=== PATIENT | female | born 1955 | race Caucasian/White ===

== ENCOUNTER → 2016-11-07 | Outpatient (CLI) | payer MEDICARE ==
[~2016-11-07] MED LIST: B/P; BARIUM SUSPENSION 2.1% (VANILLA SILQ) 450 ML PO ONE; CIPRO; FURO20TA4 PO; IOHEXOL 350 MG/ML 100 ML (OMNIPAQUE 350) VIAL IV ONE; LISI40TA PO; NAPR500T8 PO; NS 100 ML (IVPB) BAG IV ONE; PHEN-640 PO
--- NOTE | 2016-11-07 10:55 | Diagnostic Imaging Report ---
PROCEDURE: CT abdomen with contrast only. TECHNIQUE: Multiple contiguous axial images were obtained through the abdomen after the administration of intravenous contrast. INDICATION: Colitis and rectal bleeding. COMPARISON: No priors. TECHNIQUE: Post-IV contrast-enhanced CT abdomen performed with coronal reconstructions. FINDINGS: There is circumferential wall thickening of the visualized portions of the left colon. The transverse colon and the partially visualized ascending colon showed no wall thickening. No visualized pneumatosis or free air. The abdominal small and large bowel showed no evidence for obstruction. There is no visualized extravasation of the enteric contrast media, no pneumatosis or free gas. There is a moderate-sized retrocardiac gastric hernia, the lung bases nonacute. The abdominal aorta and the visualized proximal mesenteric branches appeared unremarkable. The liver, spleen, adrenals, pancreas unremarkable. The gallbladder partially contracted with no visualized stone. IMPRESSION: Abdominal CT reveals thickening of the doyle of the incompletely visualized descending colon without appreciable obstruction, perforation or abscess. This could reflect inflammatory large bowel disease, infectious colitis or other etiology and in a female patient of this age, nonocclusive ischemic left colitis would be a consideration. Inflammatory changes extend below the [id number] and the distal descending colon, the sigmoid and rectum are not included in the study. No visualized vascular abnormality. Moderate hiatal hernia. Remaining abdominal solid and hollow viscera normal. Dictated by: Dictated on workstation # [id number]
== END ==
LOC: RAD 07:45
PROVIDERS: ATTEND Nurse Practitioner Family
DX: K63.9 Disease of intestine, unspecified; K44.9 Diaphragmatic hernia without obstruction or gangrene
CPT/HCPCS: 74160

== ENCOUNTER 2016-11-15 05:34 | Outpatient (CLI) | payer MEDICARE ==
[~2016-11-15] VITALS: Ht 157.5 cm; Wt 114.8 kg
[~2016-11-15 05:34] MED LIST changes: -BARIUM SUSPENSION 2.1% (VANILLA SILQ) 450 ML PO ONE; -FURO20TA4 PO; -IOHEXOL 350 MG/ML 100 ML (OMNIPAQUE 350) VIAL IV ONE; -LISI40TA PO; -NAPR500T8 PO; -NS 100 ML (IVPB) BAG IV ONE
[2016-11-15] MEDS ORDERED: NAPR500T8 PO (09:44)
[2016-11-15] MEDS ORDERED: FURO20TA4 PO (09:44)
[2016-11-15] MEDS ORDERED: LISI40TA PO (09:44)
== END 2016-11-15 09:45 ==
LOC: PREOP 05:34
PROVIDERS: ATTEND Surgery
DX: Z01.818 Encounter for other preprocedural examination (principal); K21.9 Gastro-esophageal reflux disease without esophagitis; K62.5 Hemorrhage of anus and rectum

== ENCOUNTER 2016-11-19 11:29 | Day surgery (SDC) | payer MEDICARE ==
[~2016-11-19] VITALS: Ht 157.5 cm; Wt 114.8 kg
[~2016-11-19 11:29] MED LIST changes: +FURO20TA4 PO; +LISI40TA PO; +NAPR500T8 PO
[2016-11-19] MEDS ORDERED: LACTATED RINGERS 1,000 ML IV STA (11:36)
[2016-11-19 11:40] VITALS: BP 158/78
[2016-11-19] MEDS ORDERED: HURRICAINE EXT TUBE (BENZOCAINE) XX PRN (11:45)
--- NOTE | 2016-11-19 12:00 | Progress Note-Pre Operative ---
Pre-Operative Progress Note H&P Reviewed The H&P was reviewed, patient examined and no changes noted. Time Seen by Provider: 11:59 Date H&P Reviewed: Nov 19, 2016 Time H&P Reviewed: 12:00 Pre-Operative Diagnosis: Rectal bleed, Gastritis JEANNIE PULLIAM DO Nov 19, 2016 12:00
[2016-11-19] MEDS ORDERED: PROPOFOL INJECTION 0 ML IV ONE (12:09)
[2016-11-19] MEDS ORDERED: MIDAZOLAM 5 MG/5 ML (VERSED) VIAL ONE (12:10)
[2016-11-19] MEDS ORDERED: PROPOFOL INJECTION 50 ML IV ONE (12:48)
--- NOTE | 2016-11-19 13:25 | Progress Note-Post Operative ---
Post-Operative Progess Note Surgeon (s)/Mining Detail Draftsperson (s) Surgeon JEANNIE PULLIAM DO Mining Detail Draftsperson: none Pre-Operative Diagnosis Rectal bleed, Gastritis Post-Operative Diagnosis Gastritis Colon ulcer Diverticula Internal hemorrhoids Procedure & Operative Findings Date of Procedure 11/19/16 Procedure Performed/Findings EGD with bx Colon with cold bx Anesthesia Type IV sedation by ACTUARIAL SCIENCE TEACHER Estimated Blood Loss Estimated blood loss (mL): scant Specimens/Packing Specimens Removed Antral Bx Asc. Colon bx JEANNIE PULLIAM DO Nov 19, 2016 13:25
--- NOTE | 2016-11-19 13:27 | Endoscopy Discharge Instruct ---
Endo Procedure/Findings Findings 1.: Gastritis 2.: Other Findings (colonic ulcer) 3.: Diverticulosis 4.: Internal Hemorrhoids Discharge Instructions - Activity: You might feel a little sleepy until tomorrow. This is due to the medicine you received to relax you. Until tomorrow, you should: NOT drive a car, operate machinery or power tools. NOT drink any alcoholic beverages. NOT make any important decisions or sign importortant papers. Do not return to work until tomorrow, unless otherwise instructed. Resume previous activities tomorrow. Diet: Start by taking liquids. If you tolerate liquids, advance to solid food. Make an appointment for one week. Instructions: 1.: Colonscopy in 5 years Notify Physician - If you experience excessive bleeding, unusual abdominal pain, fever, or chest pain, contact your doctor immediately. [phone] Follow-Up: - I have received and understand the above instructions and will call my doctor if I have any further questions. Patient Signature Date Nurse Signature Other (Relationship) JEANNIE PULLIAM DO Nov 19, 2016 13:27
[2016-11-19 13:45] VITALS: BP 155/69
[2016-11-19 14:15] VITALS: BP 158/75
[2016-11-19 14:25] VITALS: BP 158/75
[2016-11-19] MEDS ORDERED: HURRICAINE EXT TUBE (BENZOCAINE) ONE (14:33)
--- NOTE | 2016-11-19 14:58 | OPERATIVE REPORT ---
DATE OF SERVICE: PREOPERATIVE DIAGNOSES: Abdominal pain, gastritis and rectal bleed with recent history of hematemesis. POSTOPERATIVE DIAGNOSES: Gastritis, blood in the esophagus and stomach, colon ulcer, diverticula, internal hemorrhage. PROCEDURE: 1. EGD with biopsy. 2. Colonoscopy with cold biopsy. SURGEON: Davion Varghese DO. LEAD MECHANICAL ENGINEER: None. ANESTHESIA: IV sedation by PAPER CONE MAKER. BLOOD LOSS: Scant. SPECIMENS: One biopsy from the antrum and one biopsy of an ulcer from the ascending colon. INDICATION FOR PROCEDURE: The patient is a 61-year-old female, who has been having gastritis and GERD-type symptoms according to her for a long period of time. When I was talking to her today, she threw up last night and there was blood in it. She also has a history of possible rectal bleeding and she has had abdominal pain. FINDINGS: The patient did have some blood in the esophagus and looked like it was into the stomach, but did not see any obvious cause for this bleeding. She has a little bit of gastritis, but no varices, no ulcers. In the colon, I saw what looked like to be an ulcer that was bleeding. She had some diverticula and internal hemorrhage, but no other polyps or masses. PROCEDURE NOTE: After informed consent was obtained, the patient was brought to the endoscopy suite, placed in the bed in left lateral decubitus position. She was administered IV sedation by the PAPER CONE MAKER, who monitored her vitals the entire time. I started with the EGD, pushed the scope down the mouth into the esophagus and down in the distal portion of the esophagus, saw some blood. Pushed into the stomach, again saw a little bit of blood up in the cardia and then pushed down towards the antrum. Very minimal erythema and gastritis. Pushed into the duodenum. Did not see any ulcers. Did not see any bleeding. Took a picture in here and took a picture of the antrum, then did a biopsy of the antrum. Retroflexed, again saw a little bit of blood, but did not see any hiatal hernia. Did not see any masses. Did not see any ulcers. Pulled back and looked at the GE junction. It looked good. Again, I did not see any ulcers. Did not see any varices. Pulled up through the esophagus, took another picture. Again did not see anything in the upper portion and then slowly pulled the scope out up into the hard palate and oropharynx. Again, did not see any obvious to cause any type of bleeding. The scope was then removed. I then switched the gloves and switched scopes and went to do colonoscopy. I inserted the coloscopy, pushed into about 110 cm, able to get all the way to the cecum. Took pictures of the appendiceal orifice, then able to get into the terminal ileum, took a picture. No bleeding, no signs of anything on the way in and in the ascending colon saw what looked like possibly some bleeding and an ulcer. Took a biopsy of this, but did not see any other ulcerations or inflammation in the intestine. I slowly withdrew the scope, insufflated, looking circumferentially at the doyle, looking at the cecum, up the ascending colon to the hepatic flexure and then down the transverse colon to the splenic flexure and then into the descending colon. In the sigmoid, saw some diverticula through here and then down into the rectum, retroflexed in the rectal vault, saw some internal hemorrhoids, took a picture of this, and then removed the scope. The patient tolerated the procedure and she was recovered in the endoscopy suite. Job ID: [id number] DocumentID: [id number] Dictated Date: 11/19/2016 13:32:39 Cyber Systems Administrator Date: 11/19/2016 14:03:59 Dictated By: DAVION VARGHESE DO
== END 2016-11-19 14:20 | disposition home or self-care (01) ==
LOC: ENDO 11:29
PROVIDERS: ATTEND Surgery
DX: K29.70 Gastritis, unspecified, without bleeding (principal); K63.3 Ulcer of intestine; K57.30 Diverticulosis of large intestine without perforation or abscess without bleeding; I10 Essential (primary) hypertension; E66.01 Morbid (severe) obesity due to excess calories; Z68.42 Body mass index [BMI] 45.0-49.9, adult

== ENCOUNTER 2017-01-31 15:34 | Emergency (ER) | payer MEDICARE ==
[~2017-01-31] VITALS: Ht 157.5 cm; Wt 108.9 kg
--- OUTSIDE RECORDS SUMMARY | 2017-01-31 15:39 | XMS REPORT ---
Author Author JOSSELINE MARTINEZ [facility] [place] eClinicalWorks Address Unknown Phone Unavailable Care Team Providers Care Periodicals Library Assistant Name Role Phone JOSSELINE MARTINEZ CP Unavailable Allergies, Adverse Reactions, Alerts Substance Reaction Event Type N.K.D.A. 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.27 Active Problem Dermatophytosis of nail 110.1 Active Problem HTN (hypertension) 401.9 Active Problem Acute bronchitis 466.0 Active Problem Chest pain 786.50 Active Problem Need for prophylactic vaccination and inoculation, Influenza V04.81 Active Problem Hallux valgus (acquired) 735.0 Active Problem Pain in joint, ankle and foot 719.47 Active Problem Pain in joint, pelvic region and thigh 719.45 Active Assessment Dyspepsia and other specified disorders of function of stomach 536.8 Active Assessment Depressive disorder, not elsewhere classified 311 Active Assessment Thoracic or lumbosacral neuritis or radiculitis, unspecified 724.4 Active Problem Diarrhea 787.91 Active Problem Thoracic or lumbosacral neuritis or radiculitis, unspecified 724.4 Active Assessment Chest pain 786.50 Active Problem Dyspepsia and other specified disorders of function of stomach 536.8 Active Problem Anxiety state, unspecified 300.00 Active Problem Depressive disorder, not elsewhere classified 311 Active Medications Medication Code System Code Instructions Start Date End Date Status Dosage Omeprazole [facility] [address]-18 20 MG Oct 22, 2013 take 1 capsule by Oral route before a meal 2 times per day Ibuprofen NDC [address]-82 800 MG Orally Three times a day w food Oct 1 [place] [address]-89 40 mg Orally Once a day Feb 25, 2014 1 Capsule dicyclomine NDC 0 20 mg Nov 26, 2013 1 tablet by Oral route 4 times per day PRN take 30 m before meals a dn at hs Lisinopril [facility] [address]-72 20 MG Orally Once a day Jan 21, 2014 take 1 tablet Furosemide [facility] [address]-13 20 MG Orally Once a day September 16, 2014 1 tablet Aspir-81 [facility] [address]-40 81 MG Orally Once a day 1 tablet Potassium [facility] [address]-88 99 mg September 14, 2013 1 Tablet by Oral route 1 time per day Procedures Procedure Coding System Code Date Office Visit, Est Pt., Level 4 CPT-4 86873 Nov 03, 2014 ASSAY OF TROPONIN, QUANT CPT-4 79970 Nov 03, 2014 ELECTROCARDIOGRAM, TRACING CPT-4 21809 Nov 03, 2014 VENIPUNCT, ROUTINE* CPT-4 10808 Nov 03, 2014 ASSAY OF CK (CPK) CPT-4 53898 Nov 03, 2014 COMPLETE CBC W/AUTO DIFF WBC CPT-4 59767 Nov 03, 2014 COMPREHEN METABOLIC PANEL CPT-4 09717 Nov 03, 2014 NATRIURETIC PEPTIDE CPT-4 73573 Nov 03, 2014 LACTATE (LD) (LDH) ENZYME CPT-4 84131 Nov 03, 2014 Vital Signs Date/Time: Nov 03, 2014 Temperature 99.2 F Weight 250.2 lbs Height 59.5 in BMI 49.68 Index Blood Pressure Diastolic 80 mmHg Blood Pressure Systolic 140 mmHg Cardiac Monitoring Heart Rate 74 bpm Results Name Result Date Reference Range Unit Abnormality Flag LDH Summary Purpose eClinicalWorks Submission
--- OUTSIDE RECORDS SUMMARY | 2017-01-31 15:40 | XMS REPORT | Continuity of Care Document ---
Author Author [facility] Address Unknown Phone Unavailable Allergies There is no data. Medications There is no data. Problems Date Dx Coded Attending Type Code Diagnosis Diagnosed By 09/14/2013 STEPHANE CHAMPION CLEO K 300.00 ANXIETY UNSPEC 09/14/2013 CALDERÓN DO CLEO K 311 DEPRESSIVE DISORDER NOS 09/14/2013 CALDERÓN DO CLEO K 536.8 DYSPEPSIA 09/14/2013 CALDERÓN DO CLOE K 724.4 BACK PAIN WITH RADIATION 09/14/2013 CALDERÓN DO CLEO K 780.79 FATIGUE 09/14/2013 CALDERÓN DO CLEO K 787.91 DIARRHEA 09/14/2013 CALDERÓN DO CLEO K 300.00 ANXIETY UNSPEC 09/14/2013 CALDERÓN DO CLEO K 311 DEPRESSIVE DISORDER NOS 09/14/2013 CALDERÓN DO CLEO K 536.8 DYSPEPSIA 09/14/2013 CALDERÓN DO CLEO K 724.4 BACK PAIN WITH RADIATION 09/14/2013 STEPHANE CHAMPION CLEO K 780.79 FATIGUE 09/14/2013 CALDERÓN DO CLEO K 787.91 DIARRHEA 09/14/2013 MARTINEZJOSSELINE CARTY APRN R 300.00 ANXIETY UNSPEC 09/14/2013 MARTINEZJOSSELINE CARTY APRN R 311 DEPRESSIVE DISORDER NOS 09/14/2013 MARTINEZJOSSELINE CARTY APRN R 536.8 DYSPEPSIA 09/14/2013 MARTINEZ JOSSELINE SHELTON R 724.4 BACK PAIN WITH RADIATION 09/14/2013 MARTINEZ JOSSELINE SHELTON R 780.79 FATIGUE 09/14/2013 MARTINEZ JOSSELINE SHELTON R 787.91 DIARRHEA 09/14/2013 CALDERÓN DO CLEO K 300.00 ANXIETY UNSPEC 09/14/2013 CALDERÓN DO CLEO K 311 DEPRESSIVE DISORDER NOS 09/14/2013 CALDERÓN DO CLEO K 536.8 DYSPEPSIA 09/14/2013 CALDERÓN DO CLEO K 724.4 BACK PAIN WITH RADIATION 09/14/2013 CALDERÓN DO, CLEO K 780.79 FATIGUE 09/14/2013 CALDERÓN DO, CLEO K 787.91 DIARRHEA 09/14/2013 CALDERÓN DO, CLEO K 300.00 ANXIETY UNSPEC 09/14/2013 CALDERÓN DO, CLEO K 311 DEPRESSIVE DISORDER NOS 09/14/2013 CALDERÓN DO, CLEO K 536.8 DYSPEPSIA 09/14/2013 CALDERÓN DO, CLEO K 724.4 BACK PAIN WITH RADIATION 09/14/2013 CALDERÓN DO, CLEO K 780.79 FATIGUE 09/14/2013 CALDERÓN DO, CLEO K 787.91 DIARRHEA 09/14/2013 CALDERÓN DO, CLEO K 300.00 ANXIETY UNSPEC 09/14/2013 CALDERÓN DO, CLEO K 311 DEPRESSIVE DISORDER NOS 09/14/2013 CALDERÓN DO, CLEO K 536.8 DYSPEPSIA 09/14/2013 CALDERÓN DO, CLEO K 724.4 BACK PAIN WITH RADIATION 09/14/2013 CALDERÓN DO, CLEO K 780.79 FATIGUE 09/14/2013 CALDERÓN DO, CLEO K 787.91 DIARRHEA 09/14/2013 MARTINEZ DIRECTOR OF DONOR RELATIONSJOSSELINE R 300.00 ANXIETY UNSPEC 09/14/2013 MARTINEZ DIRECTOR OF DONOR RELATIONS, JOSSELINE R 311 DEPRESSIVE DISORDER NOS 09/14/2013 MARTINEZ DIRECTOR OF DONOR RELATIONS, JOSSELINE R 536.8 DYSPEPSIA 09/14/2013 MARTINEZ DIRECTOR OF DONOR RELATIONS, JOSSELINE R 724.4 BACK PAIN WITH RADIATION 09/14/2013 MARTINEZ DIRECTOR OF DONOR RELATIONS, JOSSELINE R 780.79 FATIGUE 09/14/2013 MARTINEZ DIRECTOR OF DONOR RELATIONS, JOSSELINE R 787.91 DIARRHEA 09/14/2013 MARTINEZ DIRECTOR OF DONOR RELATIONS, JOSSELINE R 300.00 ANXIETY UNSPEC 09/14/2013 MARTINEZ DIRECTOR OF DONOR RELATIONS, JOSSELINE R 311 DEPRESSIVE DISORDER NOS 09/14/2013 MARTINEZ DIRECTOR OF DONOR RELATIONS, JOSSELINE R 536.8 DYSPEPSIA 09/14/2013 MARTINEZ DIRECTOR OF DONOR RELATIONS, JOSSELINE R 724.4 BACK PAIN WITH RADIATION 09/14/2013 MARTINEZ DIRECTOR OF DONOR RELATIONS, JOSSELINE R 780.79 FATIGUE 09/14/2013 MARTINEZ DIRECTOR OF DONOR RELATIONS, JOSSELINE R 787.91 DIARRHEA 09/14/2013 CALDERÓN DO, CLEO K 300.00 ANXIETY UNSPEC 09/14/2013 CALDERÓN DO, CLEO K 311 DEPRESSIVE DISORDER NOS 09/14/2013 CALDERÓN DO, CLEO K 536.8 DYSPEPSIA 09/14/2013 CALDERÓN DO, CLEO K 724.4 BACK PAIN WITH RADIATION 09/14/2013 CALDERÓN DO, CLEO K 780.79 FATIGUE 09/14/2013 CALDERÓN DO, CLEO K 787.91 DIARRHEA 09/14/2013 CALDERÓN DO, CLEO K 300.00 ANXIETY UNSPEC 09/14/2013 CALDERÓN DO, CLEO K 311 DEPRESSIVE DISORDER NOS 09/14/2013 CALDERÓN DO, CLEO K 536.8 DYSPEPSIA 09/14/2013 CALDERÓN DO, CLEO K 724.4 BACK PAIN WITH RADIATION 09/14/2013 CALDERÓN DO, CLEO K 780.79 FATIGUE 09/14/2013 CALDERÓN DO, CLEO K 787.91 DIARRHEA 09/24/2013 CALDERÓN DO, CLEO K 719.47 PAIN- FOOT 09/24/2013 JOSSELINE MARTINEZ APRN 719.47 PAIN- FOOT 09/24/2013 CALDERÓN DO, CLEO K 719.47 PAIN- FOOT 09/24/2013 CALDERÓN DO, CLEO K 719.47 PAIN- FOOT 09/24/2013 CALDERÓN DO, CLEO K 719.47 PAIN- FOOT 09/24/2013 MARTINEZ JOSSELINE SHELTON 719.47 PAIN- FOOT 09/24/2013 MARTINEZ JOSSELINE SHELTON 719.47 PAIN- FOOT 09/24/2013 CALDERÓN DO, CLEO K 719.47 PAIN- FOOT 09/24/2013 CALDERÓN DO, CLEO K 719.47 PAIN- FOOT 11/26/2013 CALDERÓN DO, CLEO K 719.45 PAIN- HIP 11/26/2013 CALDERÓN DO, CLEO K V04.81 FLU SHOT 11/26/2013 CALDERÓN DO, CLEO K 719.45 PAIN- HIP 11/26/2013 CALDERÓN DO, CLEO K V04.81 FLU SHOT 11/26/2013 CALDERÓN DO, CLEO K 719.45 PAIN- HIP 11/26/2013 CALDERÓN DO, CLEO K V04.81 FLU SHOT 11/26/2013 MARTINEZ JOSSELINE SHELTON 719.45 PAIN- HIP 11/26/2013 MARTINEZ JOSSELINE SHELTON V04.81 FLU SHOT 11/26/2013 MARTINEZ JOSSELINE SHELTON 719.45 PAIN- HIP 11/26/2013 MARTINEZ JOSSELINE SHELTON V04.81 FLU SHOT 11/26/2013 CALDERÓN DO, CLEO K 719.45 PAIN- HIP 11/26/2013 CALDERÓN DO, CLEO K V04.81 FLU SHOT 11/26/2013 CALDERÓN DO, CLEO K 719.45 PAIN- HIP 11/26/2013 CALDERÓN DO, CLEO K V04.81 FLU SHOT 12/11/2013 CALDERÓN DO, CLEO K 110.1 ONYCHOMYCOSIS 12/11/2013 CALDERÓN DO, CLEO K 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 12/11/2013 CALDERÓN DO, CLEO K 735.0 HALLUX VALGUS (ACQUIRED) 12/11/2013 CALDERÓN DO, CLEO K 110.1 ONYCHOMYCOSIS 12/11/2013 CALDERÓN DO, CLEO K 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 12/11/2013 CALDERÓN DO, CLEO K 735.0 HALLUX VALGUS (ACQUIRED) 12/11/2013 JOSSELINE MARTINEZ APRN 110.1 ONYCHOMYCOSIS 12/11/2013 JOSSELINE MARTINEZ APRN 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 12/11/2013 JOSSELINE MARTINEZ APRN 735.0 HALLUX VALGUS (ACQUIRED) 12/11/2013 JOSSELINE MARTINEZ APRN 110.1 ONYCHOMYCOSIS 12/11/2013 JOSSELINE MARTINEZ APRN 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 12/11/2013 JOSSELINE MARTINEZ APRN 735.0 HALLUX VALGUS (ACQUIRED) 12/11/2013 STEPHANE CHAMPION CLEO K 110.1 ONYCHOMYCOSIS 12/11/2013 CALDERÓN DO CLEO K 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 12/11/2013 CALDERÓN DO CLEO K 735.0 HALLUX VALGUS (ACQUIRED) 12/11/2013 CALDERÓN DO, CLEO K 110.1 ONYCHOMYCOSIS 12/11/2013 CALDERÓN DO, CLEO K 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 12/11/2013 CALDERÓN DO, CLEO K 735.0 HALLUX VALGUS (ACQUIRED) 03/22/2014 CALDERÓN DO, CLEO K 466.0 BRONCHITIS, ACUTE 03/22/2014 CALDERÓN DO, CLEO K 466.0 BRONCHITIS, ACUTE Procedures Code Description [place] [address] ROUTINE VENIPUNCTURE 09/14/2013 32937 H PYLORI (IN-HOUSE) 09/14/2013 77679 MAGNESIUM 09/15/2013 69698 CBC 09/15/2013 29665 CMP 09/15/2013 [id number] GFR CALC (RESULT ONLY) 09/15/2013 26567 TSH 09/15/2013 16754 RA FACTOR 09/16/2013 ANAANA ALLEN ANALYZER (SCREEN) 09/16/2013 76633 XRAY FEET, PHILIPPE 09/29/2013 Podiatry Malik, Nunu 10/22/2013 92384 XRAY LUMBAR SPINE 2 OR 3 VIEWS 11/26/2013 51304 XRAY HIPS BILATERAL 11/26/2013 14387 DEBRIDE NAIL >6 12/11/2013 72236 XRAY LUMBAR SPINE 2 OR 3 VIEWS 12/15/2013 18914 XRAY HIPS BILATERAL 12/15/2013 88484 OXIMETRY 03/22/2014 62791 INFLUENZA A & B (IN-HOUSE) 03/22/2014 Results There is no data. Encounters ACCT No. Visit Date/Time Discharge Status Pt. Type Provider Facility Loc./Unit Complaint [id number] 06/03/2014 09:08:00 06/03/2014 23:59:59 CLS Outpatient CLEO CALDERÓN DO [id number] 03/22/2014 09:09:00 03/22/2014 23:59:59 CLS Outpatient CLEO CALDERÓN DO [id number] 02/17/2014 00:00:00 02/17/2014 23:59:59 CLS Outpatient JOSSELINE MARTINEZ APRN [id number] 01/21/2014 13:47:00 01/21/2014 23:59:59 CLS Outpatient JOSSELINE MARTINEZ APRN [id number] 12/24/2013 14:09:00 12/24/2013 23:59:59 CLS Outpatient CLEO CALDERÓN DO [id number] 12/11/2013 08:11:00 12/11/2013 23:59:59 CLS Outpatient CLEO CALDERÓN DO [id number] 11/26/2013 14:52:00 11/26/2013 23:59:59 CLS Outpatient CLEO CALDERÓN DO [id number] 10/22/2013 15:21:00 10/22/2013 23:59:59 CLS Outpatient JOSSELINE MARTINEZ APRN [id number] 09/28/2013 09:53:00 09/28/2013 23:59:59 CLS Outpatient CLEO CALDERÓN DO [id number] 09/14/2013 14:59:00 09/14/2013 23:59:59 [facility] Outpatient CLEO CALDERÓN DO
--- OUTSIDE RECORDS SUMMARY | 2017-01-31 15:40 | XMS REPORT ---
Author Author JOSSELINE MARTINEZ Organization eClinicalWorks Address Unknown Phone Unavailable Care Team Providers Care Sheet Music Salesperson Name Role Phone JOSSELINE MARTINEZ CP Unavailable Allergies No Known Allergies Problems Problem Type Condition ICD-9 Code Onset Dates Condition Status Problem Depressive disorder, not elsewhere classified 311 Active Problem Dermatophytosis of nail 110.1 Active Problem Other malaise and fatigue 780.79 Active Problem Acute bronchitis 466.0 Active Problem Pain in joint, ankle and foot 719.47 Active Problem HTN (hypertension) 401.9 Active Problem Hallux valgus (acquired) 735.0 Active Problem Secondary localized osteoarthrosis, 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.27 Active Problem Pain in joint, pelvic region and thigh 719.45 Active Problem Need for prophylactic vaccination and inoculation, Influenza V04.81 Active Problem Anxiety state, unspecified 300.00 Active Problem Diarrhea 787.91 Active Problem Thoracic or lumbosacral neuritis or radiculitis, unspecified 724.4 Active Assessment HTN (hypertension) 401.9 Active Problem Dyspepsia and other specified disorders of function of stomach 536.8 Active Medications Medication Code System Code Instructions Start Date End Date Status Dosage Furosemide [facility] [address]-85 20 MG Orally Once a day September 16, 2014 1 tablet Lisinopril [facility] [address]-84 20 MG Orally Once a day Jan 21, 2014 take 1 tablet Results No Known Results Summary Purpose eClinicalWorks Submission
--- OUTSIDE RECORDS SUMMARY | 2017-01-31 15:40 | XMS REPORT ---
Author Author JOSSELINE MARTINEZ [facility] eClinicalWorks Address Unknown Phone Unavailable Care Team Providers Care Financial Sales Representative Name Role Phone JOSSELINE MARTINEZ CP Unavailable Allergies, Adverse Reactions, Alerts Substance Reaction Event Type N.K.D.A. 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.27 Active Problem Chest pain 786.50 Active Problem HTN (hypertension) 401.9 Active Problem Strep pharyngitis J02.0 Active Problem Pain in joint, pelvic region and thigh 719.45 Active Problem Need for prophylactic vaccination and inoculation, Influenza V04.81 Active Problem Acute bronchitis 466.0 Active Problem Pain in joint, ankle and foot 719.47 Active Assessment Strep pharyngitis J02.0 Active Problem Thoracic or lumbosacral neuritis or radiculitis, unspecified 724.4 Active Problem Dyspepsia and other specified disorders of function of stomach 536.8 Active Problem Anxiety state, unspecified 300.00 Active Problem Depressive disorder, not elsewhere classified 311 Active Problem Diarrhea 787.91 Active Problem Other malaise and fatigue 780.79 Active Medications Medication Code System Code Instructions Start Date End Date Status Dosage Furosemide [facility] [address]-58 20 MG Orally Once a day September 16, 2014 1 tablet Amoxicillin [facility] [address]-61 500 MG Orally 3 times a day Jan 18, 2015 Jan 28, 2015 1tablet Aspir-81 [facility] [address]-07 81 MG Orally Once a day 1 tablet Fluoxetine [facility] [address]-21 40 mg Orally Once a day Feb 25, 2014 1 Capsule Omeprazole [facility] [address]-01 20 MG Oct 22, 2013 take 1 capsule by Oral route before a meal 2 times per day Ibuprofen [facility] [address]-82 800 MG Orally Three times a day w food Oct 1 tablet Lisinopril [facility] [address]-87 20 MG Orally Once a day Jan 21, 2014 take 1 tablet Potassium [facility] [address]-21 99 mg September 14, 2013 1 Tablet by Oral route 1 time per day dicyclomine NDC 0 20 mg Nov 26, 2013 1 tablet by Oral route 4 times per day PRN take 30 m before meals a dn at Procedures Procedure Coding System Code Date STREP A ASSAY W/OPTIC CPT-4 61868 Jan 18, 2015 Office Visit, Est Pt., Level 3 CPT-4 89136 Jan 18, 2015 Vital Signs Date/Time: Jan 18, 2015 Temperature 100.5 F Weight 255 lbs Height 59.5 in BMI 50.64 Index Blood Pressure Diastolic 78 mmHg Blood Pressure Systolic 128 mmHg Cardiac Monitoring Heart Rate 84 bpm Results Name Result Date Reference Range Unit Abnormality Flag STREP A (IN HOUSE) ----STREP A Positive [id number] ----Control + [id number] ----Lot # [id number] ----Exp date [id number] Summary Purpose eClinicalWorks Submission
--- OUTSIDE RECORDS SUMMARY | 2017-01-31 15:40 | XMS REPORT ---
Author Author JOSSELINE MARTINEZ [facility] Address [address] [place] [address] Care Team Providers Care Diesel Engineer Name Role Phone MARTINEZ, JOSSELINE Unavailable PROBLEMS Type Condition ICD9-CM Code [id number] Code Onset Dates Condition Status SNOMED Code Problem Dermatophytosis of nail 110.1 Active 717380888 Problem Chest pain 786.50 Active 62742719 Problem HTN (hypertension) 401.9 Active 72308136 Problem Functional diarrhea K59.1 Active 75146099 Problem Diarrhea 787.91 Active 97533365 Problem Essential hypertension I10 Active 06206540 Problem Need for prophylactic vaccination and inoculation, Influenza V04.81 Active 966798880 Problem Acute pain of left knee M25.562 Active 37788824 Problem Strep pharyngitis J02.0 Active 01482550 Problem Arthritis M19.90 Active 2843551 Problem Depression, unspecified depression type F32.9 Active 30018192 Problem Pain in joint, ankle and foot 719.47 Active 689917390 Problem Pain in joint, pelvic region and thigh 719.45 Active 604102517 Problem Other malaise and fatigue 780.79 Active 063709264 Problem Hallux valgus (acquired) 735.0 Active 66501475 Problem Dyspepsia and other specified disorders of function of stomach 536.8 Active 650110013 Problem Acute bronchitis 466.0 Active 95323920 Problem Secondary localized osteoarthrosis, 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 Unknown Non Drug Allergy Jan, Unknown SOCIAL HISTORY No smoking Hx information available PLAN OF CARE Activity Details Follow Up 3 Months Reason:depresion/arthritis VITAL SIGNS Height 59.5 in 2016-01-30 Weight 251 lbs 2016-01-30 Temperature 98.5 degrees Fahrenheit 2016-01-30 Heart Rate 69 bpm 2016-01-30 Respiratory Rate 16 2016-01-30 BMI 49.84 kg/m2 2016-01-30 Blood pressure systolic 130 mmHg 2016-01-30 Blood pressure diastolic 80 mmHg 2016-01-30 MEDICATIONS Medication Instructions Dosage Frequency Start Date End Date Duration Status Ibuprofen 800 MG Orally Three times a day w food 1 tablet Oct, Active Aspir-81 81 MG Orally Once a day 1 tablet 24h Active Hydrocodone-Acetaminophen 325-5 MG Orally every 6 hrs 1 tablet as needed 6h June, Active Furosemide 20 MG Orally Once a day 1 tablet 24h Aug, Active Potassium 99 mg 1 Tablet by Oral route 1 time per day Aug, Active Omeprazole 20 mg take 1 capsule by Oral route before a meal 2 times per day 12h Oct, Active dicyclomine 10 mg by oral route 4 times a day 1-2 tablet 30 m before meals 6h Nov, Active Fluoxetine 40 mg Orally Once a day 1 Capsule 24h Feb, Active Ondansetron 4 MG Orally every 8 hrs 1 tablet on the tongue and allow to dissolve 8h Dec, 07 days Active Lisinopril 40 mg Orally Once a day take 1/2 tablet 24h Jan, Active RESULTS Name Result Date Reference Range UA LONG DIP (IN HOUSE) 2016-01-30 Lot # [id number] Exp date 01/04 Clarity clear Color yellow Odor no GLU neg PHILIPPE neg KET neg SG 1.020 BLO neg pH 6.0 Protein neg URO 0.2 NIT neg ELVIA neg Lot # Exp PROCEDURES Procedure Date Ordered Related Diagnosis Body Site [facility] VISIT ESTABLISHED PATIENT Jan 30, 2016 Office Visit, Est Pt., Level 3 Jan 30, 2016 URINALYSIS, AUTO, W/O SCOPE Jan 30, 2016 IMMUNIZATIONS No Known Immunizations
--- OUTSIDE RECORDS SUMMARY | 2017-01-31 15:40 | XMS REPORT ---
Author Author JOSSELINE MARTINEZ [facility] Address [address] [place] [address] Care Team Providers Care Technology Sales Consultant Name Role Phone MARTINEZ, JOSSELINE Unavailable PROBLEMS Type Condition ICD9-CM Code [id number] Code Onset Dates Condition Status SNOMED Code Problem Acute bronchitis 466.0 Active 45066107 Problem Chest pain 786.50 Active 20427723 Problem HTN (hypertension) 401.9 Active 37402906 Problem Essential hypertension I10 Active 91658028 Problem Diarrhea 787.91 Active 71324385 Problem Arthritis M19.90 Active 1033522 Problem Anxiety state, unspecified 300.00 Active 617203389 Assessment Essential hypertension I10 Oct, Active 81096034 Problem Acute pain of left knee M25.562 Active 68448118 Problem Strep pharyngitis J02.0 Active 84876138 Problem Functional diarrhea K59.1 Active 05780511 Problem Depression, unspecified depression type F32.9 Active 74664680 Problem Depressive disorder, not elsewhere classified 311 Active 76635865 Problem Other malaise and fatigue 780.79 Active 318453768 Problem Thoracic or lumbosacral neuritis or radiculitis, unspecified 724.4 Active 055334447 Problem Dyspepsia and other specified disorders of function of stomach 536.8 Active 523153322 Problem Hallux valgus (acquired) 735.0 Active 56074597 Problem Need for prophylactic vaccination and inoculation, Influenza V04.81 Active 862788604 Problem Dermatophytosis of nail 110.1 Active 896186414 Problem Pain in joint, pelvic region and thigh 719.45 Active 525630581 Problem Secondary localized osteoarthrosis, 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 Unknown Non Drug Allergy Oct, Unknown SOCIAL HISTORY No smoking Hx information available PLAN OF CARE VITAL SIGNS Height 59.5 in 2015-11-03 Weight 255 lbs 2015-11-03 Heart Rate 65 bpm 2015-11-03 Respiratory Rate 16 2015-11-03 BMI 50.64 kg/m2 2015-11-03 Blood pressure systolic 120 mmHg 2015-11-03 Blood pressure diastolic 72 mmHg 2015-11-03 MEDICATIONS Medication Instructions Dosage Frequency Start Date End Date Duration Status Fluoxetine 40 mg Orally Once a day 1 Capsule 24h Feb, Active dicyclomine 10 mg by oral route 4 times a day 1-2 tablet 30 m before meals 6h Nov, Active Furosemide 20 MG Orally Once a day 1 tablet 24h Aug, Active Lisinopril 40 mg Orally Once a day take 1/2 tablet 24h Jan, Active Omeprazole 20 mg take 1 capsule by Oral route before a meal 2 times per day 12h Oct, Active Potassium 99 mg 1 Tablet by Oral route 1 time per day Aug, Active Aspir-81 81 MG Orally Once a day 1 tablet 24h Active Hydrocodone-Acetaminophen 325-5 MG Orally every 6 hrs 1 tablet as needed 6h June, Active Ibuprofen 800 MG Orally Three times a day w food 1 tablet Oct, Active RESULTS No Results PROCEDURES Procedure Date Ordered Related Diagnosis Body Site [facility] VISIT ESTABLISHED PATIENT Nov 03, 2015 Office Visit, Est Pt., Level 3 Nov 03, 2015 IMMUNIZATIONS No Known Immunizations
--- OUTSIDE RECORDS SUMMARY | 2017-01-31 15:40 | XMS REPORT ---
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 Active Problem Need for prophylactic vaccination and inoculation, Influenza V04.81 Active Problem Hallux valgus (acquired) 735.0 Active Problem Strep pharyngitis J02.0 Active Problem Chest pain 786.50 Active Problem Acute pain of left knee M25.562 Active Problem Pain in joint, ankle and foot 719.47 Active Problem Pain in joint, pelvic region and thigh 719.45 Active Problem HTN (hypertension) 401.9 Active Problem Acute bronchitis 466.0 Active Problem Anxiety state, unspecified 300.00 Active Problem Dyspepsia and other specified disorders of function of stomach 536.8 Active Problem Depressive disorder, not elsewhere classified 311 Active Problem Diarrhea 787.91 Active Problem Other malaise and fatigue 780.79 Active Problem Thoracic or lumbosacral neuritis or radiculitis, unspecified 724.4 Active Problem Dermatophytosis of nail 110.1 Active Medications Medication Code System Code Instructions Start Date End Date Status Dosage Lisinopril [facility] [address]-26 40 mg Orally Once a day Jan 21, 2014 take 1/2 tablet Results No Known Results Summary Purpose [employer] Submission
--- NOTE | 2017-01-31 16:30 | ED Lower Extremity ---
General Chief Complaint: Lower Extremity Stated Complaint: LT KNEE PAIN Nursing Triage Note: pt reports she went to answer her phone and felt a pop/pain in l knee when standing from her chair. pt reports she has an old injury to her l knee that occasionally she has trouble with. Nursing Sepsis Screen: No Definite Risk Source: patient Exam Limitations: no limitations History of Present Illness Time seen by provider: 15:39 Initial Comments This 61-year-old woman presents to the emergency room with complaints of left knee pain. She was unable to get into her primary care provider and therefore came to the ER. She reports old injury to the left knee and arthroscopic be remotely. About one month ago the knee began hurting again area today she had sudden onset of more severe pain when she stood up. The pain is located on the lateral aspect of the knee and around toward the posterior. She was able to ambulate into the exam room with some difficulty. She denies any blunt injury to the knee. Allergies and Home Medications Allergies Coded Allergies: No Known Drug Allergies (Unverified , 01/17/16) Home Medications Furosemide 20 Mg Tablet, 20 MG PO DAILY, (Reported) Hydrocodone/Acetaminophen 1 Each Tablet, 1 EACH PO Q4H PRN for PAIN-MODERATE TO SEVERE, #15 Prescribed by: ABI OLIVERA on 01/31/17 6908 Lisinopril 40 Mg Tablet, 20 MG PO DAILY, (Reported) take 1/2 of 40mg tab Naproxen 500 Mg Tablet.dr, 500 MG PO BID PRN for joint pain, (Reported) Constitutional: no symptoms reported EENTM: no symptoms reported Respiratory: no symptoms reported Cardiovascular: no symptoms reported Gastrointestinal: no symptoms reported Genitourinary: no symptoms reported Musculoskeletal: see HPI Skin: no symptoms reported Psychiatric/Neurological: No Symptoms Reported Past Tyqwxgl-Execlv-Bhxxtg Hx Patient Social History Alcohol Use: Denies Use Recreational Drug Use: No Smoking Status: Never a Smoker Recent Foreign Travel: No Contact w/Someone Who Travel: No Recent Infectious Disease Expo: No Recent Hopitalizations: No Physical Abuse: No Sexual Abuse: No Mistreated: No Fear: No Seasonal Allergies Seasonal Allergies: No Surgeries History of Surgeries: Yes (RIGHT FOOT, RIGHT WRIST, l knee scope, ) Surgeries: Orthopedic Respiratory History of Respiratory Disorde: No Cardiovascular History of Cardiac Disorders: Yes Cardiac Disorders: Hypertension Neurological History of Neurological Disord: No Reproductive System : No Genitourinary History of Genitourinary Disor: No Gastrointestinal History of Gastrointestinal Di: Yes (rectal bleeding) Gastrointestinal Disorders: Gastroesophageal Reflux, Chronic Diarrhea Musculoskeletal History of Musculoskeletal Dis: Yes Musculoskeletal Disorders: Arthritis Endocrine History of Endocrine Disorders: No HEENT History of HEENT Disorders: No Cancer History of Cancer: No Psychosocial History of Psychiatric Problem: Yes Behavioral Health Disorders: Sleep Difficulties, Anxiety Suicide Risk Score: 0 Integumentary History of Skin or Integumenta: No Blood Transfusions History of Blood Disorders: No Physical Exam Vital Signs Vital Sign - Last 12Hours 01/31/17 16:03 Temp 98.1 Pulse 70 Resp 18 B/P (MAP) 140/63 (88) Pulse Ox 97 Capillary Refill : Less Than 3 Seconds General Appearance: WD/WN, mild distress HEENT: PERRL/EOMI, normal ENT inspection, pharynx normal Neck: normal inspection Cardiovascular: regular rate, rhythm, no edema, no murmur Respiratory: lungs clear, normal breath sounds, no respiratory distress, no accessory muscle use Legs: left leg non-tender, left leg normal inspection, left leg normal range of motion, left leg other (no calf tenderness, negative Leobardo) Knees: left knee normal inspection, left knee pain, left knee other ( tenderness over the lateral joint line and over the posterior knee. No significant pain with range of motion) Ankles: left ankle non-tender, left ankle normal inspection, left ankle no evidence of injury Feet: left foot non-tender, left foot normal range of motion, left foot no evidence of injury, left foot other (significant bunion deformity) Neurologic/Tendon: normal sensation, normal motor functions Neurologic/Psychiatric: economic analysis director II-XII nml as tested, no motor/sensory deficits, alert, normal mood/affect, oriented x 3 Skin: normal color, warm/dry Progress/Results/Core Measures Results/Orders My Orders Orders - ABI WATERS MD Knee, Left, 3 Views (01/31/17 15:52) Us Venous Lower Ext Lt (01/31/17 16:35) Ketorolac Injection (Toradol Injection) (01/31/17 17:45) Medications Given in ED Current Medications Medications Dose Ordered Sig/Moe Route Start Time Stop Time Status Last Admin Dose Admin Ketorolac Tromethamine 60 mg ONCE ONCE IM 01/31/17 17:45 01/31/17 17:46 DC 01/31/17 18:07 60 MG Vital Signs/I&O Vital Sign - Last 12Hours 01/31/17 16:03 Temp 98.1 Pulse 70 Resp 18 B/P (MAP) 140/63 (88) Pulse Ox 97 Blood Pressure Mean: 88 Progress Note : Progress Note Moreau cyst was identified on ultrasound. Toradol was administered for pain management. Diagnostic Imaging Diagonstic Imaging: Xray Plain Films/CT/US/NM/MRI: knee Comments Left knee x-ray viewed by me and report reviewed. See report below: NAME: [facility] REC#: [id number] PT STATUS: REG ER : 1955 PHYSICIAN: ABI WATERS MD ADMIT DATE: 01/31/17/ER Draft Date of Exam:01/31/17 KNEE, LEFT, 3 VIEWS INDICATION: Left knee pain. EXAMINATION: AP, oblique, and lateral views of the left knee are obtained. FINDINGS: There is mild marginal spurring throughout the knee joint. No fracture is identified. There is no abnormal lytic or sclerotic focus. Note is made of chondrocalcinosis involving the menisci. No definite joint effusion is seen. IMPRESSION: Mild degenerative changes in the left knee without acute abnormality identified. Dictated on workstation # [id number] Dict: 01/31/17 1638 Trans: 01/31/17 1642 [id number] Interpreted by: ARIEL HUMPHREYS MD Diagonstic Imaging: Ultrasound Plain Films/CT/US/NM/MRI: leg Comments Left lower extremity ultrasound report reviewed. See report below: NAME: [facility] REC#: [id number] PT STATUS: REG ER : 1955 PHYSICIAN: ABI WATERS MD ADMIT DATE: 01/31/17/ER Draft Date of Exam:01/31/17 US VENOUS LOWER EXT LT PROCEDURE: US left lower extremity venous. TECHNIQUE: Multiple real-time grayscale images were obtained over the left lower extremity in various projections. Additional duplex Doppler and color Doppler images were also obtained. INDICATION: Pain FINDINGS: Cystic mass popliteal fossa 3.7 x 2.8 cm consistent with a Moreau's cyst. Femoropopliteal deep venous system widely patent. No deep or visualized superficial thrombus. IMPRESSION: Negative for DVT, however, 3.7 cm popliteal fossa Moreau's cyst noted. Dictated on workstation # [id number] Dict: 01/31/17 1725 Trans: 01/31/17 1731 [facility] [id number] Interpreted by: ARIEL FIGUEROA Departure Impression Impression: Primary Impression: Moreau's cyst of knee Qualified Codes: M71.22 - Synovial cyst of popliteal space [Moreau], left knee Additional Impression: Left knee pain Qualified Codes: M25.562 - Pain in left knee Disposition: 01 HOME, SELF-CARE Condition: Improved Departure-Patient Inst. Referrals: [facility] NIYAH (PCP) Primary Care Physician MELISSA CORLEY (Family) Primary Care Physician Patient Instructions: Moreau's Cyst Add. Discharge Instructions: Follow-up with your doctor as soon as possible. Ask about seeking referral to an orthopedic provider for further evaluation and treatment of the Moreau's cyst. Rest, elevation, and 20 minute intervals of icing may be helpful in reducing pain and swelling. You may continue using a compressive wrap if that is helpful. Return to care if symptoms worsen. For pain, take ibuprofen up to 600 mg every 6 hours as needed. Add your hydrocodone or Tylenol for pain not controlled by ibuprofen. All discharge instructions reviewed with patient and/or family. Voiced understanding. Scripts Hydrocodone/Acetaminophen (Hydrocodon -Acetaminophen 5-325) 1 Each Tablet 1 EACH PO Q4H Y for PAIN-MODERATE TO SEVERE, #15 TAB Prov: ABI WATERS MD 01/31/17 ABI WATERS MD Jan 31, 2017 16:30
--- NOTE | 2017-01-31 16:43 | Diagnostic Imaging Report ---
INDICATION: Left knee pain. EXAMINATION: AP, oblique, and lateral views of the left knee are obtained. FINDINGS: There is mild marginal spurring throughout the knee joint. No fracture is identified. There is no abnormal lytic or sclerotic focus. Note is made of chondrocalcinosis involving the menisci. No definite joint effusion is seen. IMPRESSION: Mild degenerative changes in the left knee without acute abnormality identified. Dictated by: Dictated on workstation # [id number]
--- NOTE | 2017-01-31 17:31 | Diagnostic Imaging Report ---
PROCEDURE: US left lower extremity venous. TECHNIQUE: Multiple real-time grayscale images were obtained over the left lower extremity in various projections. Additional duplex Doppler and color Doppler images were also obtained. INDICATION: Pain FINDINGS: Cystic mass popliteal fossa 3.7 x 2.8 cm consistent with a Moreau's cyst. Femoropopliteal deep venous system widely patent. No deep or visualized superficial thrombus. IMPRESSION: Negative for DVT, however, 3.7 cm popliteal fossa Moreau's cyst noted. Dictated by: Dictated on workstation # [id number]
[2017-01-31] MEDS ORDERED: KETOROLAC 60 MG/2 ML VIAL IM ONE (17:45)
[2017-01-31] MEDS ORDERED: HYDR-3812 PO (17:48)
[2017-01-31 18:15] VITALS: BP 135/70
== END 2017-01-31 18:15 | disposition home or self-care (01) ==
LOC: EDUNIT# 15:34 → ER 15:36
DX: M71.22 Synovial cyst of popliteal space [Baker], left knee (principal); I10 Essential (primary) hypertension; K21.9 Gastro-esophageal reflux disease without esophagitis; F41.9 Anxiety disorder, unspecified; M19.90 Unspecified osteoarthritis, unspecified site; Z87.19 Personal history of other diseases of the digestive system; X50.0XXA Overexertion from strenuous movement or load, initial encounter
CPT/HCPCS: 73562; 96372; 99284

== ENCOUNTER 2018-10-27 15:30 | Inpatient (IN) | payer MEDICARE ==
[~2018-10-27] VITALS: Ht 152.4 cm; Wt 120.3 kg
[2018-10-27] VITALS (7 sets, daily range): BP systolic 148–173; BP diastolic 57–81
[~2018-10-27 15:30] MED LIST changes: +ACHD5005 PO
[2018-10-27 15:57] LABS: BASOPHILS % (AUTO) 0 % (0-10); EOSINOPHILS # (AUTO) 0.1 10^3/uL (0.0-0.3); EOSINOPHILS % (AUTO) 1 % (0-10); LYMPHOCYTES # (AUTO) 1.5 X 10^3 (1.0-4.0); LYMPHOCYTES % (AUTO) 16 % (12-44); MEAN CORPUSCULAR HEMOGLOBIN 21 PG (25-34); MEAN CORPUSCULAR HGB CONC 25 G/DL (32-36); MEAN CORPUSCULAR VOLUME 82 FL (80-99); MEAN PLATELET VOLUME 9.4 FL (7.4-10.4); MONOCYTES # (AUTO) 0.6 X 10^3 (0.0-1.0); MONOCYTES % (AUTO) 7 % (0-12); NEUTROPHILS # (AUTO) 7.2 X 10^3 (1.8-7.8); NEUTROPHILS % (AUTO) 77 % (42-75); PLATELET COUNT 306 10^3/uL (130-400); RED CELL DISTRIBUTION WIDTH 18.3 % (10.0-14.5); WHITE BLOOD COUNT 9.4 10^3/uL (4.3-11.0)
[2018-10-27 16:00] LABS: BILIRUBIN,URINE NEGATIVE (NEGATIVE); CLARITY,URINE CLEAR; COLOR,URINE YELLOW; GLUCOSE, URINE (UA) NEGATIVE (NEGATIVE); KETONES,URINE NEGATIVE (NEGATIVE); LEUKOCYTE ESTERASE ,URINE NEGATIVE (NEGATIVE); NITRITE,URINE NEGATIVE (NEGATIVE); PH,URINE 7 (5-9); PROTEIN,URINE NEGATIVE (NEGATIVE); UROBILINOGEN,URINE NORMAL (NORMAL)
[2018-10-27 16:01] LABS: HEMATOCRIT 19 % (35-52); HEMOGLOBIN 4.8 G/DL (11.5-16.0)
[2018-10-27 16:07] LABS: BACTERIA,URINE NEGATIVE /HPF; SQUAMOUS EPITHELIAL CELL,UR 0-2 /HPF
[2018-10-27 16:26] LABS: ALANINE AMINOTRANSFERASE 10 U/L (0-55); ALKALINE PHOSPHATASE 90 U/L (40-136); BILIRUBIN,TOTAL 0.6 MG/DL (0.1-1.0); BUN/CREATININE RATIO 16; CALCIUM 8.7 MG/DL (8.5-10.1); CARBON DIOXIDE 27 MMOL/L (21-32); CHLORIDE 107 MMOL/L (98-107); CREATININE SERUM 0.81 MG/DL (0.60-1.30); GFR ESTIMATED > 60; GLUCOSE 94 MG/DL (70-105); POTASSIUM 4.1 MMOL/L (3.6-5.0); SODIUM 143 MMOL/L (135-145)
--- NOTE | 2018-10-27 16:39 | ED General ---
General Chief Complaint: General Problems/Pain Stated Complaint: SENT FROM [facility] LOW HEMOGLOBIN Nursing Triage Note: PT AMB TO RM 5 WITH COMPLAINT OF LOW HGB. STATES SHE WAS SENT HERE BY [facility] [place]. STATES THEY DID NOT TELL HER WHAT THE ACTUAL NUMBER WAS, BUT LOW ENOUGH TO WHERE SHE COULD POSSIBLY NEED BLOOD. PT STATES SHE HAS BEEN INCREASINGLY SOA. Nursing Sepsis Screen: No Definite Risk Source of Information: Patient Exam Limitations: No Limitations History of Present Illness Date Seen by Provider: Oct 27, 2018 Time Seen by Provider: 15:46 Initial Comments 62-year-old female who presents to the emergency room with complaints of low hemoglobin. She reports that she had routine lab work drawn last week and was called this morning by [facility] [place] and was told to go to the emergency room. She is unsure of what her hemoglobin level was but they did inform her that she possibly needs blood. Her only complaint has increasing shortness of breath for the past 2 days. She reports that 2 weeks ago she did have one episode of coffee-ground emesis but has not had any symptoms since. She denies noticing blood in her stool. Timing/Duration: 1-2 Days Associated Systoms: Denies Symptoms Allergies and Home Medications Allergies Coded Allergies: No Known Drug Allergies (Unverified , 01/17/16) Home Medications Furosemide 20 Mg Tablet, 20 MG PO DAILY, (Reported) Hydrocodone Bit/Acetaminophen 1 Each Tablet, 1 EACH PO Q4H PRN for PAIN-MODERATE TO SEVERE Prescribed by: ABI OLIVERA on 01/31/17 3934 Lisinopril 40 Mg Tablet, 20 MG PO DAILY, (Reported) take 1/2 of 40mg tab Naproxen 500 Mg Tablet.dr, 500 MG PO BID PRN for joint pain, (Reported) Patient Home Medication List Home Medication List Reviewed: Yes Review of Systems Review of Systems Constitutional: see HPI; No chills, No fever Respiratory: see HPI, dyspnea on exertion All Other Systems Reviewed Negative Unless Noted: Yes Past Gcmracs-Pagehc-Tehhcz Hx Past Med/Social Hx: Reviewed Nursing Past Med/Soc Hx Patient Social History Alcohol Use: Rarely Uses Recreational Drug Use: No Smoking Status: Never a Smoker 2nd Hand Smoke Exposure: Yes Recent Foreign Travel: No Contact w/Someone Who Travel: No Recent Infectious Disease Expo: No Recent Hopitalizations: No Physical Abuse: No Sexual Abuse: No Mistreated: No Fear: No Immunizations Up To Date Tetanus Booster (TDap): Unknown Seasonal Allergies Seasonal Allergies: No Past Medical History Surgeries: Yes (RIGHT FOOT, RIGHT WRIST, l knee scope, ) Orthopedic Respiratory: No Cardiac: Yes Hypertension Neurological: No Genitourinary: No Gastrointestinal: Yes (rectal bleeding) Gastroesophageal Reflux, Chronic Diarrhea Musculoskeletal: Yes Arthritis Endocrine: No HEENT: No Cancer: No Psychosocial: Yes Sleep Difficulties, Anxiety Integumentary: No Blood Disorders: No Family Medical History Reviewed Nursing Family Hx Physical Exam Vital Signs Vital Signs - First Documented 10/27/18 15:40 Temp 37.5 Pulse 78 Resp 16 B/P (MAP) 138/78 Pulse Ox 99 O2 Delivery Room Air Capillary Refill : Less Than 3 Seconds Height, Weight, BMI Height: 5'2.00" Weight: 240lbs. 0.0oz. [id number]; 47.00 BMI Method:Stated General Appearance: No Apparent Distress, WD/WN Eyes: Bilateral Eye Conjunctivae Pale HEENT: PERRL/EOMI, TMs Normal, Normal ENT Inspection, Pharynx Normal, Pale Conjunctivae (L), Pale Conjunctivae (R) Respiratory: Chest Non Tender, Lungs Clear, Normal Breath Sounds, No Accessory Muscle Use, No Respiratory Distress Cardiovascular: Regular Rate, Rhythm, No Edema, No Gallop, No JVD, No Murmur, Normal Peripheral Pulses Gastrointestinal: Normal Bowel Sounds, No Organomegaly, No Pulsatile Mass, Non Tender, Soft Rectal: Normal Rectal Tone, Heme Positive Stool Extremity: Normal Capillary Refill, Normal Inspection, Normal Range of Motion, Non Tender, No Calf Tenderness, No Pedal Edema Neurologic/Psychiatric: Alert, Oriented x3, Normal Mood/Affect Skin: Normal Color, Warm/Dry Progress/Results/Core Measures Suspected Sepsis Recent Fever Within 48 Hours: No Infection Criteria Present: None New/Unexplained Altered Menta: No Sepsis Screen: No Definite Risk SIRS Temperature: Pulse: 78 Respiratory Rate: 16 Laboratory Tests 10/27/18 15:45: White Blood Count 9.4 Blood Pressure 138 /78 Mean: 98 Laboratory Tests 10/27/18 15:45: Creatinine 0.81, Platelet Count 306, Total Bilirubin 0.6 Results/Orders Lab Results Laboratory Tests Test 10/27/18 15:45 10/27/18 15:56 Range/Units White Blood Count 9.4 4.3-11.0 10^3/uL Red Blood Count 2.34 L 4.35-5.85 10^6/uL Hemoglobin 4.8 *L 11.5-16.0 G/DL Hematocrit 19 *L 35-52 % Mean Corpuscular Volume 82 80-99 FL Mean Corpuscular Hemoglobin 21 L 25-34 PG Mean Corpuscular Hemoglobin Concent 25 L 32-36 G/DL Red Cell Distribution Width 18.3 H 10.0-14.5 % Platelet Count 306 130-400 10^3/uL Mean Platelet Volume 9.4 7.4-10.4 FL Neutrophils (%) (Auto) 77 H 42-75 % Lymphocytes (%) (Auto) 16 12-44 % Monocytes (%) (Auto) 7 0-12 % Eosinophils (%) (Auto) 1 0-10 % Basophils (%) (Auto) 0 0-10 % Neutrophils # (Auto) 7.2 1.8-7.8 X 10^3 Lymphocytes # (Auto) 1.5 1.0-4.0 X 10^3 Monocytes # (Auto) 0.6 0.0-1.0 X 10^3 Eosinophils # (Auto) 0.1 0.0-0.3 10^3/uL Basophils # (Auto) 0.0 0.0-0.1 10^3/uL Sodium Level 143 135-145 MMOL/L Potassium Level 4.1 3.6-5.0 MMOL/L Chloride Level 107 98-107 MMOL/L Carbon Dioxide Level 27 21-32 MMOL/L Anion Gap 9 5-14 MMOL/L Blood Urea Nitrogen 13 7-18 MG/DL Creatinine 0.81 0.60-1.30 MG/DL Estimat Glomerular Filtration Rate > 60 BUN/Creatinine Ratio 16 Glucose Level 94 70-105 MG/DL Calcium Level 8.7 8.5-10.1 MG/DL Corrected Calcium 8.7 8.5-10.1 MG/DL Total Bilirubin 0.6 0.1-1.0 MG/DL Aspartate Amino Transf (AST/SGOT) 18 5-34 U/L Alanine Aminotransferase (ALT/SGPT) 10 0-55 U/L Alkaline Phosphatase 90 40-136 U/L Total Protein 7.0 6.4-8.2 GM/DL Albumin 4.0 3.2-4.5 GM/DL Urine Color YELLOW Urine Clarity CLEAR Urine pH 7 5-9 Urine Specific [place] 1.010 L 1.016-1.022 Urine Protein NEGATIVE NEGATIVE Urine Glucose (UA) NEGATIVE NEGATIVE Urine Ketones NEGATIVE NEGATIVE Urine Nitrite NEGATIVE NEGATIVE Urine Bilirubin NEGATIVE NEGATIVE Urine Urobilinogen NORMAL NORMAL MG/DL Urine Leukocyte Esterase NEGATIVE NEGATIVE Urine RBC (Auto) NEGATIVE NEGATIVE Urine RBC NONE /HPF Urine WBC NONE /HPF Urine Squamous Epithelial Cells 0-2 /HPF Urine Crystals NONE /LPF Urine Bacteria NEGATIVE /HPF Urine Casts NONE /LPF Urine Mucus NEGATIVE /LPF Urine Culture Indicated NO My Orders Orders - JIM MCDANIEL Ed Iv/Invasive Line Start (10/27/18 15:45) Cbc With Automated Diff (10/27/18 15:45) Comprehensive Metabolic Panel (10/27/18 15:45) Type And Screen (10/27/18 15:48) Ua Culture If Indicated (10/27/18 15:55) Iron Tibc %Sat & Ferritin (10/27/18 16:31) Red Cells Leukocytes Reduced (10/27/18 16:31) Vital Signs/I&O 10/27/18 10/27/18 10/27/18 10/27/18 15:40 17:29 18:03 18:03 Temp 37.5 37.57917 Pulse 78 72 81 Resp 16 16 20 B/P (MAP) 138/78 149/69 161/81 Pulse Ox 99 96 98 98 O2 Delivery Room Air Room Air Room Air Room Air 10/27/18 10/27/18 18:26 18:45 Temp 37.0 36.8 Pulse 81 69 Resp 20 18 B/P (MAP) 161/81 155/74 Pulse Ox 98 95 O2 Delivery Room Air Room Air Capillary Refill : Less Than 3 Seconds Blood Pressure Mean: 98 Departure Communication (Admissions) Time/Spoke to Admitting Phy: 16:30 Dr. Lopez, recommended admitting patient to the floor transfusing 2 units of PRBCs and repeating H&H the morning. Consult to Dr. Varghese. Impression Primary Impression: Anemia Additional Impression: Rectal bleed Disposition: 01 HOME, SELF-CARE Condition: Stable/Unchanged Admissions Decision to Admit Reason: Admit from ER (General) Decision to Admit/Date: Oct 27, 2018 Time/Decision to Admit Time: 16:38 Departure-Patient Inst. Referrals: [facility] (PCP) Primary Care Physician MELISSA CORLEY (Family) Primary Care Physician JIM MCDANIEL Oct 27, 2018 16:39
--- NOTE | 2018-10-27 18:03 | NUR ---
GABRIELE MCDOWELL admitted to room CU7-1, with an admitting diagnosis of ANEMIA, RECTAL BLEED, on 10/27/18 from ER via , accompanied by STAFF/FAMILY.GABRIELE MCDOWELL introduced to surroundings, call light, bed controls, phone, TV, temperature control, lights, meal times, smoking policy, visitor policy, side rail policy, bathrooms and showers. Patient Rights given to patient in the handbook. GABRIELE MCDOWELL verbalizes understanding that [facility] is not responsible for the loss or damage to any personal effects or valuables that are kept in the patients posession during their hospitalization. The following Patient Care Plans were discussed with the PT: Discharge Planning, KNOWLEDGE DEFICIT,ANXIETY, and IMPAIRED GAS EXCHANGE. GABRIELE MCDOWELL verbalizes understanding of Interdisciplinary Patient Education. Patient and family were informed about the Rapid Response Team and its purpose.
[2018-10-27] MEDS ORDERED: NS IV 500 ML 500 ML IV SCH (18:15)
[2018-10-27] MEDS ORDERED: NS IV 500 ML 500 ML IV ONE (18:15)
[2018-10-27] MEDS ORDERED: CATHETER FLUSH 10 ML SYR IV PRN (18:15)
--- NOTE | 2018-10-27 18:40 | NUR ---
DR PULLIAM NOTIFIED OF CONSULT.
--- NOTE | 2018-10-27 21:26 | History & Physical ---
HPI History of Present Illness: 62 yo F that presented to ER with profound anemia after being called by PCP. States that she had labs last week and was told that her hgb was in the 4's and that she needed to come into the ER for evaluation. States that she had rectal bleeding 2 years ago and at that time she had colonoscopy and EGD that were normal. Denies any rectal bleeding or blood in her urine. States that she coughed up black last week but didn't think anything of it. States that she has been feeling more short of breath over the last few weeks and states that she has had some weight gain over the last few months. Denies any CAD or COPD. h/o HTN that is well controlled on PO medications. Denies any vaginal bleeding. Source: patient, spouse Exam Limitations: no limitations Date seen by provider: Oct 27, 2018 Time Seen by Provider: 21:24 Attending Physician Johnna Lopez MD [facility]CP [facility] [facility] Date of Admission Oct 27, 2018 at 16:37 Home Medications Home Medications Reviewed patient Home Medication Reconciliation performed by pharmacy medication reconciliations utility technician and/or nursing. Patients Allergies have been reviewed. Allergies Coded Allergies: No Known Drug Allergies (Unverified , 01/17/16) AGX-Ejfgrn-Jrtuxx Hx Patient Social History Living Status: Lives at home with spouse Alcohol Use: Rarely Uses Recreational Drug Use: No Smoking Status: Never a Smoker 2nd Hand Smoke Exposure: Yes Recent Foreign Travel: No Contact w/other who traveled: No Recent Hopitalizations: No Recent Infectious Disease Expo: No Immunizations Up To Date Tetanus Booster (TDap): Unknown Past Medical History HTN Chronic Pain Family Medical History Significant Family History: No Pertinent Family Hx Family History: Cardiovascular disease 19 MOTHER Neoplasm 19 FATHER Review of Systems ([facility]) Constitutional: No chills, No dizziness, No fever; malaise EENTM: no symptoms reported; No mouth pain, No mouth swelling, No nose congestion, No nose pain, No throat pain, No throat swelling Respiratory: dyspnea on exertion, hemoptysis Cardiovascular: no symptoms reported; No chest pain, No edema, No palpitations Gastrointestinal: No abdominal pain, No constipation; diarrhea; No loss of appetite, No melena, No nausea, No vomiting Genitourinary: no symptoms reported; No dysuria, No frequency, No hematuria : No Musculoskeletal: back pain (chronic), joint pain (knee pain) Skin: no symptoms reported; No lesions, No rash Psychiatric/Neurological: No Symptoms Reported Reviewed Test Results Reviewed Test Results Lab Laboratory Tests Test 10/27/18 15:45 10/27/18 15:56 Range/Units White Blood Count 9.4 4.3-11.0 10^3/uL Red Blood Count 2.34 L 4.35-5.85 10^6/uL Hemoglobin 4.8 *L 11.5-16.0 G/DL Hematocrit 19 *L 35-52 % Mean Corpuscular Volume 82 80-99 FL Mean Corpuscular Hemoglobin 21 L 25-34 PG Mean Corpuscular Hemoglobin Concent 25 L 32-36 G/DL Red Cell Distribution Width 18.3 H 10.0-14.5 % Platelet Count 306 130-400 10^3/uL Mean Platelet Volume 9.4 7.4-10.4 FL Neutrophils (%) (Auto) 77 H 42-75 % Lymphocytes (%) (Auto) 16 12-44 % Monocytes (%) (Auto) 7 0-12 % Eosinophils (%) (Auto) 1 0-10 % Basophils (%) (Auto) 0 0-10 % Neutrophils # (Auto) 7.2 1.8-7.8 X 10^3 Lymphocytes # (Auto) 1.5 1.0-4.0 X 10^3 Monocytes # (Auto) 0.6 0.0-1.0 X 10^3 Eosinophils # (Auto) 0.1 0.0-0.3 10^3/uL Basophils # (Auto) 0.0 0.0-0.1 10^3/uL Sodium Level 143 135-145 MMOL/L Potassium Level 4.1 3.6-5.0 MMOL/L Chloride Level 107 98-107 MMOL/L Carbon Dioxide Level 27 21-32 MMOL/L Anion Gap 9 5-14 MMOL/L Blood Urea Nitrogen 13 7-18 MG/DL Creatinine 0.81 0.60-1.30 MG/DL Estimat Glomerular Filtration Rate > 60 BUN/Creatinine Ratio 16 Glucose Level 94 70-105 MG/DL Calcium Level 8.7 8.5-10.1 MG/DL Corrected Calcium 8.7 8.5-10.1 MG/DL Total Bilirubin 0.6 0.1-1.0 MG/DL Aspartate Amino Transf (AST/SGOT) 18 5-34 U/L Alanine Aminotransferase (ALT/SGPT) 10 0-55 U/L Alkaline Phosphatase 90 40-136 U/L Total Protein 7.0 6.4-8.2 GM/DL Albumin 4.0 3.2-4.5 GM/DL Urine Color YELLOW Urine Clarity CLEAR Urine pH 7 5-9 Urine Specific [place] 1.010 L 1.016-1.022 Urine Protein NEGATIVE NEGATIVE Urine Glucose (UA) NEGATIVE NEGATIVE Urine Ketones NEGATIVE NEGATIVE Urine Nitrite NEGATIVE NEGATIVE Urine Bilirubin NEGATIVE NEGATIVE Urine Urobilinogen NORMAL NORMAL MG/DL Urine Leukocyte Esterase NEGATIVE NEGATIVE Urine RBC (Auto) NEGATIVE NEGATIVE Urine RBC NONE /HPF Urine WBC NONE /HPF Urine Squamous Epithelial Cells 0-2 /HPF Urine Crystals NONE /LPF Urine Bacteria NEGATIVE /HPF Urine Casts NONE /LPF Urine Mucus NEGATIVE /LPF Urine Culture Indicated NO Physical Exam-(CHC) Physical Exam Vital Signs VS - Last 72 Hours, by Label 10/27/18 10/27/18 10/27/18 10/27/18 15:40 17:29 18:03 18:03 Temp 37.5 37.73483 Pulse 78 72 81 Resp 16 16 20 B/P (MAP) 138/78 149/69 161/81 Pulse Ox 99 96 98 98 O2 Delivery Room Air Room Air Room Air Room Air 10/27/18 10/27/18 10/27/18 18:26 18:45 21:18 Temp 37.0 36.8 37.0 Pulse 81 69 76 Resp 20 18 20 B/P (MAP) 161/81 155/74 148/57 Pulse Ox 98 95 96 O2 Delivery Room Air Room Air Room Air Capillary Refill : Less Than 3 Seconds General Appearance: WD/WN, no apparent distress, obese Neck: non-tender, full range of motion, supple Respiratory: chest non-tender, lungs clear, normal breath sounds, no respiratory distress, no accessory muscle use Cardiovascular: normal peripheral pulses, regular rate, rhythm, no edema, no murmur Gastrointestinal: normal bowel sounds, non tender, soft, no organomegaly Back: no CVA tenderness, no vertebral tenderness Extremities: normal range of motion, non-tender, normal inspection, no pedal edema, no calf tenderness, normal capillary refill Neurologic/Psychiatric: parts cleaner II-XII nml as tested, no motor/sensory deficits, alert, normal mood/affect, oriented x 3 Skin: normal color, warm/dry Lymphatic: no adenopathy Assessment/Plan Assessment/Plan Admission Status: Inpatient Order (span 2 midnights) Reason for Inpatient Admission: Patient requires blood transfusion and surgical consultation (1) Anemia due to acute blood loss Status: Acute Assessment & Plan: - Normal UA, no hematuria, + hemoccult, consult to surgery, pRBCs x 2 units ordered, repeat H/H in AM, Iron panel pending (2) HTN (hypertension) Status: Chronic Assessment & Plan: - Hold home meds due to anemia Qualifiers: Qualified Codes: I10 - Essential (primary) hypertension (3) Obesity Status: Chronic Qualifiers: (4) DVT prophylaxis Status: Acute Assessment & Plan: - SCDs due to anemia, will re evaluate once anemia improved Clinical Quality Measures DVT/VTE Risk/Contraindication: Risk Factor Score Per Nursin RFS Level Per Nursing on Admit: 4+=Very High Contraindications-Mechi: Other *list below* Other: ANEMIA Copy Copies To 1: Joselito JACKSON HOLLY R MD Oct 27, 2018 21:26
[2018-10-27] MEDS: CATHETER FLUSH 10 ML SYR IV SCH (23:20)
[2018-10-27] MEDS: PANTOPRAZOLE 40 MG (PROTONIX) VIAL IV SCH (23:58)
[2018-10-28] VITALS (11 sets, daily range): BP systolic 105–191; BP diastolic 67–82
[2018-10-28] MEDS ORDERED: ZOLPIDEM 5 MG (AMBIEN) TAB PO ONE (00:15)
[2018-10-28 03:31] LABS: BASOPHILS % (AUTO) 0 % (0-10); EOSINOPHILS # (AUTO) 0.1 10^3/uL (0.0-0.3); EOSINOPHILS % (AUTO) 1 % (0-10); HEMATOCRIT 23 % (35-52); LYMPHOCYTES # (AUTO) 1.6 X 10^3 (1.0-4.0); LYMPHOCYTES % (AUTO) 19 % (12-44); MEAN CORPUSCULAR HEMOGLOBIN 21 PG (25-34); MEAN CORPUSCULAR HGB CONC 27 G/DL (32-36); MEAN CORPUSCULAR VOLUME 80 FL (80-99); MEAN PLATELET VOLUME 9.3 FL (7.4-10.4); MONOCYTES # (AUTO) 0.7 X 10^3 (0.0-1.0); MONOCYTES % (AUTO) 9 % (0-12); NEUTROPHILS # (AUTO) 5.7 X 10^3 (1.8-7.8); NEUTROPHILS % (AUTO) 71 % (42-75); PLATELET COUNT 257 10^3/uL (130-400); RED CELL DISTRIBUTION WIDTH 19.7 % (10.0-14.5); WHITE BLOOD COUNT 8.1 10^3/uL (4.3-11.0)
[2018-10-28 03:56] LABS: ALANINE AMINOTRANSFERASE 13 U/L (0-55); ALBUMIN 3.6 GM/DL (3.2-4.5); ALKALINE PHOSPHATASE 95 U/L (40-136); BILIRUBIN,TOTAL 2.3 MG/DL (0.1-1.0); BUN/CREATININE RATIO 13; CALCIUM 8.6 MG/DL (8.5-10.1); CARBON DIOXIDE 27 MMOL/L (21-32); CHLORIDE 108 MMOL/L (98-107); CREATININE SERUM 0.75 MG/DL (0.60-1.30); GFR ESTIMATED > 60; GLUCOSE 90 MG/DL (70-105); POTASSIUM 4.3 MMOL/L (3.6-5.0); SODIUM 143 MMOL/L (135-145); TOTAL PROTEIN 6.4 GM/DL (6.4-8.2)
[2018-10-28] MEDS: CATHETER FLUSH 10 ML SYR IV SCH ×3 (06:22→22:35)
[2018-10-28] MEDS: PANTOPRAZOLE 40 MG (PROTONIX) VIAL IV SCH (08:01)
[2018-10-28] MEDS ORDERED: OMEP20TA33 PO (10:58)
[2018-10-28] MEDS ORDERED: RT-ALBUINH IH (10:58)
[2018-10-28] MEDS ORDERED: MAGN400T39 PO (10:58)
[2018-10-28] MEDS ORDERED: MELA5CAP PO (10:58)
[2018-10-28] MEDS ORDERED: BUDE10.2 IH (10:58)
[2018-10-28] MEDS ORDERED: FLUO60TA PO (10:58)
[2018-10-28] MEDS ORDERED: DICY20TA10 PO (10:58)
[2018-10-28] MEDS ORDERED: LOPE-134 PO (10:58)
[2018-10-28] MEDS ORDERED: HYDR-3812 PO (10:58)
[2018-10-28] MEDS ORDERED: DIPH-639 PO (10:58)
[2018-10-28] MEDS ORDERED: IBUP-1780 PO (10:58)
--- NOTE | 2018-10-28 11:05 | NUR ---
Pastoral care visit.
--- NOTE | 2018-10-28 11:10 | NUR ---
CALLED DUSTIN SANDOVAL FOR A LIST OF RECENTLY FILLED MEDICATIONS. I WENT OVER THAT LIST WITH THE PATIENT. DUSTIN FILLED: 10-23-18 IBU 800MG TID #90 10-23-18 FUROSEMIDE 20MG DAILY #90 09-10-18 LISINOPRIL 40MG 1/2 DAILY #30 09-08-18 PERIDEX (NO LONGER USING) 09-08-18 MAGIC MOUTHWASH (NO LONGER USING) 07-15-18 SYMBICORT 160 #1 (STATES WAS NOT USING REGULARLY UNTIL RECENTLY) 07-15-18 PROAIR INHALER NEEDED 07-15-18 FLUOXETINE 60MG #30 (TAKES NEEDED) 07-15-18 DICYCLOMINE 20MG #120 (TAKES PRN) 07-15-18 HYDROCODONE 5-325 #50 (TAKES PRN) SHE ALSO TAKES THE FOLLOWING OTC: OTC SLEEP AID NEEDED (TAKES DIFFERENT ONES ALL THE TIME IN ADDITION TO MELATONIN) IMODIUM 5 TABS ONCE OR TWICE DAILY MAGNESIUM HS MELATONIN HS PRILOSEC OTC PRN
[2018-10-28] MEDS: ACETAMINOPHEN 500 MG TAB (TYLENOL) PO PRN (12:40)
--- NOTE | 2018-10-28 12:51 | NUR ---
PT C/O HEADACHE, PRN TYLENOL GIVEN PER DR ORDERS. SEE EMAR FOR DETAILS.
--- NOTE | 2018-10-28 14:45 | NUR ---
transferred to Med Surg. this RN took over care
--- NOTE | 2018-10-28 14:45 | NUR ---
PT TRANSFERRED TO ROOM 419 VIA W/ STAFF/PERSONAL BELONGINGS. REPORT GIVEN TO ANTHONY LUU WHO ASSUMES CARE OF PT. NO QUESTIONS/CONCERNS VOICED.
[2018-10-28] MEDS ORDERED: GOLYTELY POWDER 4000 ML BTL PO NR (16:00)
--- NOTE | 2018-10-28 16:02 | NUR ---
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 Offered active listening and prayer with the pt and her daughter, Alberta. The family is Evangelical and shared belief in God's mercy and his ability to heal. They also shared their appreciation for the kindness and compassion of staff in ICU and 4th floor.
--- NOTE | 2018-10-28 16:09 | Consultation - Surgery ---
MIMIOrtizSTEFFANIE COLLIER, 10/28/18 1609: History of Present Illness History of Present Illness Patient Consulted On(gonzales/time) 10/28/18 15:59 Date Seen by Provider: Oct 28, 2018 Time Seen by Provider: 11:54 History of Present Illness General surgery consulted regarding; anemia, melena, hematemesis. HPI: Pt is complaining of little dark BM that have happened 1-2x/week for 2 years. Confirms diarrhea, but denies abdominal pain. The diarrhea and blood in her stool has stayed the same. Eating makes the diarrhea worse. Pt confirms occasional nausea currently along with vomiting 1 week ago. Pt states she vomited blood, but has not had another occurrence since. Pt denies constipation. Has been having heartburn lately but cannot state an exact trigger. Currently is unable to eat anything without causing more diarrhea. Only confirms eating Cheetos without having increased diarrhea. Pt was being worked up for SOB by PCP and had labs performed. PCP was unable to reach her regarding CBC results and finally got ahold of her yesterday to let her know that her Hg was 4.8. She came in for blood transfusions. 2 transfusions have happened thus far and her current Hg is 6. Pt stated she had a colonoscopy and EGD 2 years ago and both were normal. Allergies and Home Medications Allergies Coded Allergies: amoxicillin (Verified Allergy, Unknown, 10/28/18) clavulanic acid (Verified Allergy, Unknown, 10/28/18) Home Medications Albuterol Sulfate 1 Puff Puff, 2 PUFF IH Q4H PRN for SHORTNESS OF BREATH, (Reported) 1 PUFF = 90 MCG Budesonide/Formoterol Fumarate 10.2 Gm Hfa.aer.ad, 2 PUFF IH BID, (Reported) LAST FILLED #1 07-15-18 Dicyclomine HCl 20 Mg Tablet, 20 MG PO QID PRN for STOMACH UPSET, (Reported) Diphenhydramine HCl 25 Mg Capsule, 25 MG PO HS PRN for SLEEP, (Reported) Fluoxetine HCl 60 Mg Tablet, 60 MG PO DAILY PRN for NERVES, (Reported) LAST FILLED #30 07-15-18 Furosemide 20 Mg Tablet, 20 MG PO DAILY, (Reported) Hydrocodone/Acetaminophen 1 Each Tablet, 1 TAB PO TID PRN for PAIN-MODERATE, (Reported) LAST FILLED #50 5-28-19 Ibuprofen 800 Mg Tablet, 800 MG PO TID PRN for PAIN-MILD, (Reported) Lisinopril 40 Mg Tablet, 20 MG PO DAILY, (Reported) TAKES 1/2 (40MG) TABLET Loperamide HCl 2 Mg Tablet, 10 MG PO BID PRN for DIARRHEA, (Reported) Magnesium Oxide 400 Mg Tablet, 400 MG PO HS, (Reported) Melatonin 5 Mg Capsule, 5 MG PO HS, (Reported) Omeprazole Magnesium 20 Mg Tablet.dr, 20 MG PO DAILY PRN for HEARTBURN, (Reported) Patient Home Medication List Home Medication List Reviewed: Yes Past Mihxlwo-Quosdx-Jircce Hx Patient Social History Alcohol Use: Rarely Uses Recreational Drug Use: No Smoking Status: Never a Smoker 2nd Hand Smoke Exposure: Yes Recent Foreign Travel: No Contact w/Someone Who Travel: No Recent Infectious Disease Expo: No Recent Hopitalizations: No Immunizations Up To Date Tetanus Booster (TDap): Unknown Seasonal Allergies Seasonal Allergies: No Surgeries History of Surgeries: Yes (RIGHT FOOT, RIGHT WRIST, l knee scope, ) Surgeries: Orthopedic (R arm, R foot) Respiratory History of Respiratory Disorde: Yes (Pt unsure of dx) Cardiovascular History of Cardiac Disorders: Yes Cardiac Disorders: Hypertension Neurological History of Neurological Disord: No Reproductive System : No Genitourinary History of Genitourinary Disor: No Gastrointestinal History of Gastrointestinal Di: Yes (rectal bleeding) Gastrointestinal Disorders: Gastroesophageal Reflux, Chronic Diarrhea Musculoskeletal History of Musculoskeletal Dis: Yes Musculoskeletal Disorders: Arthritis Endocrine History of Endocrine Disorders: No HEENT History of HEENT Disorders: No Cancer History of Cancer: No Psychosocial History of Psychiatric Problem: Yes Behavioral Health Disorders: Sleep Difficulties, Anxiety, Depression Integumentary History of Skin or Integumenta: No Blood Transfusions History of Blood Disorders: No Hx of Blood Transfusion Blood given for anemia 10/27/18 Family Medical History Significant Family History: Heart Disease (mother), Cancer (Pt states father has cancer from scleroderma) Family Medial History: Cardiovascular disease 19 MOTHER Neoplasm 19 FATHER Review of Systems-General Constitutional: No chills, No fever; weight gain (30# in 6 mo) EENTM: vision loss, other (face/mouth infection, magic mouthwash helped) Respiratory: No cough; short of breath (cannot walk from 1 room to another, cannot do stairs) Cardiovascular: No chest pain, No palpitations Gastrointestinal: No abdominal pain; diarrhea ( ), dysphagia, hematemesis, loss of appetite, melena, nausea, vomiting Genitourinary: No dysuria, No hematuria; incontinence : No Musculoskeletal: back pain, muscle weakness Skin: No lesions, No rash; other (bruises) Psychiatric/Neurological: Anxiety, Depressed; Denies Numbness; Tingling (occasionally in L hand) Physical Exam-General Problems Physical Exam Vital Signs Vital Signs - First Documented 10/27/18 15:40 Temp 37.5 Pulse 78 Resp 16 B/P (MAP) 138/78 Pulse Ox 99 O2 Delivery Room Air Capillary Refill : Less Than 3 Seconds General Appearance: WD/WN, no apparent distress Eyes: Bilateral Eye PERRL, Bilateral Eye EOMI HEENT: normal ENT inspection, pharynx normal Neck: full range of motion, normal inspection Respiratory: chest non-tender, lungs clear, normal breath sounds, no respiratory distress, no accessory muscle use Cardiovascular: regular rate, rhythm, no murmur Gastrointestinal: normal bowel sounds; No guarding, No rebound, No tenderness Rectal: deferred Extremities: normal inspection, pedal edema (1+ pitting edema bilateral LE) Neurologic/Psychiatric: alert, normal mood/affect, oriented x 3 Skin: normal color, warm/dry Lymphatic: no adenopathy Data Review Labs Laboratory Tests 10/28/18 03:07: White Blood Count 8.1, Red Blood Count 2.84L, Hemoglobin 6.0#*L, Hematocrit 23L, Mean Corpuscular Volume 80, Mean Corpuscular Hemoglobin 21L, Mean Corpuscular Hemoglobin Concent 27L, Red Cell Distribution Width 19.7H, Platelet Count 257, Mean Platelet Volume 9.3, Neutrophils (%) (Auto) 71, Lymphocytes (%) (Auto) 19, Monocytes (%) (Auto) 9, Eosinophils (%) (Auto) 1, Basophils (%) (Auto) 0, Neutrophils # (Auto) 5.7, Lymphocytes # (Auto) 1.6, Monocytes # (Auto) 0.7, Eosinophils # (Auto) 0.1, Basophils # (Auto) 0.0, Sodium Level 143, Potassium Level 4.3, Chloride Level 108H, Carbon Dioxide Level 27, Anion Gap 8, Blood Urea Nitrogen 10, Creatinine 0.75, Estimat Glomerular Filtration Rate > 60, BUN/Creatinine Ratio 13, Glucose Level 90, Calcium Level 8.6, Corrected Calcium 8.9, Total Bilirubin 2.3H, Aspartate Amino Transf (AST/SGOT) 18, Alanine Aminotransferase (ALT/SGPT) 13, Alkaline Phosphatase 95, Total Protein 6.4, Albumin 3.6 10/28/18 11:24: Lab Scanned Report Transfusion Reaction Form Assessment/Plan Assessment/Plan Assessment/Plan Anemia Melena Hematochezia Chronic diarrhea Plan is to perform EGD and colonoscopy tomorrow. Begin prep for colonoscopy today with clear liquids. Continue with blood transfusions for anemia if necessary. Update CBC for current Hg value. Pt counselled on improving diet by adding fiber and nutritious choices and decreasing fatty/greasy foods. Clinical Quality Measures DVT/VTE Risk/Contraindication: Risk Factor Score Per Nursin RFS Level Per Nursing on Admit: 4+=Very High Contraindications-Mechi: Other *list below* Other: ANEMIA JEANNIE VARGHESE DO 10/28/18 1702: History of Present Illness History of Present Illness Time Seen by Provider: 13:01 History of Present Illness Pt actually had the exact same symptoms appx 2 yrs ago and I did an EGD/Colon at that time; found blood in stomach but no ulcers and a bleeding ulcer in colon. Pt main complaint is of weakness. She is very scared about the bleeding and worried about cancer. Allergies and Home Medications Allergies Coded Allergies: amoxicillin (Verified Allergy, Unknown, 10/28/18) clavulanic acid (Verified Allergy, Unknown, 10/28/18) Home Medications Albuterol Sulfate 1 Puff Puff, 2 PUFF IH Q4H PRN for SHORTNESS OF BREATH, (Reported) 1 PUFF = 90 MCG Budesonide/Formoterol Fumarate 10.2 Gm Hfa.aer.ad, 2 PUFF IH BID, (Reported) LAST FILLED #1 07-15-18 Dicyclomine HCl 20 Mg Tablet, 20 MG PO QID PRN for STOMACH UPSET, (Reported) Diphenhydramine HCl 25 Mg Capsule, 25 MG PO HS PRN for SLEEP, (Reported) Fluoxetine HCl 60 Mg Tablet, 60 MG PO DAILY PRN for NERVES, (Reported) LAST FILLED #30 07-15-18 Furosemide 20 Mg Tablet, 20 MG PO DAILY, (Reported) Hydrocodone/Acetaminophen 1 Each Tablet, 1 TAB PO TID PRN for PAIN-MODERATE, (Reported) LAST FILLED #50 5-28-19 Ibuprofen 800 Mg Tablet, 800 MG PO TID PRN for PAIN-MILD, (Reported) Lisinopril 40 Mg Tablet, 20 MG PO DAILY, (Reported) TAKES 1/2 (40MG) TABLET Loperamide HCl 2 Mg Tablet, 10 MG PO BID PRN for DIARRHEA, (Reported) Magnesium Oxide 400 Mg Tablet, 400 MG PO HS, (Reported) Melatonin 5 Mg Capsule, 5 MG PO HS, (Reported) Omeprazole Magnesium 20 Mg Tablet.dr, 20 MG PO DAILY PRN for HEARTBURN, (Reported) Past Yxtjkou-Dyazob-Qhmroj Hx Family Medical History Family Medial History: Cardiovascular disease 19 MOTHER Neoplasm 19 FATHER Review of Systems-General Other pt denies any hx of abnormal bruising or bleeding. Physical Exam-General Problems Physical Exam General Appearance: mild distress Lymphatic: no adenopathy (neck, axilla or groin) Assessment/Plan Assessment/Plan Assessment/Plan Pt may need CT abd/pelvis. Discussed risks and complications of procedure; not limited to pain, bleeding, infection and even intestinal perforation. Supervisory-Addendum Brief Verification & Attestation Participated in pt care: history, MDM, physical Personally performed: exam, history, MDM Care discussed with: Medical Student Procedures: n/a Verification and Attestation of Medical Student E/M Service A medical student performed and documented this service in my presence. I reviewed and verified all information documented by the medical student and made modifications to such information, when appropriate. I personally performed the physical exam and medical decision making. Jeannie Varghese, Oct 28, 2018,17:02 STEFFANIE PECK, Oct 28, 2018 16:09 JEANNIE VARGHESE DO Oct 28, 2018 17:02
--- NOTE | 2018-10-28 18:13 | Progress Note ---
Subjective Subjective/Events-last exam Patient feeling better this AM since getting pRBCs. Denies any chest pain. + Shortness of breath with activity which seems to be at baseline. Denies any blood in stool. NPO for procedure. Review of Systems Pulmonary: Dyspnea; No Cough Cardiovascular: No: Chest Pain, Palpitations Gastrointestinal: Diarrhea; No: Nausea, Vomiting, Abdominal Pain, Constipation Neurological: Weakness Objective Exam Last Set of Vital Signs Vital Signs Date Time Temp Pulse Resp B/P (MAP) Pulse Ox O2 Delivery O2 Flow Rate FiO2 10/28/18 17:45 36.9 66 18 191/82 95 Room Air Capillary Refill : Less Than 3 Seconds I&O Intake and Output 10/28/18 00:00 Intake Total 100 ml Balance 100 ml Intake Oral 100 ml # Voids 1 Daily Weight Change No No General: Alert, Oriented X3, Cooperative, No Acute Distress HEENT: Mucous Memb Moist/[place] Lungs: Clear to Auscultation, Normal Air Movement Heart: Regular Rate, No Murmurs Abdomen: Normal Bowel Sounds, Soft, No Tenderness, No Masses Extremities: Other (1+ pitting edema bilaterally) Skin: No Rashes, No Breakdown Neuro: Normal Speech, Strength at 5/5 X4 Ext, Sensation Intact, Cranial Nerves 3-12 NL Results/Procedures Lab Laboratory Tests 10/28/18 03:07: White Blood Count 8.1, Red Blood Count 2.84L, Hemoglobin 6.0#*L, Hematocrit 23L, Mean Corpuscular Volume 80, Mean Corpuscular Hemoglobin 21L, Mean Corpuscular Hemoglobin Concent 27L, Red Cell Distribution Width 19.7H, Platelet Count 257, Mean Platelet Volume 9.3, Neutrophils (%) (Auto) 71, Lymphocytes (%) (Auto) 19, Monocytes (%) (Auto) 9, Eosinophils (%) (Auto) 1, Basophils (%) (Auto) 0, Neutrophils # (Auto) 5.7, Lymphocytes # (Auto) 1.6, Monocytes # (Auto) 0.7, Eosinophils # (Auto) 0.1, Basophils # (Auto) 0.0, Sodium Level 143, Potassium Level 4.3, Chloride Level 108H, Carbon Dioxide Level 27, Anion Gap 8, Blood Urea Nitrogen 10, Creatinine 0.75, Estimat Glomerular Filtration Rate > 60, BUN/Creatinine Ratio 13, Glucose Level 90, Calcium Level 8.6, Corrected Calcium 8.9, Total Bilirubin 2.3H, Aspartate Amino Transf (AST/SGOT) 18, Alanine Aminotransferase (ALT/SGPT) 13, Alkaline Phosphatase 95, Total Protein 6.4, Albumin 3.6 10/28/18 11:24: Lab Scanned Report Transfusion Reaction Form Assessment/Plan Assessment/Plan (1) Anemia due to acute blood loss Status: Acute Assessment & Plan: - Normal UA, no hematuria, + hemoccult, consult to surgery, pRBCs x 2 units ordered, repeat H/H in AM, Iron panel pending 10/28: s/p pRBCs hgb 6, will order 2 more units then will do IV iron, HDS, Dr Varghese to take patient for EDG and Colonoscopy in AM, possible d/c tomorrow, Continue IV PPI (2) HTN (hypertension) Status: Chronic Assessment & Plan: - Hold home meds due to anemia 10/28: blood pressure stable off meds at this time Qualifiers: Qualified Codes: I10 - Essential (primary) hypertension (3) Obesity Status: Chronic Qualifiers: (4) DVT prophylaxis Status: Acute Assessment & Plan: - SCDs due to anemia, will re evaluate once anemia improved Clinical Quality Measures DVT/VTE Risk/Contraindication: Risk Factor Score Per Nursin RFS Level Per Nursing on Admit: 4+=Very High Contraindications-Mechi: Other *list below* Other: ANEMIA BERTHA DOWELL MD Oct 28, 2018 18:13
[2018-10-29] VITALS (10 sets, daily range): BP systolic 129–176; BP diastolic 62–88
[2018-10-29 05:03] LABS: BASOPHILS % (AUTO) 0 % (0-10); EOSINOPHILS % (AUTO) 0 % (0-10); HEMATOCRIT 29 % (35-52); HEMOGLOBIN 8.3 G/DL (11.5-16.0); LYMPHOCYTES # (AUTO) 1.3 X 10^3 (1.0-4.0); LYMPHOCYTES % (AUTO) 14 % (12-44); MEAN CORPUSCULAR HEMOGLOBIN 23 PG (25-34); MEAN CORPUSCULAR HGB CONC 29 G/DL (32-36); MEAN CORPUSCULAR VOLUME 80 FL (80-99); MEAN PLATELET VOLUME 9.9 FL (7.4-10.4); MONOCYTES # (AUTO) 0.7 X 10^3 (0.0-1.0); MONOCYTES % (AUTO) 8 % (0-12); NEUTROPHILS # (AUTO) 7.4 X 10^3 (1.8-7.8); NEUTROPHILS % (AUTO) 77 % (42-75); PLATELET COUNT 267 10^3/uL (130-400); RED CELL DISTRIBUTION WIDTH 18.6 % (10.0-14.5); WHITE BLOOD COUNT 9.5 10^3/uL (4.3-11.0)
[2018-10-29 05:20] LABS: BUN/CREATININE RATIO 12; CARBON DIOXIDE 25 MMOL/L (21-32); CHLORIDE 107 MMOL/L (98-107); CREATININE SERUM 0.69 MG/DL (0.60-1.30); GFR ESTIMATED > 60; GLUCOSE 86 MG/DL (70-105); SODIUM 142 MMOL/L (135-145)
[2018-10-29] MEDS: ACETAMINOPHEN 500 MG TAB (TYLENOL) PO PRN (05:37)
[2018-10-29] MEDS: CATHETER FLUSH 10 ML SYR IV SCH ×2 (05:38→09:30)
[2018-10-29] MEDS: PANTOPRAZOLE 40 MG (PROTONIX) VIAL IV SCH (09:30)
[2018-10-29] MEDS ORDERED: ONDANSETRON 4 MG/2 ML (SDV) Z0FRAN ONE (12:28)
[2018-10-29] MEDS ORDERED: ONDANSETRON 4 MG/2 ML (SDV) Z0FRAN IVP ONE (12:45)
[2018-10-29] MEDS ORDERED: LACTATED RINGERS 1,000 ML IV ONE (14:09)
--- NOTE | 2018-10-29 14:10 | NUR ---
TO SCOPE ROOM FOR EGD AND COLONOSCOPY
[2018-10-29] MEDS ORDERED: MIDAZOLAM 2 MG/2 ML (VERSED) VIAL ONE (14:12)
[2018-10-29] MEDS ORDERED: PROPOFOL INJECTION 50 ML IV ONE (14:12)
[2018-10-29] MEDS ORDERED: LACTATED RINGERS 1,000 ML IV STA (14:37)
[2018-10-29] MEDS ORDERED: HURRICAINE EXT TUBE (BENZOCAINE) XX PRN (14:45)
--- NOTE | 2018-10-29 16:00 | NUR ---
RETURNED FROM SCOPE ROOM PER W/C. DENIES DISCOMFORT. ANXIOUS AND CRYING AT TIMES. FAMILY MEMBERS AT BEDSIDE.
--- NOTE | 2018-10-29 16:03 | Progress Note-Post Operative ---
Post-Operative Progess Note Surgeon (s)/Cover Cutter Machine (s) Surgeon JEANNIE PULLIAM DO Cover Cutter Machine: none Pre-Operative Diagnosis Rectal bleed, Gastritis Post-Operative Diagnosis same Procedure & Operative Findings Date of Procedure 10/29/18 Procedure Performed/Findings EGD and Colonoscopy Anesthesia Type IV sedation by [employer] Estimated Blood Loss Estimated blood loss (mL): none Specimens/Packing Specimens Removed none JEANNIE PULLIAM DO Oct 29, 2018 16:03
[2018-10-29] MEDS ORDERED: NS 100 ML (IVPB) BAG IV ONE (16:15)
[2018-10-29] MEDS ORDERED: HOLD METFORMIN - RECEIVED CONTRAST 20 ML VIAL IV SCH (16:15)
[2018-10-29] MEDS ORDERED: IOHEXOL 350 MG/ML 100 ML (OMNIPAQUE 350) VIAL IV ONE (16:15)
[2018-10-29] MEDS ORDERED: RT-ALBUTEROL SULF 2.5 MG/3 ML PRE-MIX VIAL IH PRN (16:45)
[2018-10-29] MEDS ORDERED: DIPHENHYDRAMINE HCL 25 MG PO PRN (16:45)
[2018-10-29] MEDS ORDERED: NON-FORMULARY MEDICATION 1 EA EA (Dicyclomine HCl 20 MG) PO PRN (16:45)
[2018-10-29] MEDS ORDERED: FLUOXETINE HCL 60 MG PO PRN (16:45)
[2018-10-29] MEDS ORDERED: LOPERAMIDE HCL PO PRN (16:45)
[2018-10-29] MEDS ORDERED: NON-FORMULARY MEDICATION 1 EA EA (Hydrocodone/Acetaminophen (Hydrocodone-Acetamin 5-325 mg PO PRN (16:45)
[2018-10-29] MEDS ORDERED: LOPERAMIDE 2 MG (IMODIUM) TABLET PO PRN (17:00)
[2018-10-29] MEDS ORDERED: diphenhydrAMINE 25 MG TAB (BENADRYL) PO PRN (17:00)
[2018-10-29] MEDS ORDERED: DICYCLOMINE 10 MG (BENTYL) CAP PO PRN (17:00)
[2018-10-29] MEDS ORDERED: FLUoxetine HCL 20 MG (PROzac) CAP PO PRN (17:00)
[2018-10-29] MEDS ORDERED: HYDROcodone/APAP 5 MG/325 MG (LORTAB) TAB PO PRN (17:00)
--- NOTE | 2018-10-29 18:26 | Diagnostic Imaging Report ---
PROCEDURE: CT abdomen and pelvis with contrast, rule out appendicitis. TECHNIQUE: Multiple contiguous axial images were obtained through the abdomen and pelvis after the administration of intravenous contrast. INDICATION: Right lower quadrant and midabdominal pain. COMPARISON: CT abdomen of 11/07/2016. FINDINGS: Lower chest: The lung bases are clear. No pericardial or pleural effusion. Peritoneum: No free intraperitoneal air or loculated fluid collection. Trace free pelvic fluid. Liver and biliary system: The liver is normal. The gallbladder is normal. No biliary duct dilation. Spleen and Pancreas: Spleen is normal. The pancreas enhances normally without mass lesion or peripancreatic inflammatory changes. Adrenals: Normal. tract: The kidneys enhance normally without suspicious mass or obstruction. Urinary bladder is distended without wall thickening. Uterus appears atrophic. No concerning adnexal mass. GI tract: Unchanged moderate-sized paraesophageal hiatal hernia. No bowel obstruction. No pericolonic inflammatory changes. Normal appendix. Vasculature and Lymph nodes: Normal caliber aorta. No abdominal or pelvic lymphadenopathy. Musculoskeletal: No concerning osseous lesion. IMPRESSION: 1. Trace simple free pelvic fluid would be atypical for a postmenopausal female. However, there are no features of colitis, diverticulitis, appendicitis, or other inflammatory process. 2. No bowel obstruction. 3. Unchanged moderate hiatal hernia. Dictated by: Dictated on workstation # [id number]
--- NOTE | 2018-10-29 18:42 | Discharge Summary ---
Diagnosis/Chief Complaint Date of Admission Oct 27, 2018 at 16:37 Date of Discharge 10/29/2018 Admission Diagnosis Admission Diagnosis Anemia of Acute blood loss GI bleed HTN Obesity Discharge Diagnosis See Below Problems/Diagnosis: (1) Anemia due to acute blood loss Assessment & Plan: - Normal UA, no hematuria, + hemoccult, consult to surgery, pRBCs x 2 units ordered, repeat H/H in AM, Iron panel pending 10/28: s/p pRBCs hgb 6, will order 2 more units then will do IV iron, HDS, Dr Ureña to take patient for EDG and Colonoscopy in AM, possible d/c tomorrow, Continue IV PPI 10/29: Normal EGD and colonoscopy, plan for outpatient pill endoscopy Status: Acute (2) HTN (hypertension) Assessment & Plan: - Hold home meds due to anemia 10/28: blood pressure stable off meds at this time Qualifiers: Qualified Codes: I10 - Essential (primary) hypertension Status: Chronic (3) Obesity Qualifiers: Status: Chronic (4) DVT prophylaxis Assessment & Plan: - SCDs due to anemia, will re evaluate once anemia improved Status: Acute Chief Complaint/HPI Chief Complaint/HPI 62 yo F that presented to ER with profound anemia after being called by PCP. States that she had labs last week and was told that her hgb was in the 4's and that she needed to come into the ER for evaluation. States that she had rectal bleeding 2 years ago and at that time she had colonoscopy and EGD that were normal. Denies any rectal bleeding or blood in her urine. States that she coughed up black last week but didn't think anything of it. States that she has been feeling more short of breath over the last few weeks and states that she has had some weight gain over the last few months. Denies any CAD or COPD. h/o HTN that is well controlled on PO medications. Denies any vaginal bleeding. Discharge Summary-Simple/Stand Procedures 10/29/2018: EGD and Colonoscopy Consultations Dr Varghese: General Surgery Discharge Physical Examination Allergies: Coded Allergies: amoxicillin (Verified Allergy, Unknown, 10/28/18) clavulanic acid (Verified Allergy, Unknown, 10/28/18) Vitals & I&Os Vital Sign - Last 12Hours Date Time Temp Pulse Resp B/P (MAP) Pulse Ox O2 Delivery O2 Flow Rate FiO2 10/29/18 16:38 36.8 66 20 176/71 99 Room Air 10/29/18 15:10 6 Intake and Output 10/29/18 00:00 Intake Total 4290 ml Balance 4290 ml General Appearance: Alert, Oriented X3, Cooperative, No Acute Distress HEENT: Mucous Memb Moist/[place] Respiratory: Clear to Auscultation, Normal Air Movement Cardiovascular: Regular Rate, No Murmurs Abdominal: Normal Bowel Sounds, Soft, No Tenderness, No Masses Extremities: No Edema, No Tenderness/Swelling Skin: No Rashes, No Breakdown Neuro: Normal Speech, Strength at 5/5 X4 Ext, Sensation Intact, Cranial Nerves 3-12 NL Hospital Course See final discharge diagnosis. Discussion & Recommendations 62 yo F that presented to ER with Hgb 4 after being called by PCP. She had shortness of breath and pale skin. Patient was given 2 units of blood and Hgb came up to 6. She was then given another 2 units in the AM. Patient was seen by General surgery and EGD and Colonoscopy were done and were normal. Patient to have pill endoscopy as an outpatient. Discharge Condition at discharge Stable Instructions to patient/family Please see electronic discharge instructions given to patient. Discharge Medications Reviewed and agree with Discharge Medication list on patient's Discharge Instruction sheet Clinical Quality Measures DVT/VTE Risk/Contraindication: Risk Factor Score Per Nursin RFS Level Per Nursing on Admit: 4+=Very High Contraindications-Mechi: Other *list below* Other: ANEMIA Copy Copies To 1: Joselito JACKSON HOLLY R MD Oct 29, 2018 18:42
--- NOTE | 2018-10-29 18:46 | Discharge Instructions ---
Discharge [facility] Reconcile Patient Problems Problems Reviewed?: Yes Discharge Medications New, Converted or Re-Newed RX: Other (No new meds) Continued Medications: Albuterol Sulfate (Proair Hfa) 1 Puff Puff 2 PUFF IH Q4H PRN for SHORTNESS OF BREATH, INHALER 1 PUFF = 90 MCG Budesonide/Formoterol Fumarate (Symbicort 160-4.5 Mcg Inhaler) 10.2 Gm Hfa.aer.ad 2 PUFF IH BID, INHALER LAST FILLED #1 07-15-18 Dicyclomine HCl (Dicyclomine HCl) 20 Mg Tablet 20 MG PO QID PRN for STOMACH UPSET, TAB Diphenhydramine HCl (Sleep-Aid) 25 Mg Capsule 25 MG PO HS PRN for SLEEP, CAP Fluoxetine HCl (Fluoxetine HCl) 60 Mg Tablet 60 MG PO DAILY PRN for NERVES, TAB LAST FILLED #30 07-15-18 Furosemide (Furosemide) 20 Mg Tablet 20 MG PO DAILY, TAB Hydrocodone/Acetaminophen (Hydrocodone-Acetamin 5-325 mg) 1 Each Tablet 1 TAB PO TID PRN for PAIN-MODERATE, TAB LAST FILLED #50 07-15-18 Lisinopril (Lisinopril) 40 Mg Tablet 20 MG PO DAILY, TAB TAKES 1/2 (40MG) TABLET Loperamide HCl (Imodium A-D) 2 Mg Tablet 10 MG PO BID PRN for DIARRHEA, TAB Magnesium Oxide (Magnesium) 400 Mg Tablet 400 MG PO HS, TAB Melatonin (Melatonin) 5 Mg Capsule 5 MG PO HS, CAP Omeprazole Magnesium (Prilosec Otc) 20 Mg Tablet.dr 20 MG PO DAILY PRN for HEARTBURN, TAB Discontinued Medications: Ibuprofen (Ibuprofen) 800 Mg Tablet 800 MG PO TID PRN for PAIN-MILD, TAB Patient Instructions Goal/Follow Up Appt: You will get called tomorrow with f.u appt Patient Instructions: - Do not take any NSAIDS for pain which include: Motrin, Aleve, Aspirin Activity & Diet Discharge Diet: Cardiac Diet, Other Diet (Iron rich diet) Orders-Post D/C & Referrals Pneu Vac Indicated: Yes Copy Copies To 1: Joselito JACKSON HOLLY R MD Oct 29, 2018 18:46
--- NOTE | 2018-10-29 19:10 | NUR ---
GABRIELE MCDOWELL demonstrates understanding of discharge instructions and accurately returns instructions upon questioning. Copy of Post-Discharge Instructions given to PT. GABRIELE MCDOWELL is able to manage continuing needs after discharge. Patients belongings returned to PT. Patient discharged from [facility] on 10/29/18 at 1910. GABRIELE MCDOWELL left floor via W/C, accompanied by STAFF AND PER AUTO.
[2018-10-29] MEDS ORDERED: RT-ADVAIR HFA 115/21 MCG PER PUFF IH SCH (20:00)
[2018-10-29] MEDS ORDERED: NON-FORMULARY MEDICATION 1 EA EA (Budesonide/Formoterol Fumarate (Symbicort 160-4.5 Mcg In IH SCH (21:00)
[2018-10-29] MEDS ORDERED: NON-FORMULARY MEDICATION 1 EA EA (Melatonin 5 MG) PO SCH (21:00)
[2018-10-29] MEDS ORDERED: NON-FORMULARY MEDICATION 1 EA EA (Magnesium Oxide (Magnesium) 400 MG) PO SCH (21:00)
[2018-10-29] MEDS ORDERED: MELATONIN 3 MG TABLET PO SCH (21:00)
[2018-10-29] MEDS ORDERED: MAGNESIUM OXIDE (MAG-OX)400 MG TAB PO SCH (21:00)
--- NOTE | 2018-10-30 00:30 | OPERATIVE REPORT ---
DATE OF SERVICE: PREOPERATIVE DIAGNOSES: Rectal bleed, anemia, hematemesis. POSTOPERATIVE DIAGNOSES: Possibly mild gastritis or esophagitis, AVM, internal hemorrhoids. PROCEDURES: 1. EGD. 2. Colonoscopy. SURGEON: Davion Varghese DO FISHING BOAT MATE: None. ANESTHESIA: IV sedation by the BUSINESS SOLUTIONS DIRECTOR. SPECIMENS: None. BLOOD LOSS: None. FLUIDS: Per anesthesia. POSTOPERATIVE CONDITION: Stable. INDICATION FOR PROCEDURE: The patient is a 62-year-old female who had a profound anemia; with history of rectal bleeding and did have some hematemesis. FINDINGS: The patient had some very mild if any gastritis. Duodenum looked okay, did have some mild creeping of the GE junction, but no other obvious pathology in the stomach. She had one AVM in the cecal area, possibly ascending colon. Some mild internal hemorrhoids, nothing else seen. PROCEDURE NOTE: After informed consent was obtained, the patient was brought to the endoscopy suite and placed in the left lateral decubitus position. She was administered IV sedation by the BUSINESS SOLUTIONS DIRECTOR who monitored her vitals the entire time, heart rate, blood pressure and pulse ox and the scope was inserted down the mouth through the esophagus into the stomach, pushed into the stomach, antrum looked okay, may have been a little bit of gastritis, pushed into the duodenum. Duodenum looked fine. Pulled back and did not really see any inflammation in the body of the stomach. GE junction a little bit of creeping up, but no obvious inflammation, pulled the scope out. The patient was coughing elected not to go back and to do any biopsies and then started with colonoscopy, pushed the scope in all the way about 100 cm, able to get to the cecum, took a picture of appendiceal orifice and then pushed into the terminal ileum got a good picture of the terminal ileum. Backed up a little bit from the cecum withdrawing looking circumferentially as well as looking at the cecum and I am not sure whether it was in the cecum or the ascending colon, saw an AVM, took a picture of this and then continued up the ascending colon to the hepatic flexure, then down the transverse colon, the splenic flexure, into the descending colon and down the sigmoid and finally into the rectum, retroflexed the rectal vault, saw some minimal internal hemorrhoids, did not see any other obvious pathology and at this point, I removed the scope. The patient tolerated the procedure, recovered in endoscopy suite. Job ID: [id number] DocumentID: [id number] Dictated Date: 10/29/2018 15:17:46 Credit Risk Management Director Date: 10/30/2018 00:29:14 Dictated By: DO LENY LANDRY
[2018-10-30] MEDS ORDERED: lisINopril 20 MG (PRINIVIL) TABLET PO SCH (09:00)
[2018-10-30] MEDS ORDERED: FUROSEMIDE 20 MG (LASIX) TAB PO SCH (09:00)
[2018-10-30] MEDS ORDERED: lisINopril 40 MG (PRINIVIL) TABLET PO SCH (09:00)
== END 2018-10-29 19:10 | disposition home or self-care (01) | DRG 812 ==
LOC: EDUNIT# 15:30 → ER 15:31 → 4TH 16:37 → ICU 18:06 → 4TH 10-28 14:41
PROVIDERS: ADMIT Family Medicine; ATTEND Family Medicine
PROC: 0DJ08ZZ Inspection of Upper Intestinal Tract, Via Natural or Artificial Opening Endoscopic (ICD-10-PCS; principal; 2018-10-29 14:00)
PROC: 0WJP8ZZ Inspection of Gastrointestinal Tract, Via Natural or Artificial Opening Endoscopic Approach (ICD-10-PCS; 2018-10-29 14:00)
DX: D62 Acute posthemorrhagic anemia (principal); R04.2 Hemoptysis; R19.5 Other fecal abnormalities; I10 Essential (primary) hypertension; E66.9 Obesity, unspecified; Z68.43 Body mass index [BMI] 50.0-59.9, adult; K64.8 Other hemorrhoids; K29.70 Gastritis, unspecified, without bleeding; K55.20 Angiodysplasia of colon without hemorrhage; F32.9 Major depressive disorder, single episode, unspecified; M54.9 Dorsalgia, unspecified; K21.9 Gastro-esophageal reflux disease without esophagitis; G47.9 Sleep disorder, unspecified; F41.9 Anxiety disorder, unspecified; M19.91 Primary osteoarthritis, unspecified site
CPT/HCPCS: 36415; 74177; 80048; 80053; 81000; 82274; 82728; 83540; 85025; 86850; 86900; 86901; 86920

== ENCOUNTER → 2019-11-24 | Outpatient (CLI) | payer MEDICARE ==
[~2019-11-24] MED LIST changes: +BUDE10.2 IH; +DICY20TA10 PO; +DIPH-639 PO; +FLUO60TA PO; +IBUP-1780 PO; +LOPE-134 PO; +MAGN400T39 PO; +MELA5CAP PO; +OMEP20TA33 PO; +RT-ALBUINH IH
--- NOTE | 2019-11-24 12:09 | Diagnostic Imaging Report ---
INDICATION: Postmenopausal state. COMPARISON: None available. FINDINGS: AP Spine L1-L4: [BMD (g/cm2): 0.905] [T-Score: -2.5] [Z-Score: -2.2] [BMD Previous: na] [BMD % Change: na] LT Hip Neck: [BMD (g/cm2): 0.845] [T-Score: -1.4] [Z-Score: -0.8] LT Hip Total: [BMD (g/cm2):0.948] [T-Score:-0.5] [Z-Score: -0.2] [BMD Previous: na] [BMD % Change: na] RT Hip Neck: [BMD (g/cm2):0.891] [T-Score:-1.1] [Z-Score:-0.4] RT Hip Total: [BMD (g/cm2):0.923] [T-score:-0.7] [Z-Score:-0.4] [BMD Previous:na] [BMD % Change:na] *Indicates significant change from prior examination based on 95% confidence level. World Health Organization criteria for BMD interpretation classify patients as Normal (T-score at or above -1.0), Osteopenic (T-score between -1.0 and -2.5) or Osteoporotic (T-score at or below -2.5). LIMITATIONS AND MODIFICATION: None. FRACTURE RISK (FRAX SCORE): The ten year probability of (%): Major Osteoporotic Fracture: [11.7] Hip Fracture: [0.9] IMPRESSION: 1. Osteoporosis. 2. Baseline examination. 3. See below National Osteoporosis Foundation guidelines on when to potentially initiate pharmacologic therapy. Based on the National Osteoporosis Foundation Guidelines, pharmacologic treatment should be initiated in any of the following, unless clinical conditions suggest otherwise: * Any patient with prior fragility fracture of the hip or vertebrae. A spine fracture indicates 5X risk for subsequent spine fracture and 2X risk for subsequent hip fracture. * Osteoporosis (T-score <-2.5). * Postmenopausal women and men age 50 and older with low bone mass/osteopenia (T-score between -1.0 and -2.5) by DXA and 10-year major osteoporotic fracture greater than 20% or a 10-year probability of hip fracture greater than 3%. These fracture risks are supplied above in the FRAX score, if applicable. * Clinician judgement and/or patient preferences may indicate treatment for people with 10-year fracture probabilities above or below these levels. Dictated by: Dictated on workstation # [id number]
== END ==
LOC: RAD 08:30
PROVIDERS: ATTEND Nurse Practitioner Family
DX: M81.0 Age-related osteoporosis without current pathological fracture (principal); Z98.0 Intestinal bypass and anastomosis status
CPT/HCPCS: 77080

== ENCOUNTER 2021-01-20 17:12 | Emergency (ER) | payer MEDICARE ==
[~2021-01-20] VITALS: Ht 162 cm; Wt 122.0 kg
[~2021-01-20 17:12] MED LIST changes: +DICY20TA PO; -DICY20TA10 PO; -LISI40TA PO; +LISI40TA9 PO
[2021-01-20] MEDS ORDERED: ORPHENADRINE 60 MG/2 ML (NORFLEX) AMP (ED ONLY) IV ONE (18:00)
[2021-01-20 18:13] LABS: POTASSIUM 4.7 MMOL/L (3.6-5.0)
[2021-01-20 18:14] LABS: BILIRUBIN,URINE NEGATIVE (NEGATIVE); CLARITY,URINE CLEAR; COLOR,URINE YELLOW; GLUCOSE, URINE (UA) NEGATIVE (NEGATIVE); KETONES,URINE NEGATIVE (NEGATIVE); LEUKOCYTE ESTERASE ,URINE NEGATIVE (NEGATIVE); NITRITE,URINE NEGATIVE (NEGATIVE); PH,URINE 5.5 (5-9); PROTEIN,URINE NEGATIVE (NEGATIVE)
[2021-01-20 18:19] LABS: CREATININE SERUM 1.21 MG/DL (0.60-1.30)
[2021-01-20] MEDS ORDERED: methylPREDNISolone 125 MG (Solu-MEDROL) VIAL IM ONE (18:30)
--- NOTE | 2021-01-20 18:35 | ED Back Pain ---
General Chief Complaint: Back Problems Stated Complaint: LOWER BACK PAIN Nursing Triage Note: ARRIVED VIA AMB TO ROOM 08. STATES HER BACK HAS BEEN HURTING SINCE SATURDAY. THINKS IT IS FROM HER HUSBANDS HEAVY CAR DOOR. HAS TAKEN MUSCLE RELAXERS, TYLENOL, AND A HYDROCODONE. History of Present Illness Date Seen by Provider: Jan 20, 2021 Time Seen by Provider: 18:00 Initial Comments ASSUMED CARE OF PT FROM DR. GUALLPA AT [facility]IFT [facility]--LABS ARE PENDING PT C/O LOWER BACK PAIN SINCE SATURDAY --01/15/21 NO INJURY, BUT BEGAN AFTER OPENING A HEAVY CAR DOOR NO RADIATION OF PAIN LEFT FOOT OCCASIONALLY FEELS A LITTLE TINGLY NO MOTOR DEFICITS NO LOSS OF BOWEL OR BLADDER CONTROL. NO URINARY SYMPTOMS NO FEVER NO GI SYMPTOMS PT HAS SEEN HER PCP AT [facility] THIS WEEKAND WAS PRESCRIBED HYDROCODONE AND ANOTHER MEDICATION--SHE THINKS IS A "MUSCLE RELAXANT" BUT PT DOES NOT KNOW NAME OF MEDICATION Other Comments PCP: [facility] Allergies and Home Medications Allergies Coded Allergies: amoxicillin (Verified Allergy, Unknown, 10/28/18) clavulanic acid (Verified Allergy, Unknown, 10/28/18) Patient Home Medication List Albuterol Sulfate (Proair Hfa) 1 Puff Puff, 2 PUFF IH Q4H PRN for SHORTNESS OF BREATH, (Reported) Entered as Reported by: MIGUEL ARIAS on 10/28/18 1058 Budesonide/Formoterol Fumarate (Symbicort 160-4.5 Mcg Inhaler) 10.2 Gm Hfa.aer.ad, 2 PUFF IH BID, (Reported) Entered as Reported by: MIGUEL ARIAS on 10/28/18 1058 Dicyclomine HCl (Dicyclomine HCl) 20 Mg Tablet, 20 MG PO QID PRN for STOMACH UPSET, (Reported) Entered as Reported by: MIGUEL ARIAS on 10/28/18 1058 Diphenhydramine HCl (Sleep-Aid) 25 Mg Capsule, 25 MG PO HS PRN for SLEEP, (Reported) Entered as Reported by: MIGUEL ARIAS on 10/28/18 1058 Fluoxetine HCl (Fluoxetine HCl) 60 Mg Tablet, 60 MG PO DAILY PRN for NERVES, (Reported) Entered as Reported by: MIGUEL ARIAS on 10/28/18 1058 Furosemide (Furosemide) 20 Mg Tablet, 20 MG PO DAILY, (Reported) Entered as Reported by: NATASHA GEIGER on 11/15/16 0944 Hydrocodone Bit/Acetaminophen (Lortab 5 Mg Tablet) 1 Each Tablet, 1 TAB PO TID PRN for PAIN-MODERATE, (Reported) Entered as Reported by: MIGUEL ARIAS on 10/28/18 1058 Lisinopril (Lisinopril) 40 Mg Tablet, 20 MG PO DAILY, (Reported) Entered as Reported by: NATASHA GEIGER on 11/15/16 0944 Loperamide HCl (Imodium A-D) 2 Mg Tablet, 10 MG PO BID PRN for DIARRHEA, (Reported) Entered as Reported by: MIGUEL ARIAS on 10/28/18 1058 Magnesium Oxide (Magnesium) 400 Mg Tablet, 400 MG PO HS, (Reported) Entered as Reported by: MIGUEL ARIAS on 10/28/18 1058 Melatonin (Melatonin) 5 Mg Capsule, 5 MG PO HS, (Reported) Entered as Reported by: MIGUEL ARIAS on 10/28/18 1058 Omeprazole Magnesium (Prilosec Otc) 20 Mg Tablet.dr, 20 MG PO DAILY PRN for HEARTBURN, (Reported) Entered as Reported by: MIGUEL ARIAS on 10/28/18 1058 Review of Systems Constitutional: no symptoms reported Respiratory: no symptoms reported Cardiovascular: no symptoms reported Gastrointestinal: no symptoms reported Genitourinary: no symptoms reported Musculoskeletal: see HPI, back pain Skin: no symptoms reported Psychiatric/Neurological: See HPI Past Nrsowwe-Klvzid-Ynaonm Hx Patient Social History Smoking Status: Never a Smoker Use of E-Cig and/or Vaping Arian: Never a User Substance use?: No Alcohol Use?: No Immunizations Up To Date Tetanus Booster (TDap): Unknown Seasonal Allergies Seasonal Allergies: No Past Medical History Surgeries: Yes (RIGHT FOOT, RIGHT WRIST, l knee scope, ) Orthopedic Respiratory: Yes (Pt unsure of dx) Cardiac: Yes Hypertension Neurological: No Genitourinary: No Gastrointestinal: Yes (rectal bleeding) Gastroesophageal Reflux, Chronic Diarrhea Musculoskeletal: Yes Arthritis Endocrine: No HEENT: No Cancer: No Psychosocial: Yes Sleep Difficulties, Anxiety, Depression Integumentary: No Blood Disorders: No Family Medical History Cardiovascular disease 19 MOTHER Neoplasm 19 FATHER Heart Disease, Cancer Physical Exam Vital Signs Vital Signs - First Documented 01/20/21 17:20 Temp 36.3 Pulse 66 Resp 16 B/P (MAP) 143/74 (97) Pulse Ox 99 O2 Delivery Room Air Capillary Refill : Less Than 3 Seconds Height, Weight, BMI Height: 5'0.00" Weight: 265lbs. 5.0oz. [id number]; 46.00 BMI Method:Stated General Appearance: WD/WN, Obese (MORBIDLY ), Other (MOVES AND WALKS SLOWLY, SLIGHTLY BENT AT WAIST) Cardiovascular: Regular Rate, Rhythm Respiratory: Normal Breath Sounds Gastrointestinal: Non Tender Back: Other (DIFFUSE LOWER BACK TENDERNESS) Extremity: No Calf Tenderness, No Pedal Edema Neurologic/Psychiatric: Alert, Oriented x3, No Motor/Sensory Deficits, Other (DTR'S INTACT. NEGATIVE STRAIGHT LEG RAISING BILATERALLY) Skin: Normal Color, Warm/Dry Progress/Results/Core Measures Results/Orders Lab Results Laboratory Tests Test 01/20/21 17:44 01/20/21 18:07 Range/Units Sodium Level 139 135-145 MMOL/L Potassium Level 4.7 3.6-5.0 MMOL/L Chloride Level 106 98-107 MMOL/L Carbon Dioxide Level 22 21-32 MMOL/L Anion Gap 11 5-14 MMOL/L Blood Urea Nitrogen 31 H 7-18 MG/DL Creatinine 1.21 0.60-1.30 MG/DL Estimat Glomerular Filtration Rate 45 BUN/Creatinine Ratio 26 Glucose Level 95 70-105 MG/DL Calcium Level 9.0 8.5-10.1 MG/DL Urine Color YELLOW Urine Clarity CLEAR Urine pH 5.5 5-9 Urine Specific Casey >=1.030 1.016-1.022 Urine Protein NEGATIVE NEGATIVE Urine Glucose (UA) NEGATIVE NEGATIVE Urine Ketones NEGATIVE NEGATIVE Urine Nitrite NEGATIVE NEGATIVE Urine Bilirubin NEGATIVE NEGATIVE Urine Urobilinogen 0.2 < = 1.0 MG/DL Urine Leukocyte Esterase NEGATIVE NEGATIVE Urine RBC (Auto) NEGATIVE NEGATIVE Urine RBC NONE /HPF Urine WBC NONE /HPF Urine Squamous Epithelial Cells NONE /HPF Urine Crystals NONE /LPF Urine Bacteria NEGATIVE /HPF Urine Casts NONE /LPF Urine Mucus NEGATIVE /LPF Urine Culture Indicated NO My Orders Orders - JONATHAN ARCE DO Methylprednisolone Sod Succ (Solu-Medrol (01/20/21 18:30) Methylprednisolone Sod Succ (Solu-Medrol (01/20/21 18:45) Medications Given in ED Current Medications Medications Dose Ordered Sig/Moe Route Start Time Stop Time Status Last Admin Dose Admin Methylprednisolone Sodium Succinate 125 mg ONCE ONCE IVP 01/20/21 18:45 01/20/21 18:46 01/20/21 18:35 125 MG Orphenadrine Citrate 60 mg ONCE ONCE IV 01/20/21 18:00 01/20/21 18:01 DC 01/20/21 18:06 60 MG Vital Signs/I&O 01/20/21 17:20 Temp 36.3 Pulse 66 Resp 16 B/P (MAP) 143/74 (97) Pulse Ox 99 O2 Delivery Room Air Blood Pressure Mean: 97 Progress Progress Note : Progress Note PT WAS GIVEN NORFLEX PRIOR TO MY ARRIVAL PT DECLINES TORADOL--STATES IT MAKES HER VERY SICK TO HER STOMACH GAVE SOLU-MEDROL Departure Impression Primary Impression: Low back strain Disposition: HOME, SELF-CARE Condition: Stable Departure-Patient Inst. Decision time for Depature: 18:45 Referrals: [facility] (PCP) Primary Care Physician MELISSA CORLEY (Family) Primary Care Physician Patient Instructions: Low Back Pain ED, Back Muscle Strain (DC) Add. Discharge Instructions: MOIST HEAT TO LOWER BACK AT 20 MINUTE INTERVALS TAKE YOUR HYDROCODONE PRESCRIBED [facility] IF NO BETTER All discharge instructions reviewed with patient and/or family. Voiced understanding. Scripts Tizanidine HCl (Zanaflex) 4 Mg Capsule 4 MG PO TID for Spasms, #15 CAP Prov: JONATHAN ARCE DO 01/20/21 Methylprednisolone (Medrol) 4 Mg Tab.ds.pk 4 MG PO UD for 6 Days, #21 PKG PER DOSE PACK INSTRUCTIONS Prov: JONATHAN ARCE K DO 01/20/21 MAISHA ARCEA K DO Jan 20, 2021 18:35
[2021-01-20 18:40] LABS: BACTERIA,URINE NEGATIVE /HPF
[2021-01-20] MEDS ORDERED: methylPREDNISolone 125 MG (Solu-MEDROL) VIAL IVP ONE (18:45)
[2021-01-20] MEDS ORDERED: METH4TAB PO (18:46)
[2021-01-20] MEDS ORDERED: TIZA4CAP PO (18:46)
[2021-01-20 18:51] VITALS: BP 152/63
== END 2021-01-20 18:51 | disposition home or self-care (01) ==
LOC: EDUNIT# 17:12 → ER 17:14
DX: S39.012A Strain of muscle, fascia and tendon of lower back, initial encounter (principal); I10 Essential (primary) hypertension; K21.9 Gastro-esophageal reflux disease without esophagitis; F41.9 Anxiety disorder, unspecified; F32.9 Major depressive disorder, single episode, unspecified; E66.01 Morbid (severe) obesity due to excess calories; Z68.42 Body mass index [BMI] 45.0-49.9, adult; Z79.899 Other long term (current) drug therapy; X50.0XXA Overexertion from strenuous movement or load, initial encounter
CPT/HCPCS: 36415; 80048; 81000

== ENCOUNTER 2021-11-03 11:31 | Emergency (ER) | payer MEDICARE, OTHER ==
[~2021-11-03] VITALS: Ht 157 cm; Wt 122.0 kg
[~2021-11-03 11:31] MED LIST changes: +METH4TAB PO; +TIZA4CAP PO
--- NOTE | 2021-11-03 12:12 | ED General ---
General Chief Complaint: Respiratory Problems Stated Complaint: TROUBLE BREATHING, LOSS OF BALANCE, BRAIN FOG Source of Information: Patient Exam Limitations: No Limitations History of Present Illness Date Seen by Provider: Nov 03, 2021 Time Seen by Provider: 11:41 Initial Comments Here with report of shortness of breath with activity, swelling in her legs and feeling foggy headed. She states she last felt like this when she needed to have a blood transfusion. She does have IBS and has had previous colonoscopies to evaluate for blood loss. Of note, she states she will never do that again. She did go to [facility] last week and had labs drawn but does not know the results. She had told them how she is feeling and they mention she might need to go to the ED. She does not know the lab results. Denies chest pain or vomiting. She does have chronic diarrhea. She is post to be on furosemide but has not been doing that because she does not want to spend all of her time in the bathroom. She already spends a fair amount of time due to her chronic IBS with diarrhea. Denies upper respiratory symptoms or constitutional symptoms otherwise. Timing/Duration: 1 Week Severity: Moderate Associated Systoms: No Chest Pain, No Cough, No Fever/Chills; Headaches, Malaise; No Nausea/Vomiting; Shortness of Air, Weakness Allergies and Home Medications Allergies Coded Allergies: amoxicillin (Verified Allergy, Unknown, 11/03/21) clavulanic acid (Verified Allergy, Unknown, 11/03/21) Patient Home Medication List Home Medication List Reviewed: Yes Albuterol Sulfate (Proair Hfa) 1 Puff Puff, 2 PUFF IH Q4H PRN for SHORTNESS OF BREATH, (Reported) Entered as Reported by: MIGUEL ARIAS on 10/28/18 1058 Budesonide/Formoterol Fumarate (Symbicort 160-4.5 Mcg Inhaler) 10.2 Gm Hfa.aer .ad, 2 PUFF IH BID, (Reported) Entered as Reported by: MIGUEL ARIAS on 10/28/18 1058 Dicyclomine HCl (Dicyclomine HCl) 20 Mg Tablet, 20 MG PO QID PRN for STOMACH UPSET, (Reported) Entered as Reported by: MIGUEL ARIAS on 10/28/18 1058 Diphenhydramine HCl (Sleep-Aid) 25 Mg Capsule, 25 MG PO HS PRN for SLEEP, (Reported) Entered as Reported by: MIGUEL ARIAS on 10/28/18 105 Fluoxetine HCl (Fluoxetine HCl) 60 Mg Tablet, 60 MG PO DAILY PRN for NERVES, (Reported) Entered as Reported by: MIGUEL ARIAS on 10/28/18 105 Furosemide (Furosemide) 20 Mg Tablet, 20 MG PO DAILY, (Reported) Entered as Reported by: NATASHA GEIGER on 11/15/16 0944 Hydrocodone Bit/Acetaminophen (Lortab 5 Mg Tablet) 1 Each Tablet, 1 TAB PO TID PRN for PAIN-MODERATE, (Reported) Entered as Reported by: MIGUEL ARIAS on 10/28/18 105 Lisinopril (Lisinopril) 40 Mg Tablet, 20 MG PO DAILY, (Reported) Entered as Reported by: NATASHA GEIGER on 11/15/16 0944 Loperamide HCl (Imodium A-D) 2 Mg Tablet, 10 MG PO BID PRN for DIARRHEA, (Reported) Entered as Reported by: MIGUEL ARIAS on 10/28/18 105 Magnesium Oxide (Magnesium) 400 Mg Tablet, 400 MG PO HS, (Reported) Entered as Reported by: MIGUEL ARIAS on 10/28/18 105 Melatonin (Melatonin) 5 Mg Capsule, 5 MG PO HS, (Reported) Entered as Reported by: MIGUEL ARIAS on 10/28/18 105 Methylprednisolone (Medrol) 4 Mg Tab.ds.pk, 4 MG PO UD Prescribed by: JONATHAN ARCE on 01/20/211845 Omeprazole Magnesium (Prilosec Otc) 20 Mg Tablet.dr, 20 MG PO DAILY PRN for HEARTBURN, (Reported) Entered as Reported by: MIGUEL ARIAS on 10/28/18 105 Tizanidine HCl (Zanaflex) 4 Mg Capsule, 4 MG PO TID Prescribed by: JONATHAN ARCE on 01/20/211845 Review of Systems Review of Systems Constitutional: No chills, No fever EENTM: No nose congestion, No throat pain Respiratory: No cough; dyspnea on exertion, short of breath Cardiovascular: No chest pain; edema Gastrointestinal: diarrhea; No nausea, No vomiting Genitourinary: no symptoms reported Musculoskeletal: No muscle pain, No muscle weakness Psychiatric/Neurological: Anxiety, Weakness Hematologic/Lymphatic: Anemia; Denies Easy Bleeding All Other Systems Reviewed Negative Unless Noted: Yes Past Samyuon-Vsogmi-Spidkm Hx Patient Social History Tobacco Use?: No Use of E-Cig and/or Vaping dev: No Substance use?: No Immunizations Up To Date Tetanus Booster (TDap): Unknown Seasonal Allergies Seasonal Allergies: No Past Medical History Surgeries: Yes (RIGHT FOOT, RIGHT WRIST, l knee scope, ) Orthopedic Respiratory: Yes (Pt unsure of dx) Cardiac: Yes Hypertension Neurological: No Genitourinary: No Gastrointestinal: Yes (rectal bleeding) Gastroesophageal Reflux, Chronic Diarrhea Musculoskeletal: Yes Arthritis Endocrine: No HEENT: No Cancer: No Psychosocial: Yes Sleep Difficulties, Anxiety, Depression Integumentary: No Blood Disorders: No Family Medical History Reviewed Nursing Family Hx Cardiovascular disease 19 MOTHER Neoplasm 19 FATHER Heart Disease, Cancer Physical Exam Vital Signs Vital Signs - First Documented 11/03/21 11:35 Temp 36.6 Pulse 79 Resp 22 B/P (MAP) 189/76 (113) Pulse Ox 99 O2 Delivery Room Air Capillary Refill : Height, Weight, BMI Height: 5'0.00" Weight: 265lbs. 5.0oz. 120.452552od; 46.00 BMI Method:Stated General Appearance: WD/WN, Anxious, Obese HEENT: PERRL/EOMI, Pharynx Normal Neck: Non Tender, Supple Respiratory: Lungs Clear, Normal Breath Sounds Cardiovascular: Regular Rate, Rhythm, No Murmur Gastrointestinal: Non Tender, Soft Back: Normal Inspection, No CVA Tenderness, No Vertebral Tenderness Extremity: Normal Inspection, Non Tender, Pedal Edema Neurologic/Psychiatric: Alert, Oriented x3 Skin: Normal Color, Warm/Dry Progress/Results/Core Measures Suspected Sepsis SIRS Temperature: Pulse: Respiratory Rate: Laboratory Tests 11/03/21 11:50: White Blood Count 9.3 Blood Pressure / Mean: Laboratory Tests 11/03/21 11:50: Creatinine 1.07, Platelet Count 287, Total Bilirubin 0.2 Results/Orders Lab Results Laboratory Tests Test 11/03/21 11:50 11/03/21 12:40 Range/Units White Blood Count 9.3 4.3-11.0 10^3/uL Red Blood Count 3.84 3.80-5.11 10^6/uL Hemoglobin 8.8 L 11.5-16.0 g/dL Hematocrit 31 L 35-52 % Mean Corpuscular Volume 81 80-99 fL Mean Corpuscular Hemoglobin 23 L 25-34 pg Mean Corpuscular Hemoglobin Concent 28 L 32-36 g/dL Red Cell Distribution Width 17.9 H 10.0-14.5 % Platelet Count 287 130-400 10^3/uL Mean Platelet Volume 9.4 9.0-12.2 fL Immature Granulocyte % (Auto) 0 % Neutrophils (%) (Auto) 69 42-75 % Lymphocytes (%) (Auto) 23 12-44 % Monocytes (%) (Auto) 6 0-12 % Eosinophils (%) (Auto) 1 0-10 % Basophils (%) (Auto) 1 0-10 % Neutrophils # (Auto) 6.5 1.8-7.8 10^3/uL Lymphocytes # (Auto) 2.2 1.0-4.0 10^3/uL Monocytes # (Auto) 0.6 0.0-1.0 10^3/uL Eosinophils # (Auto) 0.1 0.0-0.3 10^3/uL Basophils # (Auto) 0.1 0.0-0.1 10^3/uL Immature Granulocyte # (Auto) 0.0 0.0-0.1 10^3/uL Sodium Level 143 135-145 MMOL/L Potassium Level 5.0 3.6-5.0 MMOL/L Chloride Level 108 H 98-107 MMOL/L Carbon Dioxide Level 21 21-32 MMOL/L Anion Gap 14 5-14 MMOL/L Blood Urea Nitrogen 21 H 7-18 MG/DL Creatinine 1.07 0.60-1.30 MG/DL Estimat Glomerular Filtration Rate 58 BUN/Creatinine Ratio 20 Glucose Level 112 H 70-105 MG/DL Calcium Level 9.2 8.5-10.1 MG/DL Corrected Calcium 9.4 8.5-10.1 MG/DL Magnesium Level 1.8 1.6-2.4 MG/DL Total Bilirubin 0.2 0.1-1.0 MG/DL Aspartate Amino Transf (AST/SGOT) 12 5-34 U/L Alanine Aminotransferase (ALT/SGPT) 10 0-55 U/L Alkaline Phosphatase 71 40-136 U/L Troponin I < 0.028 <0.028 NG/ML C-Reactive Protein High Sensitivity 0.95 H 0.00-0.50 MG/DL B-Type Natriuretic Peptide 152.9 H <100.0 PG/ML Total Protein 7.1 6.4-8.2 GM/DL Albumin 3.7 3.2-4.5 GM/DL Urine Color YELLOW Urine Clarity CLEAR Urine pH 6.0 5-9 Urine Specific [place] 1.020 1.016-1.022 Urine Protein NEGATIVE NEGATIVE Urine Glucose (UA) NEGATIVE NEGATIVE Urine Ketones NEGATIVE NEGATIVE Urine Nitrite NEGATIVE NEGATIVE Urine Bilirubin NEGATIVE NEGATIVE Urine Urobilinogen 0.2 < = 1.0 MG/DL Urine Leukocyte Esterase NEGATIVE NEGATIVE Urine RBC (Auto) NEGATIVE NEGATIVE Urine RBC NONE /HPF Urine WBC 0-2 /HPF Urine Squamous Epithelial Cells 2-5 /HPF Urine Crystals NONE /LPF Urine Bacteria FEW H /HPF Urine Casts NONE /LPF Urine Mucus NEGATIVE /LPF Urine Culture Indicated NO My Orders Orders - JAZ JOYCE MD Ed Iv/Invasive Line Start (11/03/21 12:12) Ekg Tracing (11/03/21 12:12) Monitor-Rhythm Ecg Trace Only (11/03/21 12:12) Chest 1 View, Ap/Pa Only (11/03/21 12:12) Bnp Berenice (11/03/21 12:12) Cbc With Automated Diff (11/03/21 12:12) Comprehensive Metabolic Panel (11/03/21 12:12) Hs C Reactive Protein (11/03/21 12:12) Fibrin Degradation Products (11/03/21 12:12) Magnesium (11/03/21 12:12) Troponin I [place] (11/03/21 12:12) Ua Culture If Indicated (11/03/21 12:12) Alprazolam Tablet (Xanax Tablet) (11/03/21 12:30) Alprazolam Tablet (Xanax Tablet) (11/03/21 13:30) Medications Given in ED Current Medications Medications Dose Ordered Sig/Moe Route Start Time Stop Time Status Last Admin Dose Admin Alprazolam 0.5 mg ONCE ONCE PO 11/03/21 13:30 11/03/21 13:31 DC 11/03/21 13:25 0.5 MG Vital Signs/I&O 11/03/21 11/03/21 11:35 11:35 Temp 36.6 Pulse 79 Resp 22 B/P (MAP) 189/76 (113) Pulse Ox 99 O2 Delivery Room Air Room Air Capillary Refill : Progress Note : Progress Note Seen and evaluated. IV, labs, EKG and chest x-ray ordered. We will get UA. I will give 0.5 mg of Xanax p.o. as patient is quite nervous currently. She is not having any GI symptoms currently other than her chronic diarrhea. This might help settle her down some. She was in agreement. Monitor patient. 1400: Overall much improved. Hemoglobin is low normal but much higher than her last hemoglobin level. Seems to be stable for her. She does have some findings of cardiomegaly and mild fluid overload. I do believe this is related to her not taking her Lasix. I did discuss this with her. She has that available for her and she will start that today. We will do 2 tablets today and resume 1 a day starting tomorrow and she will follow-up with her primary care doctor. Discharged home with return precautions. Patient verbalized understanding of instructions and agreement with plan. D-dimer test is still outstanding due to machine failure. I believe she is low risk as she has normal heart rate and oxygen saturation 98% on room air. Findings more likely related to fluid volume overload. If there is any concern with the test when it does process, we will call her. This was discussed with the patient who agrees. Departure Impression Primary Impression: Fluid overload Qualified Codes: E87.70 - Fluid overload, unspecified Additional Impression: Dyspnea Qualified Codes: R06.09 - Other forms of dyspnea Disposition: 01 HOME, SELF-CARE Condition: Improved Departure-Patient Inst. Decision time for Depature: 14:03 Referrals: [facility] (PCP) Primary Care Physician MELISSA CORLEY (Family) Primary Care Physician Patient Instructions: Shortness of Breath (Dyspnea), Dependent Edema (DC) Add. Discharge Instructions: All discharge instructions reviewed with patient and/or family. Voiced understanding. You should take your Lasix as prescribed. You may start that today by taking 2 tablets today and then resuming 1 daily tomorrow. Follow-up with your doctor next week for recheck and further evaluation. You may use the walk-in clinic. Return for worse pain, fever, vomiting, weakness, breathing problems or other concerns as needed. Copy Copies To 1: SHANNA TELLEZ MD, TIMOTHY D MD Nov 03, 2021 12:12
[2021-11-03 12:24] LABS: ALBUMIN 3.7 GM/DL (3.2-4.5); CHLORIDE 108 MMOL/L (98-107); SODIUM 143 MMOL/L (135-145)
[2021-11-03 12:25] LABS: CALCIUM 9.2 MG/DL (8.5-10.1)
[2021-11-03 12:26] LABS: GLUCOSE 112 MG/DL (70-105)
[2021-11-03 12:27] LABS: BASOPHILS # (AUTO) 0.1 10^3/uL (0.0-0.1); BASOPHILS % (AUTO) 1 % (0-10); EOSINOPHILS # (AUTO) 0.1 10^3/uL (0.0-0.3); EOSINOPHILS % (AUTO) 1 % (0-10); HEMATOCRIT 31 % (35-52); HEMOGLOBIN 8.8 g/dL (11.5-16.0); LYMPHOCYTES # (AUTO) 2.2 10^3/uL (1.0-4.0); LYMPHOCYTES % (AUTO) 23 % (12-44); MEAN CORPUSCULAR HEMOGLOBIN 23 pg (25-34); MEAN CORPUSCULAR HGB CONC 28 g/dL (32-36); MEAN CORPUSCULAR VOLUME 81 fL (80-99); MEAN PLATELET VOLUME 9.4 fL (9.0-12.2); MONOCYTES # (AUTO) 0.6 10^3/uL (0.0-1.0); MONOCYTES % (AUTO) 6 % (0-12); NEUTROPHILS # (AUTO) 6.5 10^3/uL (1.8-7.8); NEUTROPHILS % (AUTO) 69 % (42-75); PLATELET COUNT 287 10^3/uL (130-400); TOTAL PROTEIN 7.1 GM/DL (6.4-8.2); WHITE BLOOD COUNT 9.3 10^3/uL (4.3-11.0)
[2021-11-03 12:28] LABS: BILIRUBIN,TOTAL 0.2 MG/DL (0.1-1.0); CARBON DIOXIDE 21 MMOL/L (21-32)
[2021-11-03 12:30] LABS: ALKALINE PHOSPHATASE 71 U/L (40-136); CREATININE SERUM 1.07 MG/DL (0.60-1.30); GFR ESTIMATED 58
[2021-11-03] MEDS ORDERED: ALPRAZolam 0.5 MG (XANAX) TAB PO SCH (12:30)
[2021-11-03 12:31] LABS: BUN/CREATININE RATIO 20
[2021-11-03 12:33] LABS: ALANINE AMINOTRANSFERASE 10 U/L (0-55); MAGNESIUM 1.8 MG/DL (1.6-2.4)
[2021-11-03 12:47] LABS: BILIRUBIN,URINE NEGATIVE (NEGATIVE); CLARITY,URINE CLEAR; COLOR,URINE YELLOW; GLUCOSE, URINE (UA) NEGATIVE (NEGATIVE); KETONES,URINE NEGATIVE (NEGATIVE); LEUKOCYTE ESTERASE ,URINE NEGATIVE (NEGATIVE); NITRITE,URINE NEGATIVE (NEGATIVE); PROTEIN,URINE NEGATIVE (NEGATIVE)
[2021-11-03 13:00] LABS: BACTERIA,URINE FEW /HPF; WBC,URINE 0-2 /HPF
--- NOTE | 2021-11-03 13:08 | Diagnostic Imaging Report ---
HISTORY: Hypertension, weakness and shortness of air. COMPARISON: 01/17/2016 TECHNIQUE: Frontal view of the chest FINDINGS: There is moderate cardiomegaly with mild central vascular congestion. No consolidation is seen. There is no pleural effusion or pneumothorax. IMPRESSION: 1. Moderate cardiomegaly with mild central vascular congestion. Dictated by: Dictated on workstation # [id number]
[2021-11-03] MEDS ORDERED: ALPRAZolam 0.5 MG (XANAX) TAB PO ONE (13:30)
[2021-11-03 14:15] VITALS: BP 137/56
== END 2021-11-03 14:15 | disposition home or self-care (01) ==
LOC: EDUNIT# 11:31 → ER 11:36
DX: E87.70 Fluid overload, unspecified (principal); E66.9 Obesity, unspecified; Z68.42 Body mass index [BMI] 45.0-49.9, adult
CPT/HCPCS: 36415; 71045; 80053; 81000; 83735; 83880; 84484; 85025; 85379; 86141; 93005; 93041

== ENCOUNTER → 2021-12-08 | Outpatient (CLI) | payer MEDICARE, OTHER ==
--- NOTE | 2021-12-08 18:36 | Diagnostic Imaging Report ---
HISTORY: Right neck mass COMPARISON: None TECHNIQUE: Ultrasound of the soft tissues of the right neck FINDINGS: The patient was unsure where the specific location of the neck mass was. General images of the soft tissues are obtained. Multiple lymph nodes were noted, which appear normal in size and morphology. These measured up to 3 mm in the short axis and up to 1.4 cm in length. No abnormal lymph nodes, masses or fluid collections are seen. IMPRESSION: 1. No abnormalities are seen in the soft tissues of the right neck. Dictated by: Dictated on workstation # [id number]
== END ==
LOC: RAD 12:22
PROVIDERS: ATTEND Nurse Practitioner Family
DX: R22.1 Localized swelling, mass and lump, neck (principal)
CPT/HCPCS: 76536

== ENCOUNTER → 2022-01-23 | Outpatient (CLI) | payer MEDICARE, OTHER ==
[~2022-01-23] MED LIST changes: +ALBU8.5H6 IH; -RT-ALBUINH IH
== END ==
LOC: CARD 11:30
PROVIDERS: ATTEND Internal Medicine Cardiovascular Disease
DX: I11.9 Hypertensive heart disease without heart failure (principal); Q21.12 Patent foramen ovale; I34.0 Nonrheumatic mitral (valve) insufficiency; I07.1 Rheumatic tricuspid insufficiency; I25.10 Atherosclerotic heart disease of native coronary artery without angina pectoris; Z98.2 Presence of cerebrospinal fluid drainage device
CPT/HCPCS: 93306

== ENCOUNTER → 2022-01-24 | Outpatient (CLI) | payer MEDICARE, OTHER ==
[~2022-01-24] MED LIST changes: +CATHETER FLUSH 10 ML SYR IVP PRN; +REGADENOSON 0.4 MG/5 ML SYR (LEXISCAN) IV ONE
[2022-01-24 13:25] VITALS: BP 150/64
--- NOTE | 2022-01-24 17:11 | Cardiology Stress Test Report ---
Stress Test Report Date of Procedure/Referring: Date of Procedure: Jan 24, 2022 PCP Duane [facility] - [facility] Admitting Physician Admitting Physician: Attending Physician: Tomas Martin MD Baseline Heart Rate: 55 Baseline Blood Pressure: Blood Pressure Systolic: 150 Blood Pressure Diastolic: 64 Baseline Vitals Vital Signs Date Time Temp Pulse Resp B/P (MAP) Pulse Ox O2 Delivery O2 Flow Rate FiO2 01/24/22 13:25 56 150/64 (92) Baseline EKG: Baseline EKG: NSR Summary After explaining the procedure to the patient, she signed a consent and then brought to the stress nuclear laboratory. Patient received 0.4 mg Lexiscan for stress test, ECG, heart rate and blood pressure were monitored continuously. Resting and stress dose of radio tracer were injected, imaging was acquired and reviewed in short axis, horizontal long axis and vertical long axis views. TID: 1.13 SSS: 13 SDS: 13 EF: 62 1. Patient tolerated Lexiscan well 2. Reversible ischemia involving the whole anterior wall and anterolateral wall 3. Normal left ventricular size, ejection fraction 62% TOMAS MARTIN MD Jan 24, 2022 17:11
== END ==
LOC: CARD 12:00
PROVIDERS: ATTEND Internal Medicine Cardiovascular Disease
DX: I10 Essential (primary) hypertension (principal); I25.10 Atherosclerotic heart disease of native coronary artery without angina pectoris; I25.89 Other forms of chronic ischemic heart disease
CPT/HCPCS: 78452; 93017

== ENCOUNTER 2022-02-07 11:00 | Day surgery (SDC) | payer MEDICARE, OTHER ==
[2022-02-07] VITALS (13 sets, daily range): BP systolic 97–152; BP diastolic 58–87
[~2022-02-07] VITALS: Ht 160 cm; Wt 123.2 kg
--- NOTE | 2022-02-07 09:50 | Diagnostic Imaging Report ---
INDICATION: Coronary artery disease. COMPARISON: 11/03/2021. FINDINGS: The lungs are clear. There is no effusion or pneumothorax. The heart size is stable. No overt failure. No change from the prior exam. IMPRESSION: Stable chest. Dictated by: Dictated on workstation # [id number]
[2022-02-07 09:54] LABS: HEMATOCRIT 31 % (35-52); HEMOGLOBIN 9.1 g/dL (11.5-16.0); MEAN CORPUSCULAR HEMOGLOBIN 24 pg (25-34); MEAN CORPUSCULAR HGB CONC 29 g/dL (32-36); MEAN CORPUSCULAR VOLUME 81 fL (80-99); MEAN PLATELET VOLUME 9.6 fL (9.0-12.2); PLATELET COUNT 310 10^3/uL (130-400); WHITE BLOOD COUNT 8.9 10^3/uL (4.3-11.0)
[2022-02-07 10:00] LABS: BILIRUBIN,URINE NEGATIVE (NEGATIVE); CLARITY,URINE CLEAR; COLOR,URINE YELLOW; GLUCOSE, URINE (UA) NEGATIVE (NEGATIVE); KETONES,URINE NEGATIVE (NEGATIVE); LEUKOCYTE ESTERASE ,URINE NEGATIVE (NEGATIVE); NITRITE,URINE NEGATIVE (NEGATIVE); PROTEIN,URINE NEGATIVE (NEGATIVE)
[2022-02-07 10:10] LABS: INR 0.9 (0.8-1.4); PROTHROMBIN TIME PATIENT 13.1 SEC (12.2-14.7)
[2022-02-07 10:11] LABS: BACTERIA,URINE TRACE /HPF; SQUAMOUS EPITHELIAL CELL,UR 0-2 /HPF; WBC,URINE RARE /HPF
[2022-02-07 10:22] LABS: ALBUMIN 3.9 GM/DL (3.2-4.5); BILIRUBIN,TOTAL 0.3 MG/DL (0.1-1.0); CALCIUM 9.3 MG/DL (8.5-10.1); CREATININE SERUM 0.94 MG/DL (0.60-1.30); POTASSIUM 4.1 MMOL/L (3.6-5.0); TOTAL PROTEIN 7.4 GM/DL (6.4-8.2)
--- NOTE | 2022-02-07 10:54 | Cardiac Procedure Note-CS/ASA ---
Pre-Procedure Note Pre-Op Procedure Note Date of Available H&P: Jan 25, 2022 Date H&P Reviewed: Feb 07, 2022 Time H&P Reviewed: 10:54 History & Physical: H&P Reviewed, Patient Examed, No changes noted Pre-Operative Diagnosis: CAD Conscious Sedation Pre-Proced Time 10:54 ASA Score 3 For ASA 3 and 4: Consider anesthesia and medical clearance. Also, for patients with a history of failed moderate sedation consider anesthesia. Airway Lungs Heart ASA score ASA 1: a normal healthy patient ASA 2: a patient with a mild systemic disease (mid diabetes, controlled hypertension, obesity ASA 3: a patient with a severe systemic disease that limits activity (angina, COPD, prior Myocardial infarction) ASA 4: a patient with an incapacitating disease that is a constant threat to life (CHF, renal failure) ASA 5: a moribund patient not expected to survive 24 hrs. (ruptured aneurysm) ASA 6: a declared brain- patient whose organs are being harvested. For emergent operations, add the letter E after the classification Mallampati Classification Grade 3 Sedation Plan Analgesia, Amnesia, Plan communicated to team members, Discussed options with patient/fam, Discussed risks with patient/fam The patient is an appropriate candidate to undergo the planned procedure, sedation, and anesthesia. The patient immediately re-assessed prior to indication. TOMAS RUVALCABA MD Feb 07, 2022 10:54
[~2022-02-07 11:00] MED LIST changes: +ASPI-1238 PO; -CATHETER FLUSH 10 ML SYR IVP PRN; +FLUO40CA12 PO; +HEParin (CATH LAB) 2,000 ML IV ONE; +LEVO50CA4 PO; +LIDOCAINE 1% INJ 30 ML (XYLOCAINE) VIAL ONE; +MIDAZOLAM 5 MG/5 ML (VERSED) VIAL ONE; +NS IV 1000 ML 1,000 ML IV ONE; +NS IV 1000 ML 1,000 ML IV SCH; +NS IV 1000 ML 1,000 ML ONE; +OXYM15MI4 NS; -REGADENOSON 0.4 MG/5 ML SYR (LEXISCAN) IV ONE; +fentaNYL INJ 100 MCG/2 ML AMP ONE
[2022-02-07] MEDS ORDERED: NS IV 1000 ML 1,000 ML IV SCH (11:15)
[2022-02-07] MEDS ORDERED: PATIENT MAY USE OWN MEDS, ALL PO SCH (11:15)
--- NOTE | 2022-02-07 11:17 | Discharge Inst-Post CATH ---
Discharge Inst-CATH/EP Problems Reviewed?: Yes Post Cardiac Cath/EP D/C Inst Follow Up/Plan Appointment with Dr. Martin's office in 2 to 4 weeks <b>CARDIAC CATH/EP PROCEDURE DISCHARGE INSTRUCTIONS</b> ACTIVITY * Go Home directly and rest. * Limit activity of the leg (or wrist if it was used) for 7 days including aer obics, swimming, jogging, bicycling, etc. * Restrict stair-climbing for 7 days if possible, if not, climb up with your non-cath leg, then bring together on the same step. * Avoid lifting, pushing, pulling or excessive movement of the affected extremi ty for 7 days. * Customary sexual activity may be resumed after 2 days-use caution not to use a position that strains or causes pain to the affected extremity. * No driving for 24 hours. * NO SMOKING. * Avoid straining for bowel movements for 7 days. * Gentle walking on level ground is allowed. * Returning to work will depend on the type of procedure and the results. Your doctor will discuss this with you. CALL YOUR DOCTOR FOR ANY OF THE FOLLOWING: *If bleeding from the puncture site occurs- Apply gentle pressure to site with clean cloth and call your doctor or EMS. * If a knot or lump forms under the skin, increases in size, or causes pain. * If bruising appears to be worsening or moving further down your leg instead of disappearing. * Temperature above 101 F. CARE OF YOUR GROIN INCISION; * Bruising or purple discoloration of the skin near the puncture site is common. * You may shower only, no bathtub bathing for 5 days. Be careful to avoid slipping as your leg may feel stiff. * If a closure device was used on your femoral artery, please see the attached guide regarding care of the device and your leg. * Leave dressing on FOR 24 hours. CARE OF YOUR WRIST INCISION; * Bruising or purple discoloration of the skin near the puncture site is common. * You may shower. * DO NOT submerge wrist. * Leave dressing on FOR 24 hours. TOMAS MARTIN MD Feb 07, 2022 11:17
--- NOTE | 2022-02-07 11:20 | Cardiac Cath Report ---
Cardiac Cath Report Physician (s)/Boiler/Chiller Operator (s) Physician TOMAS RUVALCABA MD Pre-Procedure Diagnosis Pre-Procedure Diagnosis: CAD Post-Procedure Note Procedure Start Date: Feb 07, 2022 Name of Procedure: Left heart catheterization Findings/Procedure Note PROCEDURE NOTE: 66-year-old lady with history of hypertension, hyperlipidemia, had an abnormal stress test, scheduled for cardiac catheterization possible PTCA. After explaining the procedure to the patient, all pros and cons were explained, all questions were answered. The patient signed the consent and then she was placed in the cardiac catheterization laboratory. Groin was prepped in SL fashion local anesthesia was used. Sheath placed in the right femoral artery. Yanci' right and left catheter were used to access the coronary system. Yanci right catheter was prolapsed to the left ventricular cavity, pressure was measured. Pullback LV to aorta was done. At the end of the procedure the sheath was removed. Closure device was deployed FINDINGS: Hemodynamics LV 131/12, end-diastolic pressure of 12 Aorta 123/50 mean of 74 ANATOMY: Left Main is almost separate ostium of the LAD and circumflex artery. No obstructive disease Left Anterior Descending is moderate in size slightly tortuous artery with mild disease up to 20% stenosis nonobstructive disease Left Circumflex is dominant artery with no significant obstructive disease Right Coronary Artery is a small nondominant artery with no obstructive disease LV Gram was not done, pressure was measured CONCLUSION: 1. Dominant circumflex artery with mild coronary artery disease nonobstructive disease 2. Normal left ventricular end-diastolic pressure DISCUSSION AND RECOMMENDATION: Medical therapy is recommended no intervention is warranted Anesthesia Type: Conscious Sedation Estimated blood loss (mL): 15 ml Contrast Amount: 45 ml Total Radiation Dose: 352 mGy Post-Procedure Diagnosis Post-operative diagnosis: Chest pain Coronary artery disease Hypertension Hyperlipidemia TOMAS RUVALCABA MD Feb 07, 2022 11:20
== END 2022-02-07 16:25 | disposition home or self-care (01) ==
LOC: CATH 11:00 → CSD 11:25 → CATH 16:25
PROVIDERS: ATTEND Internal Medicine Cardiovascular Disease
DX: I25.10 Atherosclerotic heart disease of native coronary artery without angina pectoris (principal); I10 Essential (primary) hypertension; E66.01 Morbid (severe) obesity due to excess calories; E03.9 Hypothyroidism, unspecified; K21.9 Gastro-esophageal reflux disease without esophagitis; D50.9 Iron deficiency anemia, unspecified; M19.90 Unspecified osteoarthritis, unspecified site; I65.23 Occlusion and stenosis of bilateral carotid arteries; E78.2 Mixed hyperlipidemia; F41.9 Anxiety disorder, unspecified; F32.9 Major depressive disorder, single episode, unspecified; K58.9 Irritable bowel syndrome, unspecified; Z68.42 Body mass index [BMI] 45.0-49.9, adult
CPT/HCPCS: 71045; 80053; 80061; 81000; 85027; 85610; 85730; 87081; 93005; 93458; C1760; C1894; 36415

== ENCOUNTER 2022-05-30 17:02 | Emergency (ER) | payer MEDICARE, OTHER ==
[~2022-05-30] VITALS: Ht 160 cm; Wt 139.0 kg
[~2022-05-30 17:02] MED LIST changes: -HEParin (CATH LAB) 2,000 ML IV ONE; -LIDOCAINE 1% INJ 30 ML (XYLOCAINE) VIAL ONE; -MIDAZOLAM 5 MG/5 ML (VERSED) VIAL ONE; -NS IV 1000 ML 1,000 ML IV ONE; -NS IV 1000 ML 1,000 ML IV SCH; -NS IV 1000 ML 1,000 ML ONE; -fentaNYL INJ 100 MCG/2 ML AMP ONE
--- NOTE | 2022-05-30 17:44 | ED Cardiac General ---
History of Present Illness General Chief Complaint: Cardiac/General Problems Stated Complaint: HEART ISSUES/FLUID ON HEART Nursing Triage Note: SENT OVER FROM 'S OFFICE WITH FLUID AROUND HER HEART. Source: patient History of Present Illness Date Seen by Provider: May 30, 2022 Time Seen by Provider: 17:45 Initial Comments PT ARRIVES VIA POV FROM HOME WITH FAMILY PT HAS HAD A NON-PRODUCTIVE COUGH SINCE Saturday05/28/22 NO FEVER HAD CHEST TIGHTNESS THIS MORNING --NOT NOW SHE IS CHRONICALLY SHORT OF BREATH, BUT HAS BEEN WORSE FOR THE LAST 2-3 DAYS NO CHANGE IN CHRONIC LEG SWELLING SHE WENT TO [facility] THIS MORNING AND HAD A CXR SHE STATES THEY TOLD HER SHE HAD FLUID ON HER HEART AND TOLD HER TO COME HERE, SO SHE ARRIVES TONIGHT. SHE STATES THEY GAVE HER A SHOT OF ANTIBIOTIC AND GAVE HER A PRESCRIPTION OF ANTIBIOTICS WELL--LEVAQUIN. SHE ALSO WAS GIVEN A NAUSEA MEDICATION, BECAUSE SHE COUGHED AND THEN VOMITED UP HER MORNING MEDICATIONS. NO HEMATEMESIS OR COFFEE-GROUND EMESIS. SHE HAS HAD COVID VACCINE X 3, AND FLU VACCINE FOR THIS SEASON SHE HAS HTN AND OBESITY, DENIES ANY HISTORY OF HEART PROBLEMS, SHE DENIES ANY OTHER MEDICAL PROBLEMS SHE IS NOT ON ASPIRIN OR BLOOD THINNERS. STATES SHE HAS BEEN ANEMIC IN THE PAST, AND HAS HAD BLOOD TRANSFUSIONS. FELT TO BE GI SOURCE. SHE IS NOT ON ANY GI MEDICATIONS . SHE DENIES ANY BLACK/BLOODY/TARRY STOOLS SHE HAD A CARDIAC CATH 02/07/[address] RUVALCABA: CONCLUSION: 1. Dominant circumflex artery with mild coronary artery disease nonobstructive disease 2. 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 RUVALCABA Allergies and Home Medications Allergies Coded Allergies: amoxicillin (Verified Allergy, Unknown, 11/03/21) clavulanic acid (Verified Allergy, Unknown, 11/03/21) Patient Home Medication List Home Medication List Reviewed: Yes Albuterol Sulfate (Ventolin Hfa) 1 Puff Puff, 2 PUFF IH Q4H PRN for SHORTNESS OF BREATH, (Reported) Entered as Reported by: MIGUEL ARIAS on 10/28/18 1058 Aspirin (Aspirin EC) 81 Mg Tablet., 81 MG PO DAILY, (Reported) Entered as Reported by: LAURENT ZAVALETA on 02/07/22 0953 Budesonide/Formoterol Fumarate (Symbicort 160-4.5 Mcg Inhaler) 10.2 Gm Hfa.aer.ad, 2 PUFF IH BID, (Reported) Entered as Reported by: MIGUEL ARIAS on 10/28/18 105 Dicyclomine HCl (Dicyclomine HCl) 20 Mg Tablet, 20 MG PO QID PRN for STOMACH UPSET, (Reported) Entered as Reported by: MIGUEL ARIAS on 10/28/18 105 Diphenhydramine HCl (Sleep-Aid) 25 Mg Capsule, 25 MG PO HS PRN for SLEEP, (Reported) Entered as Reported by: MIGUEL ARIAS on 10/28/18 105 Fluoxetine HCl (Prozac) 40 Mg Capsule, 80 MG PO DAILY, (Reported) Entered as Reported by: LAURENT ZAVALETA on 02/07/22 09 Furosemide (Furosemide) 20 Mg Tablet, 20 MG PO DAILY, (Reported) Entered as Reported by: LAURENT ZAVALETA on 02/07/22 09 Hydrocodone Bit/Acetaminophen (Lortab 5 Mg Tablet) 1 Each Tablet, 1 TAB PO TID PRN for PAIN-MODERATE, (Reported) Entered as Reported by: MIGUEL ARIAS on 10/28/18 105 Levothyroxine Sodium (Levothyroxine) 50 Mcg Capsule, 50 MCG PO DAILY, (Reported) Entered as Reported by: LAURENT ZAVALETA on 02/07/22 09 Lisinopril (Lisinopril) 40 Mg Tablet, 20 MG PO DAILY, (Reported) Entered as Reported by: NATASHA GEIGER on 11/15/16 0944 Loperamide HCl (Imodium A-D) 2 Mg Tablet, 10 MG PO BID PRN for DIARRHEA, (Reported) Entered as Reported by: MIGUEL ARIAS on 10/28/18 105 Magnesium Oxide (Magnesium) 400 Mg Tablet, 400 MG PO HS, (Reported) Entered as Reported by: MIGUEL ARIAS on 10/28/18 105 Melatonin (Melatonin) 5 Mg Capsule, 5 MG PO HS, (Reported) Entered as Reported by: MIGUEL ARIAS on 10/28/18 105 Omeprazole Magnesium (Prilosec Otc) 20 Mg Tablet.dr, 20 MG PO DAILY PRN for HEARTBURN, (Reported) Entered as Reported by: MIGUEL ARIAS on 10/28/18 1058 Oxymetazoline HCl (Afrin) 0.05 % Mist, 15 ML NS DAILY, (Reported) Entered as Reported by: LAURENT ZAVALETA on 02/07/22 0953 Pantoprazole Sodium (Protonix) 40 Mg Tablet.dr, 40 MG PO DAILY Prescribed by: JONATHAN ARCE on 05/30/222109 Review of Systems Review of Systems Constitutional: no symptoms reported Respiratory: See HPI, Cough, Orthopnea, Shortness of Air Cardiovascular: See HPI, Chest Pain, Edema; Denies Lightheadedness, Denies Palpitations, Denies Syncope Gastrointestinal: No Symptoms Reported Genitourinary: No Symptoms Reported Musculoskeletal: back pain (BACK HURTS WITH COUGHING) Skin: no symptoms reported Psychiatric/Neurological: No Symptoms Reported Endocrine: No Symptoms Reported Hematologic/Lymphatic: No Symptoms Reported Past Xeyrxwq-Cggsvz-Rhrlnc Hx Patient Social History Tobacco Use?: No Substance use?: No Alcohol Use?: Yes Alcohol Frequency: Once in a while Immunizations Up To Date Tetanus Booster (TDap): Unknown First/Initial COVID19 Vaccinat: UNKNOWN Second COVID19 Vaccination Nico: UNKNOWN Third COVID19 Vaccination Date: UNKNOWN COVID19 Vaccine 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 Seasonal Allergies Seasonal Allergies: No Past Medical History Surgery/Hospitalization HX: HTN, diabetes, Surgeries: Yes (RIGHT FOOT, RIGHT WRIST, LEFT KNEE SCOPE; CARDIAC CATH) Orthopedic Respiratory: Yes (CHRONIC DYSPNEA) Currently Using CPAP: No Currently Using BIPAP: No Cardiac: Yes Chronic Edema/Swelling, Hypertension 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 PULLIAM FOR ANEMIA CARDIAC CATH 02/07/[address] RUVALCABA: CONCLUSION: 1. Dominant circumflex artery with mild coronary artery disease nonobstructive disease 2. Normal left ventricular end-diastolic pressure Physical Exam Vital Signs Vital Signs - First Documented 05/30/22 05/30/22 17:21 19:48 Temp 36.1 Pulse 97 Resp 16 B/P (MAP) 153/60 (91) Pulse Ox 95 O2 Delivery Room Air Capillary Refill : Less Than 3 Seconds Height, Weight, BMI Height: 5'0.00" Weight: 265lbs. 5.0oz. 120.600782fp; 54.00 BMI Method:Stated General Appearance: No Apparent Distress, WD/WN, Obese, Other (DOES NOT APPEAR ILL OR TO BE IN ANY DISCOMFORT OR DISTRESS. 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 Norm as Tested Skin: Normal Color, Warm/Dry Progress/Results/Core Measures Results/Orders Lab Results Laboratory Tests Test 05/30/22 18:08 Range/Units White Blood Count 10.6 4.3-11.0 10^3/uL Red Blood Count 3.34 L 3.80-5.11 10^6/uL Hemoglobin 7.1 L 11.5-16.0 g/dL Hematocrit 26 L 35-52 % Mean Corpuscular Volume 78 L 80-99 fL Mean Corpuscular Hemoglobin 21 L 25-34 pg Mean Corpuscular Hemoglobin Concent 27 L 32-36 g/dL Red Cell Distribution Width 17.3 H 10.0-14.5 % Platelet Count 272 130-400 10^3/uL Mean Platelet Volume 10.1 9.0-12.2 fL Immature Granulocyte % (Auto) 1 % Neutrophils (%) (Auto) 76 H 42-75 % Lymphocytes (%) (Auto) 15 12-44 % Monocytes (%) (Auto) 7 0-12 % Eosinophils (%) (Auto) 1 0-10 % Basophils (%) (Auto) 0 0-10 % Neutrophils # (Auto) 8.1 H 1.8-7.8 10^3/uL Lymphocytes # (Auto) 1.6 1.0-4.0 10^3/uL Monocytes # (Auto) 0.7 0.0-1.0 10^3/uL Eosinophils # (Auto) 0.1 0.0-0.3 10^3/uL Basophils # (Auto) 0.0 0.0-0.1 10^3/uL Immature Granulocyte # (Auto) 0.1 0.0-0.1 10^3/uL Prothrombin Time 13.6 12.2-14.7 SEC INR Comment 1.0 0.8-1.4 Activated Partial Thromboplast Time 22 L 24-35 SEC Sodium Level 143 135-145 MMOL/L Potassium Level 4.2 3.6-5.0 MMOL/L Chloride Level 108 H 98-107 MMOL/L Carbon Dioxide Level 23 21-32 MMOL/L Anion Gap 12 5-14 MMOL/L Blood Urea Nitrogen 16 7-18 MG/DL Creatinine 0.87 0.60-1.30 MG/DL Estimat Glomerular Filtration Rate 74 BUN/Creatinine Ratio 18 Glucose Level 107 H 70-105 MG/DL Calcium Level 8.9 8.5-10.1 MG/DL Corrected Calcium 9.2 8.5-10.1 MG/DL Magnesium Level 1.9 1.6-2.4 MG/DL Total Bilirubin 0.3 0.1-1.0 MG/DL Aspartate Amino Transf (AST/SGOT) 18 5-34 U/L Alanine Aminotransferase (ALT/SGPT) 14 0-55 U/L Alkaline Phosphatase 68 40-136 U/L Troponin I < 0.028 <0.028 NG/ML B-Type Natriuretic Peptide 93.3 <100.0 PG/ML Total Protein 7.0 6.4-8.2 GM/DL Albumin 3.6 3.2-4.5 GM/DL Influenza Type A (RT-PCR) Not Detected Not Detecte Influenza Type B (RT-PCR) Not Detected Not Detecte SARS-CoV-2 RNA (RT-PCR) Not Detected Not Detecte My Orders Orders - JONATHAN ARCE DO Ed Iv/Invasive Line Start (05/30/22 17:44) Ekg Tracing (05/30/22 17:44) O2 (05/30/22 17:44) Monitor-Rhythm Ecg Trace Only (05/30/22 17:44) Bnp Berenice (05/30/22 17:44) Cbc With Automated Diff (05/30/22 17:44) Comprehensive Metabolic Panel (05/30/22 17:44) Magnesium (05/30/22 17:44) Protime With Inr (05/30/22 17:44) Partial Thromboplastin Time (05/30/22 17:44) Troponin I [place] (05/30/22 17:44) Chest 1 View, Ap/Pa Only (05/30/22 17:44) Covid 19 Inhouse Test (05/30/22 17:52) Influenza A And B By Pcr (05/30/22 17:52) Isolation Central Supply Req (05/30/22 17:52) Aspirin Chewable Tablet (Baby Aspirin Ch (05/30/22 18:00) Red Cells Leukocytes Reduced (05/30/22 18:49) Type And Screen (05/30/22 18:49) Ns (Ivpb) (Sodium Chloride 0.9%) (05/30/22 19:45) Medications Given in ED Current Medications Medications Dose Ordered Sig/Moe Route Start Time Stop Time Status Last Admin Dose Admin Aspirin 324 mg ONCE ONCE PO 05/30/22 18:00 05/30/22 18:01 DC 05/30/22 18:07 324 MG Vital Signs/I&O 05/30/22 05/30/22 05/30/22 05/30/22 17:21 17:31 17:54 18:04 Temp 36.1 36.1 Pulse 97 81 77 Resp 16 18 17 B/P (MAP) 153/60 (91) 173/72 (105) Pulse Ox 95 100 100 100 05/30/22 05/30/22 05/30/22 05/30/22 18:59 19:48 20:03 21:03 Temp 37.0 36.7 36.8 Pulse 70 73 75 75 Resp 18 16 16 18 B/P (MAP) 110/84 (93) 132/63 123/67 138/60 Pulse Ox 99 95 95 95 O2 Delivery Room Air Room Air Room Air Blood Pressure Mean: 105 Progress Progress Note : Progress Note PPE WORN COVID AND FLU TESTING DONE. GIVEN: -ASPIRIN -BLOOD TRANSFUSION O2 SATS VARIABLE FROM 90-100% ON ROOM AIR ON ARRIVAL PT IS NOT DYSPNEIC AT THIS TIME NO FEVER NO CHEST PAIN COMPLAINTS FOR ENTIRE ER STAY VITALS STABLE NO EVIDENCE OF PNEUMONIA OR CHF, OR ACUTE CORONARY SYNDROME. PT IS ANEMIC AND SUSPECT THIS IS CAUSE FOR HER DYSPNEA PT HAD A CARDIAC CATH IN JANUARY 2022 SHOWING ONLY MILD NON-OBSTRUCTIVE DISEASE. NO EVIDENCE OF TRANSFUSION REACTION REVIEWED PRIOR RECORDS, ER VISITS, ADMITS/H&P'S/CONSULTS/DISCHARGE SUMMARIES, TESTS/PROCEDURES DISCUSSED TEST RESULTS, ANTICIPATED COURSE, MEDICATIONS, NEED FOR FOLLOW UP WITH DR. PULLIAM AND HER PCP, RETURN PRECAUTIONS. Initial ECG Impression Date: May 30, 2022 Initial ECG Impression Time: 18:39 Initial ECG Rate: 76 Initial ECG Rhythm: Normal Sinus Initial ECG Intervals: Normal Initial ECG Impression: Normal Initial ECG Comparisson: Unchanged Comment INTERPRETED BY ME Diagnostic Imaging Comments CXR--PER RADIOLOGIST REPORT AT 1822 FINDINGS: Heart is mildly enlarged. Pulmonary vascularity is unremarkable. There is no evidence of pneumothorax or consolidation. No significant pleural fluid is seen. Overall, findings have remained stable. IMPRESSION: Mild cardiomegaly without other acute abnormality. Reviewed: Reviewed by Me Departure Communication (Admissions) 1849--SPOKE WITH DR. LA, AGREES WITH GIVING A UNIT OF BLOOD HERE TONIGHT, DISMISSING AND FOLLOW UP WITH DR. PULLIAM IN CLINIC TOMORROW, HE HAD DONE HER PREVIOUS ENDOSCOPIES Impression Primary Impression: Anemia Additional Impression: Bronchitis Disposition: 01 HOME, SELF-CARE Condition: Stable Departure-Patient Inst. Decision time for Depature: 21:07 Referrals: [facility] (PCP) Primary Care Physician [facility] ([place]) Primary Care Physician JEANNIE PULLIAM DO Patient Instructions: Acute Bronchitis, Adult (DC), Chest Pain (DC), Normocytic Normochromic Anemia (DC) Add. Discharge Instructions: NO ASPIRIN OR ANTI-INFLAMMATORIES FOLLOW UP WITH DR. PULLIAM TOMORROW--CALL OFFICE IN THE MORNING FOR APPOINTMENT TIME TAKE LEVAQUIN PRESCRIBED FOLLOW UP WITH YOUR REGULAR DR NEXT WEEK FOR FURTHER CARE--CALL IN THE MORNING TO SCHEDULE AN APPOINTMENT RETURN TO ER IF SYMPTOMS WORSEN All discharge instructions reviewed with patient and/or family. Voiced understanding. Scripts Pantoprazole Sodium (Protonix) 40 Mg Tablet. 40 MG PO DAILY, #15 TAB Prov: JONATHAN ARCE DO 05/30/22 JONATHAN ARCE DO May 30, 2022 17:44
[2022-05-30] MEDS ORDERED: ASPIRIN 81 MG CHEW (CHILDREN'S ASA) PO ONE (18:00)
[2022-05-30 18:14] LABS: BASOPHILS % (AUTO) 0 % (0-10); EOSINOPHILS # (AUTO) 0.1 10^3/uL (0.0-0.3); EOSINOPHILS % (AUTO) 1 % (0-10); HEMATOCRIT 26 % (35-52); HEMOGLOBIN 7.1 g/dL (11.5-16.0); LYMPHOCYTES # (AUTO) 1.6 10^3/uL (1.0-4.0); LYMPHOCYTES % (AUTO) 15 % (12-44); MEAN CORPUSCULAR HEMOGLOBIN 21 pg (25-34); MEAN CORPUSCULAR HGB CONC 27 g/dL (32-36); MEAN CORPUSCULAR VOLUME 78 fL (80-99); MEAN PLATELET VOLUME 10.1 fL (9.0-12.2); MONOCYTES # (AUTO) 0.7 10^3/uL (0.0-1.0); MONOCYTES % (AUTO) 7 % (0-12); NEUTROPHILS # (AUTO) 8.1 10^3/uL (1.8-7.8); NEUTROPHILS % (AUTO) 76 % (42-75); PLATELET COUNT 272 10^3/uL (130-400); WHITE BLOOD COUNT 10.6 10^3/uL (4.3-11.0)
--- NOTE | 2022-05-30 18:15 | Diagnostic Imaging Report ---
INDICATION: Dyspnea. EXAMINATION: Portable AP view of the chest was obtained. COMPARISON: Study of 02/07/2022. FINDINGS: Heart is mildly enlarged. Pulmonary vascularity is unremarkable. There is no evidence of pneumothorax or consolidation. No significant pleural fluid is seen. Overall, findings have remained stable. IMPRESSION: Mild cardiomegaly without other acute abnormality. Dictated by: Dictated on workstation # [id number]
[2022-05-30 18:22] LABS: ALBUMIN 3.6 GM/DL (3.2-4.5)
[2022-05-30 18:23] LABS: CHLORIDE 108 MMOL/L (98-107); POTASSIUM 4.2 MMOL/L (3.6-5.0); PROTHROMBIN TIME PATIENT 13.6 SEC (12.2-14.7); SODIUM 143 MMOL/L (135-145)
[2022-05-30 18:24] LABS: CALCIUM 8.9 MG/DL (8.5-10.1)
[2022-05-30 18:25] LABS: GLUCOSE 107 MG/DL (70-105)
[2022-05-30 18:26] LABS: CARBON DIOXIDE 23 MMOL/L (21-32)
[2022-05-30 18:27] LABS: BILIRUBIN,TOTAL 0.3 MG/DL (0.1-1.0)
[2022-05-30 18:28] LABS: ALKALINE PHOSPHATASE 68 U/L (40-136)
[2022-05-30 18:29] LABS: CREATININE SERUM 0.87 MG/DL (0.60-1.30); GFR ESTIMATED 74
[2022-05-30 18:30] LABS: BUN/CREATININE RATIO 18
[2022-05-30 18:32] LABS: ALANINE AMINOTRANSFERASE 14 U/L (0-55); MAGNESIUM 1.9 MG/DL (1.6-2.4)
[2022-05-30] MEDS ORDERED: NS (IVPB) 250 ML ONE (19:45)
[2022-05-30 19:48] VITALS: BP 132/63
[2022-05-30 20:03] VITALS: BP 123/67
[2022-05-30 21:03] VITALS: BP 138/60
[2022-05-30] MEDS ORDERED: PANT40TA2 PO (21:10)
== END 2022-05-30 21:28 | disposition home or self-care (01) ==
LOC: EDUNIT# 17:02 → ER 17:03
DX: D64.9 Anemia, unspecified (principal); J40 Bronchitis, not specified as acute or chronic; E66.01 Morbid (severe) obesity due to excess calories; Z68.43 Body mass index [BMI] 50.0-59.9, adult; Z20.822 Contact with and (suspected) exposure to COVID-19
CPT/HCPCS: 36430; 71045; 80053; 83735; 83880; 84484; 85025; 85610; 85730; 86850; 86900; 86901; 86920; 87636; 93005; 93041; 99285; P9016; 36415

== ENCOUNTER 2022-06-06 05:49 | Outpatient (CLI) | payer MEDICARE, OTHER ==
[~2022-06-06] VITALS: Ht 160 cm; Wt 123.8 kg
[~2022-06-06 05:49] MED LIST changes: +PANT40TA2 PO
== END 2022-06-06 09:04 | disposition home or self-care (01) ==
LOC: PREOP 05:49
PROVIDERS: ATTEND Surgery
DX: Z01.818 Encounter for other preprocedural examination (principal)

== ENCOUNTER 2022-06-11 07:16 | Day surgery (SDC) | payer MEDICARE, OTHER ==
[~2022-06-11] VITALS: Ht 160 cm; Wt 123.8 kg
[2022-06-11] MEDS ORDERED: LACTATED RINGERS 1,000 ML IV STA (07:21)
[2022-06-11] MEDS ORDERED: HURRICAINE EXT TUBE (BENZOCAINE) XX PRN (07:30)
[2022-06-11 07:35] VITALS: BP 154/64
[2022-06-11] MEDS ORDERED: PROPOFOL INJECTION 0 ML IV ONE (08:11)
[2022-06-11] MEDS ORDERED: MIDAZOLAM 2 MG/2 ML (VERSED) VIAL ONE (08:11)
[2022-06-11] MEDS ORDERED: proPOfol 200 MG/20 ML (DIPRIVAN) VIAL IV ONE (08:11)
--- NOTE | 2022-06-11 08:30 | Progress Note-Pre Operative ---
Pre-Operative Progress Note Date of Available H&P: May 31, 2022 Date H&P Reviewed: Jun 11, 2022 Time H&P Reviewed: 08:26 History & Physical: H&P Reviewed, Patient Examed, No changes noted Pre-Operative Diagnosis: Anemia JEANNIE PULLIAM DO Jun 11, 2022 08:30
[2022-06-11 08:45] VITALS: BP 135/62
--- NOTE | 2022-06-11 08:49 | Endoscopy Discharge Instruct ---
Endo Procedure/Findings Findings 1.: Gastritis 2.: Hiatal Hernia Discharge Instructions - Activity: You might feel a little sleepy until tomorrow. This is due to the medicine you received to relax you. Until tomorrow, you should: NOT drive a car, operate machinery or power tools. NOT drink any alcoholic beverages. NOT make any important decisions or sign importortant papers. Do not return to work until tomorrow, unless otherwise instructed. Resume previous activities tomorrow. Diet: Start by taking liquids. If you tolerate liquids, advance to solid food. 1.: EGD in 3 years Notify Physician - If you experience excessive bleeding, unusual abdominal pain, fever, or chest pain, contact your doctor immediately. Follow-Up: Other Follow up in my office in one week JEANNIE PULLIAM DO Jun 11, 2022 08:49
--- NOTE | 2022-06-11 08:49 | Progress Note-Post Operative ---
Post-Operative Progess Note Surgeon (s)/Dye Range Tender (s) Surgeon JEANNIE PULLIAM DO Dye Range Tender: none Pre-Operative Diagnosis Anemia Post-Operative Diagnosis Gastritis ??pyloric stenosis Hiatal hernia Procedure & Operative Findings Date of Procedure 06/11/22 Procedure Performed/Findings EGD with biopsy PROCEDURE NOTE: After informed consent was obtained, the patient was brought to the endoscopy suite, placed in bed in left lateral decubitus position. She was administered IV sedation by the FIRE ASSISTANT who then monitored vitals the entire time, heart rate, blood pressure and pulse ox and the scope was inserted down the mouth through the esophagus (which appeared to be very tortuous) and into the stomach. Pushed into the stomach, pushed past the antrum to the Pylorus which looked small and it was very hard to get into the duodenum. Finally able to get past the pylorus and duodenum looked good. Pulled back and did a biopsy of the antrum, then retroflexed the scope, saw large hiatal hernia (and what looked like a wrap of stomach), took a picture of this and then pulled the scope into the GE junction. I took another picture of the hiatal hernia but had a really hard time finding the GE junction because she was coughing and elected not to do a biopsy here. Pushed the scope back into the stomach, suctioned all the air out of the stomach. At this point pulled the scope up the esophagus and out the mouth. The patient tolerated the procedure, and she recovered in endoscopy suite. Anesthesia Type IV sedation by FIRE ASSISTANT Estimated Blood Loss Estimated blood loss (mL): scant Specimens/Packing Specimens Removed antral bx upper stomach bx JEANNIE PULLIAM DO Jun 11, 2022 08:48
[2022-06-11 09:15] VITALS: BP 135/62
--- NOTE | 2022-06-11 11:37 | Anesthesia-General Post-Op ---
MAC Patient Condition Mental Status/LOC: Same as Preop Cardiovascular: Satisfactory Nausea/Vomiting: Absent Respiratory: Satisfactory Pain: Controlled Complications: Absent Post Op Complications Complications None Follow Up Care/Instructions Patient Instructions None needed. Anesthesiology Discharge Order Discharge Order Patient is doing well, no complaints, stable vital signs, no apparent adverse anesthesia problems. No complications reported per nursing. ELVIRA MCRAE CRNA Jun 11, 2022 11:37
== END 2022-06-11 09:15 | disposition home or self-care (01) ==
LOC: ENDO 07:16
PROVIDERS: ATTEND Surgery
DX: K29.70 Gastritis, unspecified, without bleeding (principal); K44.9 Diaphragmatic hernia without obstruction or gangrene; D50.9 Iron deficiency anemia, unspecified; K31.89 Other diseases of stomach and duodenum; E66.01 Morbid (severe) obesity due to excess calories; Z68.42 Body mass index [BMI] 45.0-49.9, adult

== ENCOUNTER 2022-06-24 14:51 | Emergency (ER) | payer MEDICARE, OTHER ==
[~2022-06-24] VITALS: Ht 155 cm; Wt 123.4 kg
[2022-06-24] MEDS ORDERED: ONDANSETRON 4 MG (ZOFRAN) ORAL DISSOLVE TAB SL STA (15:40)
[2022-06-24] MEDS ORDERED: LOPERAMIDE 2 MG (IMODIUM) TABLET PO STA (16:11)
--- NOTE | 2022-06-24 16:14 | ED GI ---
General Chief Complaint: Abdominal/GI Problems Stated Complaint: NAUSEA Nursing Triage Note: PT AMB TO ED BY POV WITH C/O N/V/D BEGINNING AROUND 2200 LAST NIGHT. PT DENIES ANY ABD PAIN. REPORTS DAUGTHER AND GRANDDAUGHTER HAD GI BUG LAST WEEK. PT REPORTS SHE HAS CHRONIC DIARRHEA, BUT HAS INCREASED SINCE LAST NIGHT. (TRENA DONAHUE) History of Present Illness Date Seen by Provider: June 24, 2022 Time Seen by Provider: 15:10 Initial Comments 66 year old female presents with nausea, vomiting, and diarrhea that began last evening at approximately 2200. She reports family members have had similar sym ptoms but she was not around them. She ate at [email or web address] last evening and her has had similar symptoms. She reports chronic diarrhea however she thinks it has been worse over the last 12 to 24 hours. She last took Zofran at 2330 and no immodium since yesterday afternoon. She had 3 episodes of vomiting today, denies eating anything, she has tried sips of water and sprite. Timing/Duration: 12-24 Hours Severity/Quality: Moderate Associated Symptoms: No Back Pain, No Chest Pain, No Diaphoresis, No Fever/Chills, No Fatigue, No Headache, No Heartburn; Nausea/Vomiting; No Shortness of Air, No Swelling/Mass in Abdomen, No Syncope, No Weakness (TRENA DONAHUE) Allergies and Home Medications Allergies Coded Allergies: amoxicillin (Verified Allergy, Unknown, 11/03/21) clavulanic acid (Verified Allergy, Unknown, 11/03/21) Patient Home Medication List Home Medication List Reviewed: Yes (TRENA DONAHUE) Albuterol Sulfate (Ventolin Hfa) 1 Puff Puff, 2 PUFF IH Q4H PRN for SHORTNESS OF BREATH, (Reported) Entered as Reported by: MIGUEL ARIAS on 10/28/18 1058 Budesonide/Formoterol Fumarate (Symbicort 160-4.5 Mcg Inhaler) 10.2 Gm Hfa.aer.ad, 2 PUFF IH BID, (Reported) Entered as Reported by: MIGUEL ARIAS on 10/28/18 1058 Dicyclomine HCl (Dicyclomine HCl) 20 Mg Tablet, 20 MG PO QID PRN for STOMACH UPSET, (Reported) Entered as Reported by: MIGUEL ARIAS on 10/28/18 1058 Diphenhydramine HCl (Sleep-Aid) 25 Mg Capsule, 25 MG PO HS PRN for SLEEP, (Reported) Entered as Reported by: MIGUEL ARIAS on 10/28/18 105 Fluoxetine HCl (Prozac) 40 Mg Capsule, 80 MG PO DAILY, (Reported) Entered as Reported by: LAURENT ZAVALETA on 02/07/22 0953 Furosemide (Furosemide) 20 Mg Tablet, 20 MG PO DAILY, (Reported) Entered as Reported by: LAURENT ZAVALETA on 02/07/22 09 Hydrocodone Bit/Acetaminophen (Lortab 5 Mg Tablet) 1 Each Tablet, 1 TAB PO TID PRN for PAIN-MODERATE, (Reported) Entered as Reported by: MIGUEL ARIAS on 10/28/18 105 Levothyroxine Sodium (Levothyroxine) 50 Mcg Capsule, 50 MCG PO DAILY, (Reported) Entered as Reported by: LAURENT ZAVALETA on 02/07/22 09 Lisinopril (Lisinopril) 40 Mg Tablet, 20 MG PO DAILY, (Reported) Entered as Reported by: NATASHA GEIGER on 11/15/16 0944 Magnesium Oxide (Magnesium) 400 Mg Tablet, 400 MG PO HS, (Reported) Entered as Reported by: MIGUEL ARIAS on 10/28/18 105 Melatonin (Melatonin) 5 Mg Capsule, 5 MG PO HS, (Reported) Entered as Reported by: MIGUEL ARIAS on 10/28/18 105 Nitrofurantoin Monohyd/M-Cryst (Macrobid 100 mg Capsule) 100 Mg Capsule, 1 TAB PO BID Prescribed by: TRENA DONAHUE on 06/24/22 164 Omeprazole Magnesium (Prilosec Otc) 20 Mg Tablet.dr, 20 MG PO DAILY PRN for HEARTBURN, (Reported) Entered as Reported by: MIGUEL ARIAS on 10/28/18 105 Ondansetron (Ondansetron Odt) 4 Mg Tab.rapdis, 4 MG PO Q6H PRN for NAUSEA/VOMITING Prescribed by: TRENA DONAHUE on 06/24/22 164 Oxymetazoline HCl (Afrin) 0.05 % Mist, 15 ML NS DAILY, (Reported) Entered as Reported by: LAURENT ZAVALETA on 02/07/22 0953 Review of Systems Review of Systems Constitutional: no symptoms reported, see HPI Gastrointestinal: See HPI; Denies Abdominal Pain; Diarrhea, Nausea, Poor Appetite, Poor Fluid Intake, Vomiting (TRENA DONAHUE) All Other Systems Reviewed Negative Unless Noted: Yes (TRENA DONAHUE) Past Eqwxcrt-Mcbmop-Kugeyv Hx Patient Social History Tobacco Use?: No Use of E-Cig and/or Vaping dev: No Substance use?: No Alcohol Use?: No Pt feels they are or have been: No (TRENA DONAHUE) Immunizations Up To Date Tetanus Booster (TDap): Unknown Influenza Vaccine Up-to-Date: Yes; Up-to-Date First/Initial COVID19 Vaccinat: 2020 Second COVID19 Vaccination Nico: 2020 Third COVID19 Vaccination Date: UNKNOWN (TRENA DONAHUE) Seasonal Allergies Seasonal Allergies: No (TRENA DONAHUE) Past Medical History Surgery/Hospitalization HX: HTN, diabetes, anemia, chronic diarrhea Surgeries: Yes (RIGHT FOOT, RIGHT WRIST, LEFT KNEE SCOPE; CARDIAC CATH) Orthopedic Respiratory: Yes (CHRONIC DYSPNEA) Currently Using CPAP: No Currently Using BIPAP: No Cardiac: Yes Chronic Edema/Swelling, Hypertension 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 Genitourinary: Yes (INCONTINENCE) Gastrointestinal: Yes (rectal bleeding) Gastroesophageal Reflux, Gastrointestinal Bleed, Chronic Diarrhea Musculoskeletal: Yes (LEFT ALCAZAR'S CYST;L KNEE SCOPE; R FOOT SURGERY;R WRIST SURGERY ) Arthritis, Fractures Endocrine: Yes (MORBID OBESITY) HEENT: No Cancer: No Psychosocial: Yes Sleep Difficulties, Anxiety, Depression Integumentary: No Blood Disorders: Yes (ANEMIA) Adverse Reaction/Blood Tranf: No (TRENA DONAHUE) Family Medical History Reviewed Nursing Family Hx (TRENA DONAHUE) Cardiovascular disease 19 MOTHER Neoplasm 19 FATHER Heart Disease, Cancer EGD/COLONOSCOPY 10/[address] PULLIAM FOR ANEMIA CARDIAC CATH 02/07/[address] RUVALCABA: CONCLUSION: 1. Dominant circumflex artery with mild coronary artery disease nonobstructive disease 2. Normal left ventricular end-diastolic pressure (TRENA DONAHUE) Physical Exam Vital Signs Vital Signs - First Documented 06/24/22 14:58 Temp 37.5 Pulse 87 Resp 18 B/P (MAP) 160/62 (94) Pulse Ox 98 O2 Delivery Room Air (ABI WATERS MD) Vital Signs Capillary Refill : Less Than 3 Seconds (TRENA DONAHUE) Height/Weight/BMI Height: 5'0.00" Weight: 265lbs. 5.0oz. [id number]; 51.00 BMI Method:Stated General Appearance: WD/WN, no apparent distress HEENT: PERRL/EOMI, normal ENT inspection, other (Oral mucosa pink and moist.) (TRENA DONAHUE) Progress/Results/Core Measures Results/Orders Lab Results Laboratory Tests Test 06/24/22 15:50 Range/Units Urine Color YELLOW Urine Clarity CLEAR Urine pH 6.5 5-9 Urine Specific [place] 1.010 L 1.016-1.022 Urine Protein NEGATIVE NEGATIVE Urine Glucose (UA) NEGATIVE NEGATIVE Urine Ketones NEGATIVE NEGATIVE Urine Nitrite NEGATIVE NEGATIVE Urine Bilirubin NEGATIVE NEGATIVE Urine Urobilinogen 0.2 < = 1.0 MG/DL Urine Leukocyte Esterase 1+ H NEGATIVE Urine RBC (Auto) 1+ H NEGATIVE Urine RBC 2-5 H /HPF Urine WBC 2-5 /HPF Urine Squamous Epithelial Cells 5-10 /HPF Urine Crystals NONE /LPF Urine Bacteria MODERATE H /HPF Urine Casts NONE /LPF Urine Mucus NEGATIVE /LPF Urine Culture Indicated YES (ABI WATERS MD) Vital Signs/I&O 06/24/22 06/24/22 14:58 16:54 Temp 37.5 Pulse 87 82 Resp 18 18 B/P (MAP) 160/62 (94) 148/71 Pulse Ox 98 97 O2 Delivery Room Air Room Air (ABI WATERS MD) Blood Pressure Mean: 94 Progress Progress Note : Time: 15:10 Progress Note Patient assessed, discussed options and care. She was agreeable to Zofran 8 mg orally. We will monitor and try ice chips and 15 to 20 minutes. 1600 UA neg for Ketones, taking ice chips and crackers. No Vomiting or Diarrhea since presenting. UTI noted on UA. Discussed options of fluids and labs, patient reports improvement. Will monitor and plan discharge if no further symptoms. 1630 patient continues to be asymptomatic. Discharge instructions and return precautions reviewed. (TRENA DONAHUE) Departure Impression Primary Impression: Nausea & vomiting Qualified Codes: R11.2 - Nausea with vomiting, unspecified Additional Impressions: Diarrhea Qualified Codes: R19.7 - Diarrhea, unspecified UTI (urinary tract infection) Qualified Codes: N30.01 - Acute cystitis with hematuria Disposition: HOME, SELF-CARE Condition: Improved Departure-Patient Inst. Decision time for Depature: 16:30 (TRENA DONAHUE) Referrals: [facility] (PCP) Primary Care Physician [facility]/Doug (Family) Primary Care Physician Patient Instructions: Nausea and Vomiting, Adult (DC) Add. Discharge Instructions: Clear liquid diet for the next 4 to 6 hours and then bland diet as tolerated. Continue to use the Imodium 2 tablets immediately after any episode of diarrhea. You can take up to 8 tablets in 24 hours. Use the Zofran every 4-6 hours as needed for nausea and vomiting. take the antibiotics as prescribed for UTI. Follow-up with your primary care provider or [facility] walk-in if symptoms are not improving or worsen. Return to the emergency department for new, urgent healthcare problems. All discharge instructions reviewed with patient and/or family. Voiced understanding. Scripts Ondansetron (Ondansetron Odt) 4 Mg Tab.rapdis 4 MG PO Q6H PRN for NAUSEA/VOMITING, #8 TAB 0 Refills Prov: TRENA DONAHUE 06/24/22 Nitrofurantoin Monohyd/M-Cryst (Macrobid 100 mg Capsule) 100 Mg Capsule 1 TAB PO BID, #10 CAP 0 Refills Prov: TRENA DONAHUE 06/24/22 ATTENDING PHYSICIAN NOTE: I was physically present as attending physician in the emergency department during the care of this patient, but I was not directly involved in the decision making or delivery of care for this patient. (ABI WATERS MD) TRENA DONAHUE June 24, 2022 16:13 ABI WATRES MD June 24, 2022 21:23
[2022-06-24] MEDS ORDERED: NS IV 1000 ML 1,000 ML IV SCH (16:15)
[2022-06-24 16:18] LABS: BILIRUBIN,URINE NEGATIVE (NEGATIVE); CLARITY,URINE CLEAR; COLOR,URINE YELLOW; GLUCOSE, URINE (UA) NEGATIVE (NEGATIVE); KETONES,URINE NEGATIVE (NEGATIVE); LEUKOCYTE ESTERASE ,URINE 1+ (NEGATIVE); NITRITE,URINE NEGATIVE (NEGATIVE); PH,URINE 6.5 (5-9); PROTEIN,URINE NEGATIVE (NEGATIVE)
[2022-06-24 16:33] LABS: BACTERIA,URINE MODERATE /HPF
[2022-06-24] MEDS ORDERED: ONDA4TAB11 PO (16:43)
[2022-06-24] MEDS ORDERED: NITR-65 PO (16:43)
[2022-06-24 16:54] VITALS: BP 148/71
== END 2022-06-24 16:54 | disposition home or self-care (01) ==
LOC: EDUNIT# 14:51 → ER 14:54
DX: N39.0 Urinary tract infection, site not specified (principal); R19.7 Diarrhea, unspecified; R11.2 Nausea with vomiting, unspecified; E66.01 Morbid (severe) obesity due to excess calories; Z68.43 Body mass index [BMI] 50.0-59.9, adult; Z88.0 Allergy status to penicillin
CPT/HCPCS: 81000; 87077; 87088; 99283

== ENCOUNTER 2022-07-25 10:22 | Emergency (ER) | payer MEDICARE, OTHER ==
[~2022-07-25] VITALS: Ht 157.5 cm; Wt 117.9 kg
[~2022-07-25 10:22] MED LIST changes: +NITR-65 PO; +ONDA4TAB11 PO
[2022-07-25 12:49] LABS: BASOPHILS % (AUTO) 1 % (0-10); EOSINOPHILS # (AUTO) 0.1 10^3/uL (0.0-0.3); EOSINOPHILS % (AUTO) 1 % (0-10); HEMATOCRIT 26 % (35-52); HEMOGLOBIN 7.3 g/dL (11.5-16.0); LYMPHOCYTES % (AUTO) 23 % (12-44); MEAN CORPUSCULAR HEMOGLOBIN 22 pg (25-34); MEAN CORPUSCULAR HGB CONC 28 g/dL (32-36); MEAN CORPUSCULAR VOLUME 79 fL (80-99); MEAN PLATELET VOLUME 9.6 fL (9.0-12.2); MONOCYTES # (AUTO) 0.6 10^3/uL (0.0-1.0); MONOCYTES % (AUTO) 7 % (0-12); NEUTROPHILS # (AUTO) 5.9 10^3/uL (1.8-7.8); NEUTROPHILS % (AUTO) 68 % (42-75); PLATELET COUNT 243 10^3/uL (130-400); WHITE BLOOD COUNT 8.7 10^3/uL (4.3-11.0)
--- NOTE | 2022-07-25 12:55 | ED General ---
General Chief Complaint: General Problems/Pain Stated Complaint: HEMOGLOBIN LOW Nursing Triage Note: PT AMB TO RM 7 WITH COMPLAINT OF LOW HGB AND SOA. STATES HAD BLOOD DRAWN ON SATURDAY BY PCP AND WAS CALLED YESTERDAY ADN TOLD SHE HAD LOW HGB AND TO COME TO ER. STATES SHE HAS HAD BLOOD TRANSFUSIONS IN THE PAST, BUT THEY HAVE NOT FOUND A SOURCE OF BLEEDING. STATES SHE DID HAVE A PERIOD LAST WEEK. Source of Information: Patient Exam Limitations: No Limitations History of Present Illness Date Seen by Provider: Jul 25, 2022 Time Seen by Provider: 12:22 Initial Comments 66-year-old female presents to the ER for concerns of low hemoglobin. She states she was seen on 07/20/2022, and had blood work completed. She was called today and told that her hemoglobin was low and that she might need a blood transfusion. Patient reports she has had approximately 4 blood transfusions in the past for low hemoglobin level. She states she is supposed to take an iron supplement, but does not like it because it upsets her stomach. She states that recently she has had some bleeding that she thinks is coming from her vagina. Patient is postmenopausal. She denies any bleeding from her rectum, gums, nose, denies hematuria bloody emesis. She denies dizziness, chest pain, abdominal pain, vomiting. She reports chronic shortness of air, states this has been going on for a year. Allergies and Home Medications Allergies Coded Allergies: amoxicillin (Verified Allergy, Unknown, 11/03/21) clavulanic acid (Verified Allergy, Unknown, 11/03/21) Patient Home Medication List Home Medication List Reviewed: Yes Albuterol Sulfate (Ventolin Hfa) 1 Puff Puff, 2 PUFF IH Q4H PRN for SHORTNESS OF BREATH, (Reported) Entered as Reported by: MIGUEL ARIAS on 10/28/18 1058 Budesonide/Formoterol Fumarate (Symbicort 160-4.5 Mcg Inhaler) 10.2 Gm Hfa.aer.ad, 2 PUFF IH BID, (Reported) Entered as Reported by: MIGUEL ARIAS on 10/28/18 1058 Dicyclomine HCl (Dicyclomine HCl) 20 Mg Tablet, 20 MG PO QID PRN for STOMACH UPSET, (Reported) Entered as Reported by: MIGUEL ARIAS on 10/28/18 1058 Diphenhydramine HCl (Sleep-Aid) 25 Mg Capsule, 25 MG PO HS PRN for SLEEP, (Reported) Entered as Reported by: MIGUEL ARIAS on 10/28/18 105 Fluoxetine HCl (Prozac) 40 Mg Capsule, 80 MG PO DAILY, (Reported) Entered as Reported by: LAURENT ZAVALETA on 02/07/22 0953 Furosemide (Furosemide) 20 Mg Tablet, 20 MG PO DAILY, (Reported) Entered as Reported by: LAURENT ZAVALETA on 02/07/22 09 Hydrocodone Bit/Acetaminophen (Lortab 5 Mg Tablet) 1 Each Tablet, 1 TAB PO TID PRN for PAIN-MODERATE, (Reported) Entered as Reported by: MIGUEL ARIAS on 10/28/18 105 Levothyroxine Sodium (Levothyroxine) 50 Mcg Capsule, 50 MCG PO DAILY, (Reported) Entered as Reported by: LAURENT ZAVALETA on 02/07/22 0953 Lisinopril (Lisinopril) 40 Mg Tablet, 20 MG PO DAILY, (Reported) Entered as Reported by: NATASHA GEIGER on 11/15/16 0944 Magnesium Oxide (Magnesium) 400 Mg Tablet, 400 MG PO HS, (Reported) Entered as Reported by: MIGUEL ARIAS on 10/28/18 105 Melatonin (Melatonin) 5 Mg Capsule, 5 MG PO HS, (Reported) Entered as Reported by: MIGUEL ARIAS on 10/28/18 105 Nitrofurantoin Monohyd/M-Cryst (Macrobid 100 mg Capsule) 100 Mg Capsule, 1 TAB PO BID Prescribed by: TRENA DONAHUE on 06/24/22 164 Omeprazole Magnesium (Prilosec Otc) 20 Mg Tablet.dr, 20 MG PO DAILY PRN for HEARTBURN, (Reported) Entered as Reported by: MIGUEL ARIAS on 10/28/18 105 Ondansetron (Ondansetron Odt) 4 Mg Tab.rapdis, 4 MG PO Q6H PRN for NAUSEA/VOMITING Prescribed by: TRENA DONAHUE on 06/24/22 164 Oxymetazoline HCl (Afrin) 0.05 % Mist, 15 ML NS DAILY, (Reported) Entered as Reported by: LAURENT ZAVALETA on 02/07/22 09 Review of Systems Review of Systems Constitutional: see HPI Past Hhqqbhd-Qkwhni-Wgbxbo Hx Patient Social History Tobacco Use?: No Use of E-Cig and/or Vaping dev: No Substance use?: No Alcohol Use?: No Pt feels they are or have been: No Immunizations Up To Date Tetanus Booster (TDap): Unknown First/Initial COVID19 Vaccinat: 2020 Second COVID19 Vaccination Nico: 2020 Third COVID19 Vaccination Date: UNKNOWN Seasonal Allergies Seasonal Allergies: No Past Medical History Surgery/Hospitalization HX: HTN, diabetes, anemia, chronic diarrhea Surgeries: Yes (RIGHT FOOT, RIGHT WRIST, LEFT KNEE SCOPE; CARDIAC CATH) Orthopedic Respiratory: Yes (CHRONIC DYSPNEA) Currently Using CPAP: No Currently Using BIPAP: No Cardiac: Yes Chronic Edema/Swelling, Hypertension 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 PULLIAM FOR ANEMIA CARDIAC CATH 02/07/[address] RUVALCABA: CONCLUSION: 1. Dominant circumflex artery with mild coronary artery disease nonobstructive disease 2. Normal left ventricular end-diastolic pressure Physical Exam Vital Signs Vital Signs - First Documented 07/25/22 11:36 Temp 35.9 Pulse 62 Resp 18 B/P (MAP) 141/65 (90) Pulse Ox 99 O2 Delivery Room Air Capillary Refill : Less Than 3 Seconds Height, Weight, BMI Height: 5'0.00" Weight: 265lbs. 5.0oz. 120.780413me; 47.00 BMI Method:Stated General Appearance: No Apparent Distress, WD/WN Neck: Normal Inspection, Supple Respiratory: Lungs Clear, Normal Breath Sounds, No Accessory Muscle Use, No Respiratory Distress Cardiovascular: Regular Rate, Rhythm Rectal: Normal Rectal Tone, Heme Negative Stool Genital/Rectal: Normal Vaginal Exam (Small amount of white vaginal discharge, no vaginal bleeding) Extremity: Normal Inspection, Normal Range of Motion Neurologic/Psychiatric: Alert, Normal Mood/Affect Skin: Normal Color, Warm/Dry Progress/Results/Core Measures Suspected Sepsis SIRS Temperature: Pulse: 62 Respiratory Rate: 18 Laboratory Tests 07/25/22 12:39: White Blood Count 8.7 Blood Pressure 141 /65 Mean: 90 Laboratory Tests 07/25/22 12:39: Platelet Count 243 Results/Orders Lab Results Laboratory Tests Test 07/25/22 12:39 Range/Units White Blood Count 8.7 4.3-11.0 10^3/uL Red Blood Count 3.27 L 3.80-5.11 10^6/uL Hemoglobin 7.3 L 11.5-16.0 g/dL Hematocrit 26 L 35-52 % Mean Corpuscular Volume 79 L 80-99 fL Mean Corpuscular Hemoglobin 22 L 25-34 pg Mean Corpuscular Hemoglobin Concent 28 L 32-36 g/dL Red Cell Distribution Width 19.0 H 10.0-14.5 % Platelet Count 243 130-400 10^3/uL Mean Platelet Volume 9.6 9.0-12.2 fL Immature Granulocyte % (Auto) 1 % Neutrophils (%) (Auto) 68 42-75 % Lymphocytes (%) (Auto) 23 12-44 % Monocytes (%) (Auto) 7 0-12 % Eosinophils (%) (Auto) 1 0-10 % Basophils (%) (Auto) 1 0-10 % Neutrophils # (Auto) 5.9 1.8-7.8 10^3/uL Lymphocytes # (Auto) 2.0 1.0-4.0 10^3/uL Monocytes # (Auto) 0.6 0.0-1.0 10^3/uL Eosinophils # (Auto) 0.1 0.0-0.3 10^3/uL Basophils # (Auto) 0.0 0.0-0.1 10^3/uL Immature Granulocyte # (Auto) 0.1 0.0-0.1 10^3/uL Micro Results Microbiology 07/25/22 Wet Prep - Final, Complete My Orders Orders - ZULMA WANG APRN Cbc With Automated Diff (07/25/22 12:22) Type And Screen (07/25/22 12:47) Wet Prep (07/25/22 13:42) Fecal Occult Bedside (07/25/22 13:42) Vital Signs/I&O 07/25/22 07/25/22 11:36 14:32 Temp 35.9 35.9 Pulse 62 68 Resp 18 18 B/P (MAP) 141/65 (90) 140/72 Pulse Ox 99 99 O2 Delivery Room Air Room Air Capillary Refill : Less Than 3 Seconds Blood Pressure Mean: 90 Progress Note : Progress Note Patient seen and evaluated, resting comfortably in bed, no acute distress. CBC and type and screen ordered. Will do a vaginal exam and a rectal exam to check for occult blood in stool. CBC shows decreased RBCs 3.7 decreased hemoglobin 7.3, decreased hematocrit 26, decreased MCV 79, decreased MCH 22. Vaginal exam completed, no bleeding noted. Fecal occult was also negative for blood. Wet prep negative for trichomoniasis, clue cells, yeast. Results discussed with patient. Patient informed that we cannot do a blood transfusion with her hemoglobin of 7.3. Patient instructed to follow-up with primary care provider regarding anemia and subjective vaginal bleeding. Patient agreeable to discharge at this time. Discharge instructions and return precautions provided. Departure Impression Primary Impression: Anemia Qualified Codes: D64.9 - Anemia, unspecified Disposition: HOME, SELF-CARE Condition: Stable Departure-Patient Inst. Decision time for Depature: 14:03 Referrals: [facility] [place] ([place]P/Family) Primary Care Physician Patient Instructions: Anemia, Possibly From Low Iron, Adult ED Add. Discharge Instructions: Your hemoglobin level was 7.3, this is low, but not low enough to require a blood transfusion. Follow-up with your primary care provider regarding your anemia and vaginal bleeding. You will need a Pap smear to evaluate your vaginal bleeding. You should start taking an iron supplement again. You can try Vitron C, this contains vitamin C which helps absorb iron. You can also take regular iron with orange juice to help absorption. Return for dizziness, chest pain, worsening shortness of breath, passing out, increased bleeding, or any other new, concerning, or worsening symptoms. All discharge instructions reviewed with patient and/or family. Voiced understanding. ZULMA WANG APRN Jul 25, 2022 12:55
[2022-07-25 14:32] VITALS: BP 140/72
== END 2022-07-25 14:32 | disposition home or self-care (01) ==
LOC: EDUNIT# 10:22 → ER 10:24
DX: D64.9 Anemia, unspecified (principal); E66.01 Morbid (severe) obesity due to excess calories; Z68.42 Body mass index [BMI] 45.0-49.9, adult
CPT/HCPCS: 36415; 82274; 85025; 86850; 86900; 86901; 87210

== ENCOUNTER 2022-12-14 08:37 | Outpatient (RCR) | payer MEDICARE, OTHER ==
[2022-11-20 13:58] LABS: BASOPHILS % (AUTO) 0 % (0-10); EOSINOPHILS % (AUTO) 0 % (0-10); HEMATOCRIT 27 % (35-52); HEMOGLOBIN 7.1 g/dL (11.5-16.0); LYMPHOCYTES # (AUTO) 1.9 10^3/uL (1.0-4.0); LYMPHOCYTES % (AUTO) 22 % (12-44); MEAN CORPUSCULAR HEMOGLOBIN 20 pg (25-34); MEAN CORPUSCULAR HGB CONC 27 g/dL (32-36); MEAN CORPUSCULAR VOLUME 76 fL (80-99); MEAN PLATELET VOLUME 9.4 fL (9.0-12.2); MONOCYTES # (AUTO) 0.6 10^3/uL (0.0-1.0); MONOCYTES % (AUTO) 7 % (0-12); NEUTROPHILS % (AUTO) 70 % (42-75); PLATELET COUNT 303 10^3/uL (130-400); WHITE BLOOD COUNT 8.6 10^3/uL (4.3-11.0)
[2022-11-20 14:23] LABS: ALBUMIN 3.7 GM/DL (3.2-4.5); BILIRUBIN,TOTAL 0.4 MG/DL (0.1-1.0); CALCIUM 8.9 MG/DL (8.5-10.1); CREATININE SERUM 0.84 MG/DL (0.60-1.30); POTASSIUM 4.4 MMOL/L (3.6-5.0); TOTAL PROTEIN 7.1 GM/DL (6.4-8.2)
[~2022-12-14 08:37] MED LIST changes: +FERRIC CARBOXYMALTOSE INJ 750 MG in NS (IVPB) 250 ML 250 ML IV SCH
[2022-12-14 09:31] VITALS: BP 135/61
== END 2022-12-18 | disposition home or self-care (01) ==
LOC: ONC 08:37
PROVIDERS: ATTEND Internal Medicine Hematology & Oncology
DX: D50.9 Iron deficiency anemia, unspecified (principal); I10 Essential (primary) hypertension; E66.01 Morbid (severe) obesity due to excess calories; E78.2 Mixed hyperlipidemia
CPT/HCPCS: 80053; 82728; 83540; 83550; 85025; G0463; 36415; 96365; 99204

== ENCOUNTER 2022-12-21 07:57 | Outpatient (RCR) | payer MEDICARE, OTHER ==
[~2022-12-21 07:57] MED LIST changes: -FERRIC CARBOXYMALTOSE INJ 750 MG in NS (IVPB) 250 ML 250 ML IV SCH
[2022-12-21] MEDS ORDERED: FERRIC CARBOXYMALTOSE INJ 750 MG in NS (IVPB) 250 ML 250 ML IV SCH (08:15)
[2022-12-21 08:56] VITALS: BP 143/63
== END 2023-01-17 | disposition home or self-care (01) ==
LOC: ONC 07:57
PROVIDERS: ATTEND Internal Medicine Hematology & Oncology
DX: Z51.11 Encounter for antineoplastic chemotherapy (principal); D50.9 Iron deficiency anemia, unspecified; I10 Essential (primary) hypertension; E66.01 Morbid (severe) obesity due to excess calories; E78.2 Mixed hyperlipidemia
CPT/HCPCS: 36415; 96365